=== PATIENT | male | born 1970 | race Caucasian/White ===

== ENCOUNTER → 2019-09-11 08:51 | Outpatient (BNVA) | payer MEDICARE, MEDICAID, SELFPAY | PROVIDERS: Family Provider Nurse Practitioner Family; PCP Nurse Practitioner Family; Visit Provider Nurse Practitioner Family | DX: E11.8 Type 2 diabetes mellitus with unspecified complications (principal); E78.5 Hyperlipidemia, unspecified; I10 Essential (primary) hypertension; J44.9 Chronic obstructive pulmonary disease, unspecified; I73.9 Peripheral vascular disease, unspecified; G47.33 Obstructive sleep apnea (adult) (pediatric); Z86.73 Personal history of transient ischemic attack (TIA), and cerebral infarction without residual deficits; Z91.19 Patient's noncompliance with other medical treatment and regimen | CPT/HCPCS: 80053; 80061; 83036; 85025 ==

== ENCOUNTER → 2019-12-04 08:54 | Outpatient (BNVA) | payer MEDICARE, MEDICAID, SELFPAY | PROVIDERS: Family Provider Nurse Practitioner Family; PCP Nurse Practitioner Family; Visit Provider Nurse Practitioner | DX: E11.65 Type 2 diabetes mellitus with hyperglycemia (principal); I10 Essential (primary) hypertension | CPT/HCPCS: 80053; 80061; 83036; 85025 ==

== ENCOUNTER → 2020-06-25 09:49 | Outpatient (BNVA) | payer MEDICARE, MEDICAID, SELFPAY | PROVIDERS: Family Provider Nurse Practitioner Family; PCP Nurse Practitioner Family; Visit Provider Nurse Practitioner Family | DX: E11.65 Type 2 diabetes mellitus with hyperglycemia (principal); E78.5 Hyperlipidemia, unspecified; J44.9 Chronic obstructive pulmonary disease, unspecified; I10 Essential (primary) hypertension; F41.9 Anxiety disorder, unspecified; G47.33 Obstructive sleep apnea (adult) (pediatric); Z86.73 Personal history of transient ischemic attack (TIA), and cerebral infarction without residual deficits; I73.9 Peripheral vascular disease, unspecified; Z91.19 Patient's noncompliance with other medical treatment and regimen; Z12.11 Encounter for screening for malignant neoplasm of colon | CPT/HCPCS: 80053; 80061; 83036; 84443; 85025 ==

== ENCOUNTER → 2020-11-19 08:54 | Outpatient (BNVA) | payer OTHER, MEDICAID, SELFPAY | PROVIDERS: Family Provider Nurse Practitioner Family; PCP Nurse Practitioner Family; Visit Provider Nurse Practitioner Family | DX: I10 Essential (primary) hypertension (principal); E11.65 Type 2 diabetes mellitus with hyperglycemia; E78.5 Hyperlipidemia, unspecified; Z86.73 Personal history of transient ischemic attack (TIA), and cerebral infarction without residual deficits; G47.33 Obstructive sleep apnea (adult) (pediatric); I73.9 Peripheral vascular disease, unspecified; F41.9 Anxiety disorder, unspecified; J44.9 Chronic obstructive pulmonary disease, unspecified; Z99.81 Dependence on supplemental oxygen; Z91.19 Patient's noncompliance with other medical treatment and regimen | CPT/HCPCS: 80053; 80061; 83036; 84443; 85025 ==

== ENCOUNTER → 2021-02-13 10:07 | Outpatient (BNVA) | payer OTHER, MEDICAID, SELFPAY | PROVIDERS: Family Provider Nurse Practitioner Family; PCP Nurse Practitioner Family; Visit Provider Nurse Practitioner Family | DX: I10 Essential (primary) hypertension (principal); E11.65 Type 2 diabetes mellitus with hyperglycemia; E11.8 Type 2 diabetes mellitus with unspecified complications; F41.9 Anxiety disorder, unspecified; J44.9 Chronic obstructive pulmonary disease, unspecified; E78.5 Hyperlipidemia, unspecified; F17.200 Nicotine dependence, unspecified, uncomplicated; Z99.81 Dependence on supplemental oxygen; Z91.19 Patient's noncompliance with other medical treatment and regimen; I73.9 Peripheral vascular disease, unspecified; G47.33 Obstructive sleep apnea (adult) (pediatric); Z86.73 Personal history of transient ischemic attack (TIA), and cerebral infarction without residual deficits | CPT/HCPCS: 80053; 80061; 83036; 84443; 85025 ==

== ENCOUNTER → 2021-07-06 09:59 | Outpatient (BNVA) | payer MEDICARE, MEDICAID, SELFPAY | PROVIDERS: Family Provider Nurse Practitioner Family; PCP Nurse Practitioner Family; Visit Provider Nurse Practitioner Family | DX: E11.65 Type 2 diabetes mellitus with hyperglycemia; E78.5 Hyperlipidemia, unspecified; J44.9 Chronic obstructive pulmonary disease, unspecified; I10 Essential (primary) hypertension; I73.9 Peripheral vascular disease, unspecified; F17.200 Nicotine dependence, unspecified, uncomplicated; Z99.81 Dependence on supplemental oxygen | CPT/HCPCS: 80053; 80061; 83036; 84443; 85025 ==

== ENCOUNTER → 2022-01-21 10:44 | Outpatient (BNVA) | payer MEDICARE, MEDICAID, SELFPAY | PROVIDERS: Family Provider Nurse Practitioner Family; PCP Nurse Practitioner Family; Visit Provider Nurse Practitioner Family | DX: E11.65 Type 2 diabetes mellitus with hyperglycemia (principal); E78.5 Hyperlipidemia, unspecified; I10 Essential (primary) hypertension; J44.9 Chronic obstructive pulmonary disease, unspecified; F41.9 Anxiety disorder, unspecified; E11.621 Type 2 diabetes mellitus with foot ulcer; L97.509 Non-pressure chronic ulcer of other part of unspecified foot with unspecified severity; Z86.73 Personal history of transient ischemic attack (TIA), and cerebral infarction without residual deficits; G47.33 Obstructive sleep apnea (adult) (pediatric); I73.9 Peripheral vascular disease, unspecified; F17.200 Nicotine dependence, unspecified, uncomplicated; Z99.81 Dependence on supplemental oxygen; Z91.19 Patient's noncompliance with other medical treatment and regimen | CPT/HCPCS: 80053; 80061; 83036; 84443; 85025 ==

== ENCOUNTER → 2022-06-22 08:52 | Outpatient (BNVA) | payer MEDICARE, MEDICAID, SELFPAY | PROVIDERS: Family Provider Nurse Practitioner Family; PCP Nurse Practitioner Family; Visit Provider Nurse Practitioner Family | DX: J44.9 Chronic obstructive pulmonary disease, unspecified (principal); E11.8 Type 2 diabetes mellitus with unspecified complications; E78.5 Hyperlipidemia, unspecified; E11.65 Type 2 diabetes mellitus with hyperglycemia; F41.9 Anxiety disorder, unspecified; Z12.5 Encounter for screening for malignant neoplasm of prostate; I10 Essential (primary) hypertension; Z23 Encounter for immunization; N52.9 Male erectile dysfunction, unspecified | CPT/HCPCS: 80053; 80061; 83036; 84443; 85025; G0103 ==

== ENCOUNTER → 2022-11-18 11:18 | Outpatient (BNVA) | payer MEDICARE, MEDICAID, SELFPAY | PROVIDERS: Family Provider Nurse Practitioner Family; PCP Nurse Practitioner Family; Visit Provider Nurse Practitioner Family | DX: E11.65 Type 2 diabetes mellitus with hyperglycemia (principal) | CPT/HCPCS: 80053; 80061; 83036; 84443; 85025 ==

== ENCOUNTER → 2022-11-25 10:33 | Outpatient (BNVA) | payer MEDICARE, MEDICAID, SELFPAY | PROVIDERS: Family Provider Nurse Practitioner Family; PCP Nurse Practitioner Family; Visit Provider Nurse Practitioner Family | DX: S29.9XXA Unspecified injury of thorax, initial encounter (principal); R05.9 Cough, unspecified; X58.XXXA Exposure to other specified factors, initial encounter | CPT/HCPCS: 71046 ==

== ENCOUNTER → 2023-05-16 11:35 | Outpatient (BNVA) | payer MEDICARE, MEDICAID, SELFPAY | PROVIDERS: Family Provider Nurse Practitioner Family; PCP Nurse Practitioner Family; Visit Provider Nurse Practitioner Family | DX: E11.8 Type 2 diabetes mellitus with unspecified complications (principal); E11.65 Type 2 diabetes mellitus with hyperglycemia | CPT/HCPCS: 80053; 80061; 83036; 84443; 85025 ==

== ENCOUNTER → 2023-05-17 14:42 | Outpatient (BNVA) | payer MEDICARE, MEDICAID, SELFPAY | PROVIDERS: Family Provider Nurse Practitioner Family; PCP Nurse Practitioner Family; Visit Provider Nurse Practitioner Family | DX: L72.0 Epidermal cyst (principal); L08.9 Local infection of the skin and subcutaneous tissue, unspecified | CPT/HCPCS: 87070 ==

== ENCOUNTER → 2023-07-11 12:16 | Outpatient (BNVA) | payer MEDICARE, MEDICAID, SELFPAY | PROVIDERS: Family Provider Nurse Practitioner Family; PCP Nurse Practitioner Family; Referring Provider Nurse Practitioner Family; Visit Provider Dermatology | DX: L82.1 Other seborrheic keratosis (principal); L72.0 Epidermal cyst; L81.3 Cafe au lait spots; L57.8 Other skin changes due to chronic exposure to nonionizing radiation; D37.01 Neoplasm of uncertain behavior of lip | CPT/HCPCS: 40490; 99204 ==

== ENCOUNTER → 2023-09-22 10:01 | Outpatient (BNVA) | payer MEDICARE, MEDICAID, SELFPAY | PROVIDERS: Family Provider Nurse Practitioner Family; PCP Nurse Practitioner Family; Visit Provider Nurse Practitioner Family | DX: E11.42 Type 2 diabetes mellitus with diabetic polyneuropathy (principal); E11.8 Type 2 diabetes mellitus with unspecified complications; E11.65 Type 2 diabetes mellitus with hyperglycemia; Z12.5 Encounter for screening for malignant neoplasm of prostate; N52.9 Male erectile dysfunction, unspecified | CPT/HCPCS: 80053; 80061; 83036; 84443; 85025 ==

== ENCOUNTER → 2024-06-13 10:33 | Outpatient (BNVA) | payer MEDICARE, MEDICAID, SELFPAY | PROVIDERS: Family Provider Nurse Practitioner Family; PCP Nurse Practitioner Family; Visit Provider Clinical Nurse Specialist Adult Health | DX: E11.8 Type 2 diabetes mellitus with unspecified complications (principal); E11.65 Type 2 diabetes mellitus with hyperglycemia; E78.5 Hyperlipidemia, unspecified | CPT/HCPCS: 80053; 80061; 83036; 85025 ==

== ENCOUNTER 2024-06-28 09:41 | Outpatient (CLI) | payer MEDICARE, MEDICAID, SELFPAY ==
--- NOTE | 2024-06-28 10:45 | CT_ITS ---
WS: [id number] LDCT LUNG CANCER SCREENING TECHNIQUE: Noncontrast CT of the chest with coronal and sagittal reformatted images. CLINICAL INFORMATION: F17.200 - Nicotine dependence, unspecified, uncomplicated COMPARISON: None. DLP: 59.39 mGy.cm DIvol: Mean CTDIvol: 1.10 (mGy) All CT scans at [facility] use at least one of these dose optimization techniques: automat ed exposure control; mA and/or kV adjustment per patient size (includes targeted exams where dose is matched to clinical indication); or iterative reconstruction. FINDINGS: 4 mm noncalcified nodule RIGHT lower lobe. Normal caliber thoracic aorta. No mediastinal or hilar lymphadenopathy. Calcified AP window and RIGHT hilar lymph nodes. Calcified granuloma RIGHT lower lobe. No suspicious minor parenchymal opacities. Adrenal glands are normal. Normal GE junction. No axillary lymphadenopathy. Moderate thoracic kyphosis. Hypertrophic changes thoracic spine. Disc osteophyte complexes in the mid thoracic spine. Moderate central canal stenosis at T8-T9 with LEFT paracentral disc osteophyte protr usion. Prominent facet arthropathy in the thoracic spine with ligamentum flavum calcification also re sults in mild to moderate multilevel central canal stenosis. Findings could be further evaluated with thoracic spine MRI. Subcutaneous skin lesion in the RIGHT upper back likely sebaceous cyst approximately T8 level. Recomm end clinical correlation. CT/CT lung screening [id number] IMPRESSION: Thoracic canal stenosis described above. Recommend thoracic spine M RI. LUNG-RADS: 2S-Benign Appearance or Behavior with Significant Findings FOLLOW UP: 12 Month: Continue annual screening with LDCT
== END 2024-06-28 09:42 | disposition home or self-care (01) ==
LOC: RAD 09:42
PROVIDERS: Family Provider Nurse Practitioner Family; PCP Clinical Nurse Specialist Adult Health; Visit Provider Clinical Nurse Specialist Adult Health
DX: Z12.2 Encounter for screening for malignant neoplasm of respiratory organs (principal); J44.9 Chronic obstructive pulmonary disease, unspecified; Z87.891 Personal history of nicotine dependence; R91.1 Solitary pulmonary nodule; J84.10 Pulmonary fibrosis, unspecified; M40.204 Unspecified kyphosis, thoracic region; M25.78 Osteophyte, vertebrae; M48.04 Spinal stenosis, thoracic region; M46.94 Unspecified inflammatory spondylopathy, thoracic region; L72.3 Sebaceous cyst
CPT/HCPCS: 71271

== ENCOUNTER 2024-07-11 05:08 | Inpatient (IN) | payer MEDICARE, MEDICAID, SELFPAY ==
[2024-07-11] VITALS (19 sets, daily range): BP systolic 112–185; BP diastolic 52–116; PULSE 88–112; RESP 12–84; TEMP 36.2–37.2; O2SAT 91–100; BMI 25.9
--- NOTE | 2024-07-11 05:12 | USR_ITS ---
PROCEDURE INFORMATION: Exam: US Abdomen, Limited; Right Upper Quadrant Exam date and time: 07/11/2024 5:49 AM Age: 54 years old Clinical indication: Abdominal pain; Acute; Additional info: Right upper quadrant pain, concern for cholecystitis TECHNIQUE: Imaging protocol: Real time ultrasound of the abdomen with image documentation. Limited exam focused on the right upper quadrant. COMPARISON: CT lung screening [id number] 06/28/2024 10:13 AM FINDINGS: Liver: Normal. No masses. Gallbladder: There is at least a single large gallstone within the gallbladder. No definite pericholecystic fluid or gallbladder wall thickening is noted. Biliary ducts: Normal. No stones. No dilation. Common bile duct measures 6 mm. Pancreas: The pancreas is poorly seen secondary to overlying bowel gas. Right kidney: Normal. No mass. No hydronephrosis. The right kidney measures 12.4 cm in length and is normal in echotexture. IVC: Obscured secondary to overlying bowel gas. Aorta: Limited visualization. The visualized portion of the aorta is normal in caliber. US/US gall bladder [id number] IMPRESSION: 1. Cholelithiasis.
--- NOTE | 2024-07-11 05:13 | ED_ITS ---
Documented by User: Ade Marcano MD 07/11/24 05:45 HPI - Abdominal Pain 2 General: Chief Complaint: Abdominal Pain Stated Complaint: abd pain Time Seen by Provider: 07/11/24 05:09 History of Present Illness: 54-year-old man with a history of tobacc o dependence diabetic neuropathy diabetic foot ulcer nighttime oxygen use, peripheral vascular disease, hypertension, hyperlipidemia who presents the emergency room with nausea vomiting and right upper quadrant abdominal pain. This started overnight. Also, of note he has on his right foot is fifth digit is black and appears about fall off. No known fevers. Related Data Home Medications Medication Instructions Recorded Confirmed empagliflozin 25 mg tablet 25 mg PO DAILY 07/11/24 07/11/24 (Jardiance) Previous Rx's Medication Instructions Recorded albuterol sulfate 90 mcg/actuation 2 inh inhalation Q4H PRN shortness 09/22/23 aerosol inhaler (Ventolin HFA) of breath or wheezing 30 days #6.7 grams aspirin 81 mg tablet,delayed 81 mg PO DAILY 30 days #30 tabs 09/22/23 release (Adult Low Dose Aspirin) fluticasone 250 mcg-salmeterol 50 1 inh inhalation BID 30 days #1 ea 09/22/23 mcg/dose blistr powdr for inhalation (Advair Diskus) citalopram 20 mg tablet 20 mg PO DAILY 30 days #30 tabs 06/13/24 dulaglutide 1.5 mg/0.5 mL 1.5 mg (0.5 mL) SUBCUT .weekly 30 06/13/24 subcutaneous pen injector days #4 ea (Trulicity) insulin degludec 100 unit/mL (3 70 unit (0.7 mL) SUBCUT DAILY 30 06/13/24 mL) subcutaneous pen (Tresiba days #15 mL FlexTouch U-100 insulin) lisinopril 2.5 mg tablet 2.5 mg PO DAILY 30 days #30 tabs 06/13/24 Allergies Allergy/AdvReac Type Severity Reaction Status Date / Time gabapentin Allergy Unknown Verified 07/11/24 05:16 Penicillins Allergy Unknown Verified 07/11/24 05:16 Review of Systems 2 Narrative: Constitutional symptoms: Negative except as documented in HPI. Skin symptoms: Negative except as documented in HPI. Eye symptoms: Negative except as documented in HPI. ENMT symptoms: Negative except as documented in HPI. Respiratory symptoms: Negative except as documented in HPI. Cardiovascular symptoms: Negative except as documented in HPI. Gastrointestinal symptoms: Negative except as documented in HPI. Genitourinary symptoms: Negative except as documented in HPI. Musculoskeletal symptoms: Negative except as documented in HPI. Neurologic symptoms: Negative except as documented in HPI. Psychiatric symptoms: Negative except as documented in HPI. Endocrine symptoms: Negative except as documented in HPI. PFSH ED 2 PFSH: Medical History (Updated 07/11/24 @ 07:37 by Oseas Swift MD) Tobacco abuse disorder Diabetic neuropathy Diabetic foot ulcer Dependence on nocturnal oxygen therapy History of MA (myocardial infarction) On supplemental oxygen by nasal cannula Enrolled in chronic care management Noncompliance Chronic obstructive pulmonary disease, unspecified Diabetes mellitus type 2 with complications, uncontrolled PVD (peripheral vascular disease) MARKO (obstructive sleep apnea) unable to tolerate Cpap due to claustrophobia Essential (primary) hypertension Hyperlipidemia, acquired History of TIA (transient ischemic attack) saw neurology after his TIA/stroke. Surgical History H/O right inguinal hernia repair Family History Other Diabetes Heart disease Stroke Social History (Updated 06/13/24 @ 20:00 by Junior Grey NP) Smoking and tobacco/nicotine status: current every day tobacco/nicotine user cigarettes [ Other cigarette details: 35 pack year history] Second hand smoke exposure: Yes Alcohol intake: never Substance/Drug Use: never Adopted: No Caregiver/support person: No Lives independently: Yes Household members: none Marital status: Single service: No Current occupational status: disabled Do you think of yourself as: Straight/Heterosexual Current gender identity: Male Physical Exam 2 Narrative: EXAM NARRATIVE: General: Alert, patient is in some distress with pain. Skin: Warm, dry. Head: Normocephalic, atraumatic. Neck: Supple, trachea midline. Eye: Extraocular movements are intact. Ears, nose, mouth and throat: mucosa moist. Cardiovascular: Regular, Normal peripheral perfusion. Respiratory: Lungs are clear to auscultation, respirations are non-labored, breath sounds are equal, Symmetrical chest wall expansion. Gastrointestinal: Soft, severe right upper quadrant tenderness, Non distended Musculoskeletal: Normal ROM, right fifth digit is black and smells foul. Neurological: Alert and oriented, No focal neurological deficit observed. Psychiatric: Cooperative, appropriate mood & affect. Course 2 Vital Signs: Vital signs: Vital Signs Temperature 97.9 F 07/11/24 05:11 Pulse Rate 88 07/11/24 05:16 Respiratory Rate 84 H 07/11/24 06:38 Blood Pressure 185/116 07/11/24 06:38 Pulse Oximetry 96 07/11/24 06:38 Oxygen Delivery Me thod Room Air 07/11/24 05:16 MDM - Abdominal Pain Medical Decision Making Patient care transitioned to Dr. Swift at shift change. Lab Data 07/11/24 05:30 07/11/24 05:30 Labs/Radiology: Laboratory Results WBC 10.92 10^3/uL (3.29-11.43) 07/11/24 05:30 RBC 5.06 10^6/uL (3.85-5.65) 07/11/24 05:30 Hgb 15.30 g/dL (11.27-16.99) 07/11/24 05:30 Hct 45.4 % (37-53) 07/11/24 05:30 MCV 89.7 fl (82-101) 07/11/24 05:30 MCH 30.2 pg (27-33) 07/11/24 05:30 MCHC 33.7 g/dL (30-55) 07/11/24 05:30 RDW 12.4 % (12.1-15.1) 07/11/24 05:30 Plt Count 328 10^3/cmm (157-399) 07/11/24 05:30 MPV 9.3 fL (7.4-10.4) 07/11/24 05:30 Neut % (Auto) 84.4 % 07/11/24 05:30 Lymph % (Auto) 9.5 % 07/11/24 05:30 Miller % (Auto) 4.7 % 07/11/24 05:30 Eos % (Auto) 0.7 % 07/11/24 05:30 Baso % (Auto) 0.4 % 07/11/24 05:30 Neut # (Auto) 9.22 10^3/uL (1.8-7.7) H 07/11/24 05:30 Lymph # (Auto) 1.0 10^3/uL (0.8-4.8) 07/11/24 05:30 Miller # (Auto) 0.5 10^3/uL (0.2-0.9) 07/11/24 05:30 Eos # (Auto) 0.1 10^3/uL (0.0-0.8) 07/11/24 05:30 Baso # (Auto) 0.0 10^3/uL (0.0-0.1) 07/11/24 05:30 Nucleated RBC % (auto) 0 % 07/11/24 05:30 Nucleated RBCs # 0.0 /100WBC 07/11/24 05:30 Sodium 140 mmol/L (136-145) 07/11/24 05:30 Potassium 3.7 mmol/L (3.5-5.1) 07/11/24 05:30 Chloride 99 mmol/L (98-107) 07/11/24 05:30 Carbon Dioxide 24 mmol/L (22-29) 07/11/24 05:30 Anion Gap 20.7 (5-19) H 07/11/24 05:30 BUN 7 mg/dL (6-20) 07/11/24 05:30 Creatinine 0.5 mg/dL (0.7-1.2) L 07/11/24 05:30 GFR Calculation 173.3 mL/min (90-130) H 07/11/24 05:30 Glucose 247 mg/dL (65-115) H 07/11/24 05:30 Estimat Average Glucose 306 07/11/24 05:30 Hemoglobin A1c 12.3 % (4.0-6.0) H 07/11/24 05:30 Calculated Osmolality 296 mOsm/kg (285-295) H 07/11/24 05:30 Lactic Acid 2.4 mmol/L (0.5-2.2) H 07/11/24 05:30 Calcium 8.9 mg/dL (8.5-10.5) 07/11/24 05:30 Total Bilirubin 0.7 mg/dL (0.15-1.2) 07/11/24 05:30 AST 11 U/L (0-40) 07/11/24 05:30 ALT 9 U/L (0-41) 07/11/24 05:30 Alkaline Phosphatase 98 U/L (40-130) 07/11/24 05:30 C-Reactive Protein 5.6 mg/L (0.0-4.9) H 07/11/24 05:30 Total Protein 6.7 g/dL (6.6-8.7) 07/11/24 05:30 Albumin 3.8 g/dL (3.5-5.2) 07/11/24 05:30 Globulin 2.9 g/dL (1.3-4.6) 07/11/24 05:30 Lipase 9 U/L (13-60) L 07/11/24 05:30 Coronavirus (PCR) Negative (Negative) 07/11/24 05:30 Influenza A (PCR) Negative (Negative) 07/11/24 05:30 Influenza Type B (PCR) Negative (Negative) 07/11/24 05:30 RSV (PCR) Negative (Negative) 07/11/24 05:30 Discharge Plan Discharge Patient Disposition: Admitted As Inpatient Clinical Impression: Uncontrolled diabetes mellitus, Gangrene of toe of right foot, Cholelithiasis, Angioedema of lips, Chronic hypertension Prescriptions: No Action citalopram 20 mg tablet 20 mg PO DAILY 30 Days Qty: 30 11RF Trulicity 1.5 mg/0.5 mL pen injector 1.5 mg SUBCUT .weekly 30 Days Qty: 4 11RF empagliflozin 25 mg tablet 25 mg PO DAILY 30 Days Qty: 30 11RF Tresiba FlexTouch U-100 100 unit/mL (3 mL) insulin pen 70 unit SUBCUT DAILY 30 Days Qty: 15 11RF lisinopril 2.5 mg tablet 2.5 mg PO DAILY 30 Days Qty: 30 11RF omeprazole 40 mg capsule,delayed release(DR/EC) 40 mg PO DAILY Qty: 30 11RF albuterol sulfate [Ventolin HFA] 90 mcg/actuation HFA aerosol inhaler 2 inh INHALATION Q4H PRN (Reason: shortness of breath or wheezing) 30 Days Qty: 6.7 2RF aspirin [Adult Low Dose Aspirin] 81 mg tablet,delayed release (DR/EC) 81 mg PO DAILY 30 Days Qty: 30 2RF fluticasone propion-salmeterol [Advair Diskus] 250-50 mcg/dose blister with device 1 inh INHALATION BID 30 Days Qty: 1 2RF Referrals: Ying Pearce FNP-C [Nurse Practitioner] - Junior Grey PUG MILL OPERATOR HELPER [Primary Care Provider] - Coding Level of Care Code ED Propagator for Chg Fwd Documented by User: Oseas Swift MD 07/11/24 07:37 HPI - Abdominal Pain 2 General: Chief Complaint: Abdominal Pain Stated Complaint: abd pain Time Seen by Provider: 07/11/24 05:09 History of Present Illness: Associated Symptoms: Denies chills, dysuria, fever(s) and syncope Related Data Home Medications Medication Instructions Recorded Confirmed empagliflozin 25 mg tablet 25 mg PO DAILY 07/11/24 07/11/24 (Jardiance) Previous Rx's Medication Instructions Recorded albuterol sulfate 90 mcg/actuation 2 inh inhalation Q4H PRN shortness 09/22/23 aerosol inhaler (Ventolin HFA) of breath or wheezing 30 days #6.7 grams aspirin 81 mg tablet,delayed 81 mg PO DAILY 30 days #30 tabs 09/22/23 release (Adult Low Dose Aspirin) fluticasone 250 mcg-salmeterol 50 1 inh inhalation BID 30 days #1 ea 09/22/23 mcg/dose blistr powdr for inhalation (Advair Diskus) citalopram 20 mg tablet 20 mg PO DAILY 30 days #30 tabs 06/13/24 dulaglutide 1.5 mg/0.5 mL 1.5 mg (0.5 mL) SUBCUT .weekly 30 06/13/24 subcutaneous pen injector days #4 ea (Trulicity) insulin degludec 100 unit/mL (3 70 unit (0.7 mL) SUBCUT DAILY 30 06/13/24 mL) subcutaneous pen (Tresiba days #15 mL FlexTouch U-100 insulin) lisinopril 2.5 mg tablet 2.5 mg PO DAILY 30 days #30 tabs 06/13/24 Allergies Allergy/AdvReac Type Severity Reaction Status Date / Time gabapentin Allergy Unknown Verified 07/11/24 05:16 Penicillins Allergy Unknown Verified 07/11/24 05:16 Review of Systems 2 General: Reports: 10 or more systems reviewed and unremarkable except in HPI and below Const: Denies: fever(s) or chills Card: Denies: chest pain, edema or syncope Resp: Denies: dyspnea or productive cough : Denies: dysuria or urinary frequency Musc: Denies: neck pain, extremity pain or extremity swelling Skin/Breast: Denies: rash or erythema Neuro: Denies: headache(s), numbness in extremities, weakness in extremities, lack of coordination or difficulty walking PFSH ED 2 PFSH: Medical History (Updated 07/11/24 @ 07:37 by Oseas Swift MD) Tobacco abuse disorder Diabetic neuropathy Diabetic foot ulcer Dependence on nocturnal oxygen therapy History of MA (myocardial infarction) On supplemental oxygen by nasal cannula Enrolled in chronic care management Noncompliance Chronic obstructive pulmonary disease, unspecified Diabetes mellitus type 2 with complications, uncontrolled PVD (peripheral vascular disease) MARKO (obstructive sleep apnea) unable to tolerate Cpap due to claustrophobia Essential (primary) hypertension Hyperlipidemia, acquired History of TIA (transient ischemic attack) saw neurology after his TIA/stroke. Surgical History H/O right inguinal hernia repair Family History Other Diabetes Heart disease Stroke Social History (Updated 06/13/24 @ 20:00 by Junior Grey NP) Smoking and tobacco/nicotine status: current every day tobacco/nicotine user cigarettes [ Other cigarette details: 35 pack year history] Second hand smoke exposure: Yes Alcohol intake: never Substance/Drug Use: never Adopted: No Caregiver/support person: No Lives independently: Yes Household members: none Marital status: Single service: No Current occupational status: disabled Do you think of yourself as: Straight/Heterosexual Current gender identity: Male Physical Exam 2 Narrative: EXAM NARRATIVE: General: Alert, patient is in some distress with pain. Skin: Warm, dry. wet gangrene medial right 5th toe Head: Normocephalic, atraumatic. Neck: Supple, trachea midline. Eye: Extraocular movements are intact. Ears, nose, mouth and throat: mucosa moist. Cardiovascular: Regular, Normal peripheral perfusion. Respiratory: Lungs are clear to auscultation, respirations are non-labored, breath sounds are equal, Symmetrical chest wall expansion. Gastrointestinal: Soft, severe right upper quadrant tenderness, Non distended Musculoskeletal: Normal ROM, right fifth digit is black and smells foul. Neurological: Alert and oriented, No focal neurological deficit observed. Psychiatric: Cooperative, appropriate mood & affect. Course 2 Reevaluation(s): Reevaluation #1: This section by Dr. Swift. I took over for the patient at 6 AM. Patient seen and examined. Patient reports abdominal pain is resolved as long as he is just sitting here. He is no longer vomiting. However on abdominal exam he still has tenderness in the right upper quadrant. solid waste technician tells me there is a large gallstone filling the lumen of the gallbladder and a mildly dilated common bile duct. There is a foul smell in the room and the patient's right fifth toe is gangrenous on the medial aspect. There is a grayish-green membrane and discharge. No obvious cellulitis around the gangrene. I have ordered an x-ray of the right toes. Patient also has developed angioedema of the lips. His tongue and uvula are not affected. Patient reports he does take lisinopril. He is never had this problem before. His last dose of lisinopril was reportedly on Tuesday. As such, he has had elevated blood pressures here in the emergency department since he has not been on his blood pressure medication on account of the vomiting. After we have ultrasound results, x-ray results of his toes, and blood work resulted I am going to consult podiatry and general surgery. Patient's lactic acid was mildly elevated. No fever. White count actually normal. Blood cultures have been ordered already. I am going to give him another liter of fluid for a total of 2 L to fluid resuscitate him given the vomiting. Vital Signs: Vital signs: Vital Signs Temperature 97.9 F 07/11/24 05:11 Pulse Rate 88 07/11/24 05:16 Respiratory Rate 84 H 07/11/24 06:38 Blood Pressure 185/116 07/11/24 06:38 Pulse Oximetry 96 07/11/24 06:38 Oxygen Delivery Me thod Room Air 07/11/24 05:16 MDM - Abdominal Pain Medical Decision Making Patient care transitioned to Dr. Swift at shift change. 1. Patient's developed a case of angioedema of his lips. He is on lisinopril. It is not severe to the point where it is causing him not to be able to speak, swallow, or have difficulty breathing. Patient will be given Benadryl, Solu- Medrol, IV Tylenol and we will continue to monitor. 2. Patient has uncontrolled diabetes with hemoglobin A1c of 12.3 today. Patient has been living on his own and only intermittently taking his medication. Patient will need to be admitted to the hospital for diabetic education, medication management. He has gangrene of the right fifth toe, which is likely result of this uncontrolled diabetes. 3. Gangrene right fifth toe. CRP minimally elevated. No fever. No obvious signs of osteomyelitis on x-ray on my interpretation. No white count. Does not appear to be making him septic but is something that needs to be taken care of before he becomes septic. Dr. Fall, podiatry, has been consulted and will take him to the operating room. 4. Right upper quadrant pain with cholelithiasis. At this time no obvious signs of cholecystitis based on what I can tell but the patient continues to have right upper quadrant tenderness on repeat evaluations. He may be trending towards cholecystitis. CBD 6 mm. T. bili within normal limits. Alk phos okay. I consulted with Dr. Dhillon who will do a consultation with the patient Lab Data 07/11/24 05:30 07/11/24 05:30 Labs/Radiology: Laboratory Results WBC 10.92 10^3/uL (3.29-11.43) 07/11/24 05:30 RBC 5.06 10^6/uL (3.85-5.65) 07/11/24 05:30 Hgb 15.30 g/dL (11.27-16.99) 07/11/24 05:30 Hct 45.4 % (37-53) 07/11/24 05:30 MCV 89.7 fl (82-101) 07/11/24 05:30 MCH 30.2 pg (27-33) 07/11/24 05:30 MCHC 33.7 g/dL (30-55) 07/11/24 05:30 RDW 12.4 % (12.1-15.1) 07/11/24 05:30 Plt Count 328 10^3/cmm (157-399) 07/11/24 05:30 MPV 9.3 fL (7.4-10.4) 07/11/24 05:30 Neut % (Auto) 84.4 % 07/11/24 05:30 Lymph % (Auto) 9.5 % 07/11/24 05:30 Miller % (Auto) 4.7 % 07/11/24 05:30 Eos % (Auto) 0.7 % 07/11/24 05:30 Baso % (Auto) 0.4 % 07/11/24 05:30 Neut # (Auto) 9.22 10^3/uL (1.8-7.7) H 07/11/24 05:30 Lymph # (Auto) 1.0 10^3/uL (0.8-4.8) 07/11/24 05:30 Miller # (Auto) 0.5 10^3/uL (0.2-0.9) 07/11/24 05:30 Eos # (Auto) 0.1 10^3/uL (0.0-0.8) 07/11/24 05:30 Baso # (Auto) 0.0 10^3/uL (0.0-0.1) 07/11/24 05:30 Nucleated RBC % (auto) 0 % 07/11/24 05:30 Nucleated RBCs # 0.0 /100WBC 07/11/24 05:30 Sodium 140 mmol/L (136-145) 07/11/24 05:30 Potassium 3.7 mmol/L (3.5-5.1) 07/11/24 05:30 Chloride 99 mmol/L (98-107) 07/11/24 05:30 Carbon Dioxide 24 mmol/L (22-29) 07/11/24 05:30 Anion Gap 20.7 (5-19) H 07/11/24 05:30 BUN 7 mg/dL (6-20) 07/11/24 05:30 Creatinine 0.5 mg/dL (0.7-1.2) L 07/11/24 05:30 GFR Calculation 173.3 mL/min (90-130) H 07/11/24 05:30 Glucose 247 mg/dL (65-115) H 07/11/24 05:30 Estimat Average Glucose 306 07/11/24 05:30 Hemoglobin A1c 12.3 % (4.0-6.0) H 07/11/24 05:30 Calculated Osmolality 296 mOsm/kg (285-295) H 07/11/24 05:30 Lactic Acid 2.4 mmol/L (0.5-2.2) H 07/11/24 05:30 Calcium 8.9 mg/dL (8.5-10.5) 07/11/24 05:30 Total Bilirubin 0.7 mg/dL (0.15-1.2) 07/11/24 05:30 AST 11 U/L (0-40) 07/11/24 05:30 ALT 9 U/L (0-41) 07/11/24 05:30 Alkaline Phosphatase 98 U/L (40-130) 07/11/24 05:30 C-Reactive Protein 5.6 mg/L (0.0-4.9) H 07/11/24 05:30 Total Protein 6.7 g/dL (6.6-8.7) 07/11/24 05:30 Albumin 3.8 g/dL (3.5-5.2) 07/11/24 05:30 Globulin 2.9 g/dL (1.3-4.6) 07/11/24 05:30 Lipase 9 U/L (13-60) L 07/11/24 05:30 Coronavirus (PCR) Negative (Negative) 07/11/24 05:30 Influenza A (PCR) Negative (Negative) 07/11/24 05:30 Influenza Type B (PCR) Negative (Negative) 07/11/24 05:30 RSV (PCR) Negative (Negative) 07/11/24 05:30 XR interpretation done by ED provider, pending radiology final review Discharge Plan Discharge Patient Disposition: Admitted As Inpatient Clinical Impression: Uncontrolled diabetes mellitus, Gangrene of toe of right foot, Cholelithiasis, Angioedema of lips, Chronic hypertension Prescriptions: No Action citalopram 20 mg tablet 20 mg PO DAILY 30 Days Qty: 30 11RF Trulicity 1.5 mg/0.5 mL pen injector 1.5 mg SUBCUT .weekly 30 Days Qty: 4 11RF empagliflozin 25 mg tablet 25 mg PO DAILY 30 Days Qty: 30 11RF Tresiba FlexTouch U-100 100 unit/mL (3 mL) insulin pen 70 unit SUBCUT DAILY 30 Days Qty: 15 11RF lisinopril 2.5 mg tablet 2.5 mg PO DAILY 30 Days Qty: 30 11RF omeprazole 40 mg capsule,delayed release(DR/EC) 40 mg PO DAILY Qty: 30 11RF albuterol sulfate [Ventolin HFA] 90 mcg/actuation HFA aerosol inhaler 2 inh INHALATION Q4H PRN (Reason: shortness of breath or wheezing) 30 Days Qty: 6.7 2RF aspirin [Adult Low Dose Aspirin] 81 mg tablet,delayed release (DR/EC) 81 mg PO DAILY 30 Days Qty: 30 2RF fluticasone propion-salmeterol [Advair Diskus] 250-50 mcg/dose blister with device 1 inh INHALATION BID 30 Days Qty: 1 2RF Referrals: Ying Pearce FNP-C [Nurse Practitioner] - Junior Grey NP [Primary Care Provider] - Coding Level of Care Code ED Propagator for Sincereg Echo
[2024-07-11] MEDS: ondansetron 2 mg/ML SDV 2 mL 8 MG IVP (05:26)
[2024-07-11] MEDS: HYDROmorphone 1 mg/mL INJ 1 mL IVP (05:26)
[2024-07-11 05:42] LABS: Basophils % 0.4 %; Eosinophils # 0.1 10^3/uL (0.0-0.8); Eosinophils % 0.7 %; Hematocrit 45.4 % (37-53); Lymphocytes % 9.5 %; Mean Corpuscular HGB Conc 33.7 g/dL (30-55); Mean Corpuscular Hemoglobin 30.2 pg (27-33); Mean Corpuscular Volume 89.7 fl (82-101); Mean Platelet Volume 9.3 fL (7.4-10.4); Monocytes # 0.5 10^3/uL (0.2-0.9); Monocytes % 4.7 %; Neutrophils # 9.22 10^3/uL (1.8-7.7); Neutrophils % 84.4 %; Nucleated Red Blood Cells % 0 %; Platelet Count 328 10^3/cmm (157-399); Red Blood Count 5.06 10^6/uL (3.85-5.65); Red Cell Distribution Width 12.4 % (12.1-15.1); White Blood Count 10.92 10^3/uL (3.29-11.43)
[2024-07-11 06:00] LABS: Alanine Aminotransferase 9 U/L (0-41); Albumin Level 3.8 g/dL (3.5-5.2); Alkaline Phosphatase 98 U/L (40-130); Aspartate Amino Transferase 11 U/L (0-40); Blood Urea Nitrogen 7 mg/dL (6-20); Calcium 8.9 mg/dL (8.5-10.5); Carbon Dioxide 24 mmol/L (22-29); Chloride 99 mmol/L (98-107); Creatinine Clr Calc Pharmacy 177.6206; Globulin 2.9 g/dL (1.3-4.6); Glomerular Filtration Rate 173.3 mL/min (90-130); Glucose 247 mg/dL (65-115); Lipase 9 U/L (13-60); Osmolality Calculated 296 mOsm/kg (285-295); Sodium 140 mmol/L (136-145); Total Bilirubin 0.7 mg/dL (0.15-1.2); Total Protein 6.7 g/dL (6.6-8.7)
[2024-07-11 06:01] LABS: Lactic Sepsis W/Reflex 2.4 mmol/L (0.5-2.2)
[2024-07-11 06:05] LABS: Anion Gap 20.7 (5-19); Potassium 3.7 mmol/L (3.5-5.1)
[2024-07-11 06:24] LABS: Covid PCR NEGATIVE (Negative); Influenza A NEGATIVE (Negative); Influenza B NEGATIVE (Negative); Respiratory Syncytial Virus Ce NEGATIVE (Negative)
--- NOTE | 2024-07-11 06:40 | XRR_ITS ---
PROCEDURE INFORMATION: Exam: XR Right Toe(s) Exam date and time: 07/11/2024 6:54 AM Age: 54 years old Clinical indication: Other: Gangrene RT pinky toe; Additional info: Gangrene RT 5th toe TECHNIQUE: Imaging protocol: Radiologic exam of the right toes. Views: Minimum 2 views. COMPARISON: CR XR foot RT min 3V* [id number] 01/31/2019 10:59 AM FINDINGS: Bones/joints: No fracture or dislocation is appreciated. Joint spaces are relatively well preserved. No bone destruction or periostitis is appreciated. Bony mineralization is decreased. Soft tissues: No acute soft tissue abnormalities are noted. XR/XR toe RT min 2V [id number] IMPRESSION: 1. Bony demineralization.
[2024-07-11 06:53] LABS: C Reactive Protein 5.6 mg/L (0.0-4.9)
[2024-07-11] MEDS: labetalol 5 mg/mL SDV 20mL 20 MG IVP (06:59)
[2024-07-11] MEDS: diphenhydrAMINE 50 mg/mL SDV 1mL 25 MG IVP (07:01)
[2024-07-11] MEDS: methylPREDNISolone sod succ 125 mg/2 mL INJ IVP (07:01)
[2024-07-11] MEDS: morphine 4 mg/mL SDV 1 mL IVP (07:02)
[2024-07-11] MEDS: ondansetron 2 mg/ML SDV 2 mL 4 MG IVP (07:03)
[2024-07-11] MEDS: sodium chloride 0.9% 1,000 ML 999 ML IV (07:03)
[2024-07-11] MEDS: acetaminophen 1,000 MG/100 ML PIGGYBACK 400 MG IV (07:04)
[2024-07-11] MEDS: methylPREDNISolone sod succ 125 MG in water for injection-sterile 2 ML 24 MG IVP (07:10)
--- NOTE | 2024-07-11 07:14 | PC.NURSE ---
took over pt care from ROLO Gotti at 0710
[2024-07-11 07:15] LABS: Estmated Average Glucose 306; Hemoglobin A1C 12.3 % (4.0-6.0)
[2024-07-11 07:26] LABS: Reflex Lactate Order REFLEX LACTIC ORDERD
--- NOTE | 2024-07-11 07:40 | P.CONIM_ITS ---
Providers/Reason For Consult 2 Consulting Physician/Specialty*: Lester Fall D.P.M./podiatry Reason for Consult*: gangrene right foot Primary Care Provider: Junior Grey History of Present Illness History of Present Illness Brandan Lima is a 54 year old male presents to the emergency department with several complaints, I was consulted for evaluation of gangrene of the right fifth toe and fourth webspace approximately 1 week in duration, of note patient also complains of abdominal pain and was found to have cholecystitis, he has angioedema, hypertension, peripheral vascular disease, uses oxygen at night. Patient has not been taking care of himself lives alone, moved here from [place] and his family lives in [place]. No food or water intake today, he last ate yesterday. Denies fever or chills. Complains of redness, drainage and malodor at the right foot. Review of Systems 2 General: Reports: 10 or more systems reviewed and unremarkable except in HPI and below Const: Denies: fever(s) or chills Eyes: Denies: change in vision Card: Denies: chest pain or palpitations Resp: Denies: dyspnea or productive cough GI: Denies: abdominal pain, nausea or vomiting : Denies: flank pain Musc: Reports: extremity swelling, joint stiffness and deformity Skin/Breast: Reports: erythema, sores, changes in skin color, dry skin, nail changes and change in hair Neuro: Reports: numbness in extremities, sensory changes and difficulty walking Psych: Denies: suicidal ideation Endo: Denies: change in body appearance Gerson/Lymph: Denies: tender lymph nodes Medications/Allergies Home Medications Medication Instructions Recorded Confirmed Last Taken Type albuterol sulfate 90 mcg/actuation 2 inh inhalation Q4H PRN shortness 09/22/23 07/11/24 Unknown Rx aerosol inhaler (Ventolin HFA) of breath or wheezing 30 days #6.7 grams aspirin 81 mg tablet,delayed 81 mg PO DAILY 30 days #30 tabs 09/22/23 07/11/24 Unknown Rx release (Adult Low Dose Aspirin) fluticasone 250 mcg-salmeterol 50 1 inh inhalation BID 30 days #1 ea 09/22/23 07/11/24 Unknown Rx mcg/dose blistr powdr for inhalation (Advair Diskus) citalopram 20 mg tablet 20 mg PO DAILY 30 days #30 tabs 06/13/24 07/11/24 Unknown Rx dulaglutide 1.5 mg/0.5 mL 1.5 mg (0.5 mL) SUBCUT .weekly 30 06/13/24 07/11/24 Unknown Rx subcutaneous pen injector days #4 ea (Trulicity) insulin degludec 100 unit/mL (3 70 unit (0.7 mL) SUBCUT DAILY 30 06/13/24 07/11/24 Unknown Rx mL) subcutaneous pen (Tresiba days #15 mL FlexTouch U-100 insulin) lisinopril 2.5 mg tablet 2.5 mg PO DAILY 30 days #30 tabs 06/13/24 07/11/24 Unknown Rx empagliflozin 25 mg tablet 25 mg PO DAILY 07/11/24 07/11/24 Unknown History (Jardiance) Allergies Allergy/AdvReac Type Severity Reaction Status Date / Time gabapentin Allergy Unknown Verified 07/11/24 05:16 Penicillins Allergy Unknown Verified 07/11/24 05:16 Current Medications Generic Name Dose Route Start Last Admin Trade Name Freq PRN Reason Stop Dose Admin Sodium Chloride 1,000 mls @ 999 mls/hr 07/11/24 06:44 07/11/24 07:03 Sodium Chloride 0.9% IV 07/11/24 07:44 999 mls/hr .Q1H1M ONE Administration PFSH Acute 2 PFSH: Medical History (Updated 07/11/24 @ 07:50 by Lester Fall DPM) Tobacco abuse disorder Diabetic neuropathy Diabetic foot ulcer Dependence on nocturnal oxygen therapy History of [place] (myocardial infarction) On supplemental oxygen by nasal cannula Enrolled in chronic care management Noncompliance Chronic obstructive pulmonary disease, unspecified Diabetes mellitus type 2 with complications, uncontrolled PVD (peripheral vascular disease) MARKO (obstructive sleep apnea) unable to tolerate Cpap due to claustrophobia Essential (primary) hypertension Hyperlipidemia, acquired History of TIA (transient ischemic attack) saw neurology after his TIA/stroke. Surgical History H/O right inguinal hernia repair Family History Other Diabetes Heart disease Stroke Social History (Updated 06/13/24 @ 20:00 by Junior Grey NP) Smoking and tobacco/nicotine status: current every day tobacco/nicotine user cigarettes [ Other cigarette details: 35 pack year history] Second hand smoke exposure: Yes Alcohol intake: never Substance/Drug Use: never Adopted: No Caregiver/support person: No Lives independently: Yes Household members: none Marital status: Single service: No Current occupational status: disabled Do you think of yourself as: Straight/Heterosexual Current gender identity: Male Vitals/I&O/Wt Last Vital Signs Temp 97.9 F 07/11/24 05:11 Pulse 88 07/11/24 05:16 Resp 84 H 07/11/24 06:38 BP 185/116 07/11/24 06:38 Pulse Ox 96 07/11/24 06:38 O2 Del Method Room Air 07/11/24 05:16 07/10/24 07/11/24 07/11/24 22:59 06:59 14:59 Intake Total 500 / 500 Balance 500 / 500 Weight last 48 hrs Weight 176 lb Physical Exam 2 Narrative: Vascular: Pedal pulses palpable dorsalis pedis and posterior tibial arteries bilaterally, delayed capillary refill time right fifth toe. Neurological: Absent protective sensation at the bilateral foot, tested with Ferrum Nneka monofilament. Dermatological: Wet gangrene at the right fifth toe with purulent drainage and strong pungent malodor, erythema localized at the dorsal lateral aspect of the right forefoot without proximal streaking. Wound to the right lateral fifth toe probes to bone. The entire aspect of the right toe laterally is devitalized. Grade 2 wound at the lateral aspect of the right fourth toe down to subcutaneous tissue with fibrogranular base 80% fibrotic 20% granular. Dystrophic toenails x 10 Musculoskeletal: No pain to palpation right foot secondary to neuropathy. Tailor's bunion bilaterally and fifth hammertoe digit bilaterally. Const: COMMON NORMALS: no acute distress, patient oriented x3 and alert HENMT: COMMON NORMALS: normocephalic HEAD & SCALP: normocephalic Eye: COMMON NORMALS: Equal, round and reactive pupils present PUPIL: Yes Equal, round and reactive pupils present Lymph: LYMPHATIC: lymphedema Resp: COMMON NORMALS: normal respiratory effort, No retractions and No use of accessory muscles Cardio: COMMON NORMALS: regular rate RATE: regular rate PERIPHERAL PULSES: popliteal pulses present, posterior tibial pulses present, dorsalis pedis present and other Extremity: COMMON NORMALS: no calf tenderness; negative for no pedal edema GENERAL: Yes deformity Neuro: COMMON NORMALS: patient oriented x3 SENSORIUM/ORIENTATION: Yes alert SENSORY EXAM: Yes extremities MOTOR EXAM: 5/5 motor strength present throughout Psych: COMMON NORMALS: cooperative Skin: COMMON NORMALS: negative for no wounds WOUNDS: Yes wounds noted N AILS: discolored, dystrophic and yellow and thickened Data 07/11/24 05:30 07/11/24 05:30 Micro: Microbiology 07/11/24 05:34 Blood Culture - Preliminary Blood SPECIMEN COLLECTED 07/11/24 05:30 Blood Culture - Preliminary Blood SPECIMEN COLLECTED A&P Assessment and plan (1) Diabetes mellitus type 2 with complications, uncontrolled: (2) Gangrene of toe of right foot: PROCEDURE: Full thickness wound debridement Location: Right fifth toe Local Anesthesia: none due to neuropathy Consent: Verbal Details: Full thickness sharp debridement of the wound was performed using sterile dermal curette. The wound was debrided of hyperkeratotic rim and devitalized and fibrotic tissue down to bone, being the deepest level of debridement. Predebridement measurements: 1.5 cm x 1.2 cm x 0.5 cm Postdebridement measurements: 1.8 cm x 1.5 cm x 0.5 cm Hemostasis: Pressure Irrigation: sterile saline Dressing: Betadine wet-to-dry Estimated Blood Loss: minimal Offloading: Nonweightbearing heel touch only for transfers to the right lower extremity Plan 54-year-old uncontrolled diabetic male, current everyday smoker presents with gangrene of the right fifth toe. Patient placed n.p.o. in preparation for amputation of right fifth toe for source control of infection of the right foot secondary to gangrene. Likely be left open for delayed closure once soft tissue is viable for closure Anticipating surgery this afternoon Bedside debridement performed in the emergency department with postdebridement wound culture taken and sent to microbiology for Gram stain, culture and sensitivity Dressing right foot Betadine wet-to-dry Podiatry will follow Coding Level of Care Code Acute Code for Chg Fwd Diagnoses Diabetes mellitus type 2 with complications, uncontrolled E11.8; E11.65 Gangrene of toe of right foot I96 Comment Wound debridement CPT 77638
[2024-07-11 08:37] LABS: Lactic Acid level (Lactate) 1.4 mmol/L (0.5-2.2)
[2024-07-11] MEDS: metroNIDAZOLE IV 500 MG/100 ML PREMIX 100 MG IV ×2 (08:39→16:07)
[2024-07-11 08:43] LABS: Ketone (Acetest) Serum Negative (Negative)
[2024-07-11] MEDS: ciprofloxacin 400 MG/200 ML PREMIX 200 MG IV ×2 (09:53→20:34)
--- NOTE | 2024-07-11 10:22 | ANES.PREANE2 ---
Pre-Anesthetic Assessment Height/Weight: Height 5 ft 9 in Weight 176 lb Temp Pulse Resp BP Pulse Ox O2 Del Method O2 Flow Rate 97.9 F 97 17 124/75 98 Room Air 1 07/11/24 05:11 07/11/24 08:43 07/11/24 08:43 07/11/24 08:43 07/11/24 08:43 07/11/24 05:16 07/11/24 08:43 Operation Date: 07/11/24 12:00 Proposed Procedures p right fifth toe amputation(Right) - Lester Fall DPM Anesthetic Plan Other: Patient seen in the ER with abdominal pain and osteomyelitis/gangrene of right fifth toe Uncontrolled diabetic, A1c 12.3 today Documented angioedema seen in the ER today. Swollen lips. Mouth and uvula are spared. Patient was given Benadryl and Solu-Medrol Patient does have a history of hypertension and does take lisinopril, last dose on Tuesday MARKO Labs 07/31 reviewed and assessable for procedure. BS 247 Plan for MAC anesthetic with local via surgeon Medications/Allergies Home Medications Medication Instructions Recorded Confirmed Last Taken Type albuterol sulfate 90 mcg/actuation 2 inh inhalation Q4H PRN shortness 09/22/23 07/11/24 Unknown Rx aerosol inhaler (Ventolin HFA) of breath or wheezing 30 days #6.7 grams aspirin 81 mg tablet,delayed 81 mg PO DAILY 30 days #30 tabs 09/22/23 07/11/24 Unknown Rx release (Adult Low Dose Aspirin) fluticasone 250 mcg-salmeterol 50 1 inh inhalation BID 30 days #1 ea 09/22/23 07/11/24 Unknown Rx mcg/dose blistr powdr for inhalation (Advair Diskus) citalopram 20 mg tablet 20 mg PO DAILY 30 days #30 tabs 06/13/24 07/11/24 Unknown Rx dulaglutide 1.5 mg/0.5 mL 1.5 mg (0.5 mL) SUBCUT .weekly 30 06/13/24 07/11/24 Unknown Rx subcutaneous pen injector days #4 ea (Trulicity) insulin degludec 100 unit/mL (3 70 unit (0.7 mL) SUBCUT DAILY 30 06/13/24 07/11/24 Unknown Rx mL) subcutaneous pen (Tresiba days #15 mL FlexTouch U-100 insulin) lisinopril 2.5 mg tablet 2.5 mg PO DAILY 30 days #30 tabs 06/13/24 07/11/24 Unknown Rx empagliflozin 25 mg tablet 25 mg PO DAILY 07/11/24 07/11/24 Unknown History (Jardiance) Allergies Allergy/AdvReac Type Severity Reaction Status Date / Time gabapentin Allergy Unknown Verified 07/11/24 05:16 Penicillins Allergy Unknown Verified 07/11/24 05:16 Current Medications Generic Name Dose Route Start Last Admin Trade Name Donna PRN Reason Stop Dose Admin Metronidazole 500 mg in 100 mls @ 100 mls/hr 07/11/24 08:15 07/11/24 09:56 Flagyl Iv IV Infused Q8H GUIDO Infusion Protocol Ciprofloxacin/Dextrose 400 mg in 200 mls @ 200 mls/hr 07/11/24 08:30 07/11/24 09:53 Cipro IV 200 mls/hr Q12H GUIDO Administration Protocol [facility] Anesthesia Medical History (Updated 07/11/24 @ 07:50 by Lester Fall DPM) Tobacco abuse disorder Diabetic neuropathy Diabetic foot ulcer Dependence on nocturnal oxygen therapy History of [place] (myocardial infarction) On supplemental oxygen by nasal cannula Enrolled in chronic care management Noncompliance Chronic obstructive pulmonary disease, unspecified Diabetes mellitus type 2 with complications, uncontrolled PVD (peripheral vascular disease) MARKO (obstructive sleep apnea) unable to tolerate Cpap due to claustrophobia Essential (primary) hypertension Hyperlipidemia, acquired History of TIA (transient ischemic attack) saw neurology after his TIA/stroke. Surgical History H/O right inguinal hernia repair Family History Other Diabetes Heart disease Stroke Social History (Updated 06/13/24 @ 20:00 by Junior Grey NP) Smoking and tobacco/nicotine status: current every day tobacco/nicotine user cigarettes [ Other cigarette details: 35 pack year history] Second hand smoke exposure: Yes Alcohol intake: never Substance/Drug Use: never Adopted: No Caregiver/support person: No Lives independently: Yes Household members: none Marital status: Single service: No Current occupational status: disabled Do you think of yourself as: Straight/Heterosexual Current gender identity: Male Data Anesthesia 07/11/24 05:30 07/11/24 05:30 Short CBC 07/11/24 Range/Units 05:30 WBC 10.92 (3.29-11.43) 10^3/uL Hgb 15.30 (11.27-16.99) g/dL Hct 45.4 (37-53) % MCV 89.7 (82-101) fl Plt Count 328 (157-399) 10^3/cmm Neut % (Auto) 84.4 % Neut # (Auto) 9.22 H (1.8-7.7) 10^3/uL BMP 07/11/24 05:30 Sodium 140 Potassium 3.7 Chloride 99 Carbon Dioxide 24 BUN 7 Creatinine 0.5 L Glucose 247 H Calcium 8.9 Liver Function 07/11/24 Range/Units 05:30 Total Bilirubin 0.7 (0.15-1.2) mg/dL AST 11 (0-40) U/L ALT 9 (0-41) U/L Alkaline Phosphatase 98 (40-130) U/L Albumin 3.8 (3.5-5.2) g/dL COVID Results 07/11/24 05:30 Coronavirus (PCR) Negative Coags 07/11/24 05:30 C-Reactive Protein 5.6 H Microbiology 07/11/24 05:34 Blood Culture - Preliminary Blood SPECIMEN COLLECTED 07/11/24 05:30 Blood Culture - Preliminary Blood SPECIMEN COLLECTED Cardiac Studies: No Data to Display
--- NOTE | 2024-07-11 10:34 | P.HP_ITS ---
Documented by User: Danilo Hdz 07/11/24 11:17 Providers/Chief Complaint 2 Admitting Physician: Lion Cunningham MD Primary Care Provider: Junior Grey Chief Complaint: abd pain History of Present Illness Brandan Lima is a 54 y.o. male who presented to the ED with nausea and vomiting, toe gangrene, and lip angioedema. He has a PMHx of severe uncontrolled T2DM, COPD, LA, stroke, MARKO, HTN, and HLD. He admits to poor medication compliance. He states his current illness began about 3 days ago. He has had nonbloody, nonbilious emesis numerous times over the past few days. He describes its appearance as light brown with a few chunks. He initially had constipation which transitioned to diarrhea. His appetite has been suppressed and his oral intake has been very minimal. He denies abdominal pain. Review of Systems 2 Const: Reports: change in appetite; Denies: fever(s) or chills Eyes: Reports: blurry vision and floaters ENMT: Reports: swelling of lips/tongue Card: Denies: chest pain, palpitations or swelling of feet/ankles Resp: Denies: productive cough GI: Reports: nausea, vomiting, diarrhea and constipation; Denies: hematemesis : Denies: flank pain or hematuria Musc: Reports: other (Gangrene of Right 5th toe) Skin/Breast: Denies: rash Neuro: Reports: other (Some decreased strength and abnormal coordination of left-sided extremities); Denies: headache(s) Gerson/Lymph: Denies: easy bruising All/Imm: Reports: tongue swelling Medications/Allergies Home Medications Medication Instructions Recorded Confirmed Last Taken Type albuterol sulfate 90 mcg/actuation 2 inh inhalation Q4H PRN shortness 09/22/23 07/11/24 Unknown Rx aerosol inhaler (Ventolin HFA) of breath or wheezing 30 days #6.7 grams aspirin 81 mg tablet,delayed 81 mg PO DAILY 30 days #30 tabs 09/22/23 07/11/24 Unknown Rx release (Adult Low Dose Aspirin) fluticasone 250 mcg-salmeterol 50 1 inh inhalation BID 30 days #1 ea 09/22/23 07/11/24 Unknown Rx mcg/dose blistr powdr for inhalation (Advair Diskus) citalopram 20 mg tablet 20 mg PO DAILY 30 days #30 tabs 06/13/24 07/11/24 Unknown Rx dulaglutide 1.5 mg/0.5 mL 1.5 mg (0.5 mL) SUBCUT .weekly 30 06/13/24 07/11/24 Unknown Rx subcutaneous pen injector days #4 ea (Trulicity) insulin degludec 100 unit/mL (3 70 unit (0.7 mL) SUBCUT DAILY 30 06/13/24 07/11/24 Unknown Rx mL) subcutaneous pen (Tresiba days #15 mL FlexTouch U-100 insulin) lisinopril 2.5 mg tablet 2.5 mg PO DAILY 30 days #30 tabs 06/13/24 07/11/24 Unknown Rx empagliflozin 25 mg tablet 25 mg PO DAILY 07/11/24 07/11/24 Unknown History (Jardiance) Allergies Allergy/AdvReac Type Severity Reaction Status Date / Time gabapentin Allergy Unknown Verified 07/11/24 05:16 Penicillins Allergy Unknown Verified 07/11/24 05:16 PFSH Acute 2 PFSH: Medical History Tobacco abuse disorder Diabetic neuropathy Diabetic foot ulcer Dependence on nocturnal oxygen therapy History of LA (myocardial infarction) On supplemental oxygen by nasal cannula Enrolled in chronic care management Noncompliance Chronic obstructive pulmonary disease, unspecified Diabetes mellitus type 2 with complications, uncontrolled PVD (peripheral vascular disease) MARKO (obstructive sleep apnea) unable to tolerate Cpap due to claustrophobia Essential (primary) hypertension Hyperlipidemia, acquired History of TIA (transient ischemic attack) saw neurology after his TIA/stroke. Surgical History H/O right inguinal hernia repair Family History Other Diabetes Heart disease Stroke Social History Smoking and tobacco/nicotine status: current every day tobacco/nicotine user cigarettes [ Other cigarette details: 35 pack year history] Second hand smoke exposure: Yes Alcohol intake: never Substance/Drug Use: never Adopted: No Caregiver/support person: No Lives independently: Yes Household members: none Marital status: Single service: No Current occupational status: disabled Do you think of yourself as: Straight/Heterosexual Current gender identity: Male Vitals/I&O/Wt Last Vital Signs Temp 97.9 F 07/11/24 05:11 Pulse 97 07/11/24 08:43 Resp 17 07/11/24 08:43 BP 124/75 07/11/24 08:43 Pulse Ox 98 07/11/24 08:43 O2 Del Method Room Air 07/11/24 05:16 O2 Flow Rate 1 07/11/24 08:43 07/10/24 07/11/24 07/11/24 22:59 06:59 14:59 Intake Total 500 / 500 200 / 200 Balance 500 / 500 200 / 200 Weight last 48 hrs Weight 176 lb Physical Exam 2 Narrative: General: Alert and oriented. No acute distress. Malodorous. HEENT: Atraumatic, normocephalic. No scleral icterus. EOM intact. Cardiovascular: Regular rate and rhythm. No murmur. Pulmonary: Scattered faint end expiratory wheezes. Abdomen: Soft, nondistended. Tenderness of RUQ. Extremities: No edema. No cyanosis. Dressing in place over distal right foot s/p debridement. Psych: Appropriate mood and affect. Conversational. Data 07/11/24 05:30 07/11/24 05:30 Micro: Microbiology 07/11/24 05:34 Blood Culture - Preliminary Blood SPECIMEN COLLECTED 07/11/24 05:30 Blood Culture - Preliminary Blood SPECIMEN COLLECTED A&P Assessment and plan (1) Nausea & vomitin day history of nausea and vomiting. Nonbloody, nonbilious. Oral intake has been minimal. No significant electrolyte derangements at this time. Lipase not elevated. Gallbladder US showed cholelithiasis and some dilation of common bile duct, but no obvious cholecystitis. LFTs within normal limits. (2) Diabetic wet gangrene of the foot: Wet gangrene of right fifth toe. No obvious surrounding cellulitis or signs of ascending infection. Currently managed by podiatry. Underwent debridement today. Plan for surgical amputation of digit later today. NPO. (3) Diabetes mellitus type 2 with complications, uncontrolled: A1c 12.3. Has established peripheral neuropathy. Carbohydrate controlled diet. Sliding scale insulin. (4) Chronic obstructive pulmonary disease, unspecified: Currently on 1L via NC. Has inhalers at home but is noncompliant with using them. Ordered DuoNebs PRN. Qualifiers: COPD type: unspecified COPD Qualified Code(s): J44.9 - Chronic obstructive pulmonary disease, unspecified (5) Angioedema of lips: Not associated with swelling of the throat or tongue. Patient is on lisinopril at home. Was given Benadryl, Solu-Medrol, and Tylenol. Monitor for improvement. Qualifiers: Encounter type: initial encounter Qualified Code(s): T78.3XXA - Angioneurotic edema, initial encounter Plan Will begin DVT prophylaxis after surgery. Coding Level of Care Code 70041 Diagnoses Nausea & vomiting R11.2 Diabetic wet gangrene of the foot E11.52 Diabetes mellitus type 2 with complications, uncontrolled E11.8; E11.65 Chronic obstructive pulmonary disease, unspecified COPD type J44.9 COPD type: unspecified COPD Angioedema of lips T78.3XXA Encounter type: initial encounter Time Spent (min) 68 Documented by User: Lion Cunningham MD 07/11/24 11:29 Providers/Chief Complaint 2 Chief Complaint: abd pain History of Present Illness Brandan Lima is a 54 y.o. male who presented to the ED with nausea and vomiting, toe gangrene, and lip angioedema. He has a PMHx of severe uncontrolled T2DM, COPD, LA, stroke, MARKO, HTN, and HLD. He admits to poor medication compliance. He states his current illness began about 3 days ago. He has had nonbloody, nonbilious emesis numerous times over the past few days. He describes its appearance as light brown with a few chunks. He initially had constipation which transitioned to diarrhea. His appetite has been suppressed and his oral intake has been very minimal. He denies abdominal pain currently but apparently had some when he came into the ER. He reports had some lip swelling, noticed by the ER doc, and only got that at the ER. He has had this intermittently in the past. He has not been told why he has it. He reports no difficulty breathing with it, tongue swelling, or rash. Medications/Allergies Home Medications Medication Instructions Recorded Confirmed Last Taken Type albuterol sulfate 90 mcg/actuation 2 inh inhalation Q4H PRN shortness 09/22/23 07/11/24 Unknown Rx aerosol inhaler (Ventolin HFA) of breath or wheezing 30 days #6.7 grams aspirin 81 mg tablet,delayed 81 mg PO DAILY 30 days #30 tabs 09/22/23 07/11/24 Unknown Rx release (Adult Low Dose Aspirin) fluticasone 250 mcg-salmeterol 50 1 inh inhalation BID 30 days #1 ea 09/22/23 07/11/24 Unknown Rx mcg/dose blistr powdr for inhalation (Advair Diskus) citalopram 20 mg tablet 20 mg PO DAILY 30 days #30 tabs 06/13/24 07/11/24 Unknown Rx dulaglutide 1.5 mg/0.5 mL 1.5 mg (0.5 mL) SUBCUT .weekly 30 06/13/24 07/11/24 Unknown Rx subcutaneous pen injector days #4 ea (Trulicity) insulin degludec 100 unit/mL (3 70 unit (0.7 mL) SUBCUT DAILY 30 06/13/24 07/11/24 Unknown Rx mL) subcutaneous pen (Tresiba days #15 mL FlexTouch U-100 insulin) lisinopril 2.5 mg tablet 2.5 mg PO DAILY 30 days #30 tabs 06/13/24 07/11/24 Unknown Rx empagliflozin 25 mg tablet 25 mg PO DAILY 07/11/24 07/11/24 Unknown History (Jardiance) Allergies Allergy/AdvReac Type Severity Reaction Status Date / Time gabapentin Allergy Unknown Verified 07/11/24 05:16 Penicillins Allergy Unknown Verified 07/11/24 05:16 PFSH Acute 2 PFSH: Medical History Tobacco abuse disorder Diabetic neuropathy Diabetic foot ulcer Dependence on nocturnal oxygen therapy History of LA (myocardial infarction) On supplemental oxygen by nasal cannula Enrolled in chronic care management Noncompliance Chronic obstructive pulmonary disease, unspecified Diabetes mellitus type 2 with complications, uncontrolled PVD (peripheral vascular disease) MARKO (obstructive sleep apnea) unable to tolerate Cpap due to claustrophobia Essential (primary) hypertension Hyperlipidemia, acquired History of TIA (transient ischemic attack) saw neurology after his TIA/stroke. Surgical History H/O right inguinal hernia repair Family History Other Diabetes Heart disease Stroke Social History Smoking and tobacco/nicotine status: current every day tobacco/nicotine user cigarettes [ Other cigarette details: 35 pack year history] Second hand smoke exposure: Yes Alcohol intake: never Substance/Drug Use: never Adopted: No Caregiver/support person: No Lives independently: Yes Household members: none Marital status: Single service: No Current occupational status: disabled Do you think of yourself as: Straight/Heterosexual Current gender identity: Male Physical Exam 2 Narrative: General: Alert and oriented. No acute distress. Malodorous. HEENT: Atraumatic, normocephalic. No scleral icterus. EOM intact. Lip swelling is noted. No tongue swelling. No wheezing or rash. Cardiovascular: Regular rate and rhythm. No murmur. Pulmonary: Clear with diminished breath sounds at the bases. Abdomen: Soft, nondistended. Tenderness of RUQ. Extremities: No edema. No cyanosis. Dressing in place over distal right foot s/p debridement. Psych: Appropriate mood and affect. Conversational. Data 07/11/24 05:30 07/11/24 05:30 Other Labs: LFTs normal CRP normal COVID, influenza, RSV negative Serum ketones negative Lipase normal Toe x-ray with some demineralization Gallbladder ultrasound with cholelithiasis EKG is ordered and pending A&P Assessment and plan (1) Nausea & vomitin day history of nausea and vomiting. Nonbloody, nonbilious. Oral intake has been minimal. No significant electrolyte derangements at this time. Lipase not elevated. Gallbladder US showed cholelithiasis and some dilation of common bile duct, but no obvious cholecystitis. LFTs within normal limits. Abdominal pain has gone away. Does not currently feel nauseated. Surgery consult pending Currently n.p.o. for surgery on foot Cipro, Flagyl initiated (2) Diabetic wet gangrene of the foot: Wet gangrene of right fifth toe. No obvious surrounding cellulitis or signs of ascending infection. Currently managed by podiatry. Underwent debridement today. Plan for surgical amputation of digit later today. NPO. Andreea Beltrán initiated Add vancomycin Podiatry consult Surgery as above, appreciate podiatry consult. They will obtain appropriate tissue culture Patient does not have a fever, does not appear septic, blood cultures were done and antibiotics were already started. Will certainly do them should he become febrile. (3) Diabetes mellitus type 2 with complications, uncontrolled: A1c 12.3. Has established peripheral neuropathy. Carbohydrate controlled diet. Sliding scale insulin. Add long-acting insulin back when he becomes able to eat (4) Chronic obstructive pulmonary disease, unspecified: Qualifiers: COPD type: unspecified COPD Qualified Code(s): J44.9 - Chronic obstructive pulmonary disease, unspecified (5) Angioedema of lips: Not associated with swelling of the throat or tongue. Patient is on lisinopril at home. Was given Benadryl, Solu-Medrol, and Tylenol. Monitor for improvement. Continue Solu-Medrol 60 mg IV every 8 hours. Continue Benadryl IV Add Singulair at night Pepcid IV x 1 Monitor for improvement. Bedside monitor, intermediate care Qualifiers: Encounter type: initial encounter Qualified Code(s): T78.3XXA - Angioneurotic edema, initial encounter Attestations 2 Medical Necessity Statement*: Will need greater than 2 midnight stay for evaluation of cholelithiasis, vomiting, angioedema, gangrene Diagnoses Nausea & vomiting R11.2 Diabetic wet gangrene of the foot E11.52 Diabetes mellitus type 2 with complications, uncontrolled E11.8; E11.65 Chronic obstructive pulmonary disease, unspecified COPD type J44.9 COPD type: unspecified COPD Angioedema of lips T78.3XXA Encounter type: initial encounter Time Spent (min) 68
--- NOTE | 2024-07-11 11:29 | PHA.VACGOAL ---
Vancomycin Goal - Goal Vancomycin Goal:: 15-20 mg/L Vancomycin Indication:: Other (GANGRENE) - Therapy Day of therpy:: Day []of [] . Actual body weight (kg): 176 lb - Data Labs: WBC 10.92 10^3/uL (3.29-11.43) 07/11/24 05:30 RBC 5.06 10^6/uL (3.85-5.65) 07/11/24 05:30 Hgb 15.30 g/dL (11.27-16.99) 07/11/24 05:30 Hct 45.4 % (37-53) 07/11/24 05:30 MCV 89.7 fl (82-101) 07/11/24 05:30 MCH 30.2 pg (27-33) 07/11/24 05:30 MCHC 33.7 g/dL (30-55) 07/11/24 05:30 RDW 12.4 % (12.1-15.1) 07/11/24 05:30 Sodium 140 mmol/L (136-145) 07/11/24 05:30 Potassium 3.7 mmol/L (3.5-5.1) 07/11/24 05:30 Chloride 99 mmol/L (98-107) 07/11/24 05:30 Carbon Dioxide 24 mmol/L (22-29) 07/11/24 05:30 Anion Gap 20.7 (5-19) H 07/11/24 05:30 BUN 7 mg/dL (6-20) 07/11/24 05:30 Creatinine 0.5 mg/dL (0.7-1.2) L 07/11/24 05:30 GFR Calculation 173.3 mL/min (90-130) H 07/11/24 05:30 Last dialysis session:: N/A Treatment plan:: new consult Regimen:: LOADING DOSE OF 2g MAINTENANCE DOSE OF 1000mg Q8H Follow up:: WILL CONTINUE TO MONITOR AND FOLLOW UP DAILY
[2024-07-11] MEDS: sodium chloride 0.9% 1,000 ML 75 ML IV (11:41)
[2024-07-11 11:59] LABS: Bilirubin Urine Negative (Negative); Blood Urine Negative (Negative); Glucose Urine UA 3+ (Normal); Ketones Urine 3+ (Negative); Leukocyte Esterase Urine Negative (Negative); Nitrate Urine Negative (Negative); Protein Urine Negative (Negative); Urine Appearance Clear (CLEAR); Urine Color Yellow (Yellow); Urobilinogen Urine 0.2 mg/dL (Negative); pH Urine 5.5 (5-7)
--- NOTE | 2024-07-11 12:04 | PC.NURSE ---
pt taken from the unit in stable condition at 1100.
[2024-07-11 12:05] LABS: Bacteria Urine None Seen /hpf; Hyaline Casts Urine 0-4 /lpf; RBC Urine 0-2 /hpf (0-2); Squamous Epithelial Cell Urine 0-5 /hpf (0-5); WBC Urine 0-5 /hpf (0-5)
--- NOTE | 2024-07-11 12:11 | W.PM.OPSUD ---
Surgery/Procedure H&P Update DATE OF PROCEDURE: July 11, 2024 DATE H&P PERFORMED: 07/11/24 H&P UPDATE INFORMATION: I have reviewed H&P completed within last 30 days, I have examined patient prior to procedure, No changes to prior documentation and H&P is in [facility] EMR on date indicated PLANNED PROCEDURE: Operation Date: 07/11/24 12:00 Proposed Procedures p right fifth toe amputation(Right) - Lester Fall DPM
[2024-07-11] MEDS: vancomycin 2,000 MG/400 ML PIGGYBACK 200 MG IV (12:25)
--- NOTE | 2024-07-11 12:39 | PM.OP ---
Operative Report Date of procedure: July 11, 2024 Pre-op diagnosis: Gangrene right fifth toe Wound exposed to fat layer right fourth toe Post-op diagnosis: Gangrene right fifth toe Wound exposed to fat layer right fourth toe Procedure done: Right fifth toe amputation. CPT code 56865 Debridement down to subcutaneous tissue right fourth toe. CPT code 46117 Implants: No implants Specimens removed/disposition: Cultures previously taken in the emergency department after wound debridement 07/31/2024 Pathology: Right fifth toe sent to pathology for permanent Surgeon: Lester Fall DPM Polymerization Oven Operator: Florencio Estimated blood loss: 5 6 minutes IV fluids: See intraoperative documentation Urine output: none Complications: None Findings: wet gangrene right fifth toe Brief History: Brandan Lima is a 54 year old male presents to the emergency department with several complaints, I was consulted for evaluation of gangrene of the right fifth toe and fourth webspace approximately 1 week in duration, of note patient also complains of abdominal pain and was found to have cholecystitis, he has angioedema, hypertension, peripheral vascular disease, uses oxygen at night. Patient has not been taking care of himself lives alone, moved here from [place] and his family lives in [place]. No food or water intake today, he last ate yesterday. Denies fever or chills. Complains of redness, drainage and malodor at the right foot. 54-year-old uncontrolled diabetic male, current everyday smoker presents with gangrene of the right fifth toe. Patient placed n.p.o. in preparation for amputation of right fifth toe for source control of infection of the right foot secondary to gangrene. Likely be left open for delayed closure once soft tissue is viable for closure Procedure: Sedation the patient was brought to the operating room and remained on the gurney in supine position. A timeout was performed. Anesthesia was then administered by the anesthesia service. Local anesthesia injected by myself consisting of 20 cc of 0.5% Marcaine plain in a right reverse Grossman block fashion. Well-padded pneumatic tourniquet applied to the right ankle. The right lower extremity was scrubbed, prepped and draped utilizing normal aseptic technique and ankle tourniquet inflated to 250 mmHg. Attention was directed to the right fifth toe and which demonstrated wet gangrene circumferentially around the base of the right fifth toe full-thickness incision was performed down to bone and the right fifth toe was sharply disarticulated through the right fifth metatarsal phalangeal joint and passed from the operative field to be sent to pathology for permanent. The incision was irrigated with saline solution and the head of the fifth metatarsal was visualized noted to be viable and surrounding soft tissue required further time for possible delayed closure after antibiotics parenterally over the next 2 to 3 days. Attention was directed to the lateral aspect of the right fourth toe where a wound exposed to subcutaneous tissue was sharply and excisionally debrided with pickups and a #15 blade of devitalized epidermis, dermis, subcutaneous tissue postdebridement wound measurements 1.3 cm x 1.8 cm x 0.3 cm. Wounds were dressed with saline wet-to-dry, with 4 x 4's, Kerlix and Coban. Tourniquet was deflated and a prompt hyperemic response is noted to the remaining digits of the right foot 1 through 4. Patient tolerated the procedure and anesthesia well and was transferred to the PACU with vital sign stable and vascular status intact. Following a period of postoperative monitoring he will be transferred back to the floor to continue empiric IV antibiotics will monitor for opportunity for delayed closure at the right fifth toe amputation site.
[2024-07-11 12:43] LABS: Add Urine Culture? No; Specific Gravity, Urine 1.041 (1.005-1.030)
--- NOTE | 2024-07-11 12:54 | ANES.PREANE2 ---
Pre-Anesthetic Assessment Height/Weight: Height 1.75 m Weight 79.832 kg Temp Pulse Resp BP Pulse Ox O2 Del Method O2 Flow Rate 97.2 F L 98 18 152/84 98 Room Air 1 07/11/24 11:21 07/11/24 11:21 07/11/24 11:21 07/11/24 11:21 07/11/24 11:21 07/11/24 11:21 07/11/24 08:43 Operation Date: 07/11/24 12:00 Proposed Procedures p right fifth toe amputation(Right) - Lester Fall DPM Familial anesthetic complications: none Was Beta Khoi taken within 24 hours: N/A Was Clonidine taken within 24 hours: N/A Last intake: Intake Last Liquid Date 07/10/24 Last Liquid Time 21:00 Last Solid Date 07/10/24 Last Solid Time 21:00 Social Tobacco and No alcohol 1 pack(s) per day 35 pack years Exam alert, oriented x 3, clear to auscultation bilaterally and regular rate & rhythm Airway Submandibular: within normal limits Cervical ROM: within normal limits Mallampati: Class II Dentition: false Comments: Comments: poor dentition Pulmonary Chronic Obstructive Pulmonary Disease and Sleep Apnea O2 at night CV/HEM Coronary Artery Disease and Myocardial Infarction None reported Hepatic None reported GI None reported Metabolic Diabetes Mellitus [facility] [place] Lower Back Pain Neuropsych Anxiety, Cerebrovascular Accident, Neuropathy and Transient Ischemic Attack brain deficits and left sided nerve pain Anesthetic Plan ASA status: 3 Anesthesia: MAC Risk of > 500 ml blood loss (7ml/kg in children): No Medications/Allergies Home Medications Medication Instructions Recorded Confirmed Last Taken Type albuterol sulfate 90 mcg/actuation 2 inh inhalation Q4H PRN shortness 09/22/23 07/11/24 Unknown Rx aerosol inhaler (Ventolin HFA) of breath or wheezing 30 days #6.7 grams aspirin 81 mg tablet,delayed 81 mg PO DAILY 30 days #30 tabs 09/22/23 07/11/24 Unknown Rx release (Adult Low Dose Aspirin) fluticasone 250 mcg-salmeterol 50 1 inh inhalation BID 30 days #1 ea 09/22/23 07/11/24 Unknown Rx mcg/dose blistr powdr for inhalation (Advair Diskus) citalopram 20 mg tablet 20 mg PO DAILY 30 days #30 tabs 06/13/24 07/11/24 Unknown Rx dulaglutide 1.5 mg/0.5 mL 1.5 mg (0.5 mL) SUBCUT .weekly 30 06/13/24 07/11/24 Unknown Rx subcutaneous pen injector days #4 ea (Trulicity) insulin degludec 100 unit/mL (3 70 unit (0.7 mL) SUBCUT DAILY 30 06/13/24 07/11/24 Unknown Rx mL) subcutaneous pen (Tresiba days #15 mL FlexTouch U-100 insulin) lisinopril 2.5 mg tablet 2.5 mg PO DAILY 30 days #30 tabs 06/13/24 07/11/24 Unknown Rx empagliflozin 25 mg tablet 25 mg PO DAILY 07/11/24 07/11/24 Unknown History (Jardiance) Allergies Allergy/AdvReac Type Severity Reaction Status Date / Time gabapentin Allergy Unknown Verified 07/11/24 05:16 Penicillins Allergy Unknown Verified 07/11/24 05:16 Current Medications Generic Name Dose Route Start Last Admin Trade Name Freq PRN Reason Stop Dose Admin Metronidazole 500 mg in 100 mls @ 100 mls/hr 07/11/24 08:15 07/11/24 09:56 Flagyl Iv IV Infused Q8H GUIDO Infusion Protocol Ciprofloxacin/Dextrose 400 mg in 200 mls @ 200 mls/hr 07/11/24 08:30 07/11/24 09:53 Cipro IV 200 mls/hr Q12H GUIDO Administration Protocol Sodium Chloride 1,000 mls @ 75 mls/hr 07/11/24 11:15 07/11/24 11:41 Sodium Chloride 0.9% IV 75 mls/hr .[id number] GUIDO Administration Vancomycin HCl 2,000 mg in 400 mls @ 200 mls/hr 07/11/24 11:30 07/11/24 12:25 Vancocin IV 07/11/24 13:29 200 mls/hr ONCE ONE Administration PFS Anesthesia Medical History Tobacco abuse disorder Diabetic neuropathy Diabetic foot ulcer Dependence on nocturnal oxygen therapy History of [place] (myocardial infarction) On supplemental oxygen by nasal cannula Enrolled in chronic care management Noncompliance Chronic obstructive pulmonary disease, unspecified Diabetes mellitus type 2 with complications, uncontrolled PVD (peripheral vascular disease) MARKO (obstructive sleep apnea) unable to tolerate Cpap due to claustrophobia Essential (primary) hypertension Hyperlipidemia, acquired History of TIA (transient ischemic attack) saw neurology after his TIA/stroke. Surgical History H/O right inguinal hernia repair Family History Other Diabetes Heart disease Stroke Social History Smoking and tobacco/nicotine status: current every day tobacco/nicotine user cigarettes [ Other cigarette details: 35 pack year history] Second hand smoke exposure: Yes Alcohol intake: never Substance/Drug Use: never Adopted: No Caregiver/support person: No Lives independently: Yes Household members: none Marital status: Single service: No Current occupational status: disabled Do you think of yourself as: Straight/Heterosexual Current gender identity: Male Data Anesthesia 07/11/24 05:30 07/11/24 05:30 Short CBC 07/11/24 Range/Units 05:30 WBC 10.92 (3.29-11.43) 10^3/uL Hgb 15.30 (11.27-16.99) g/dL Hct 45.4 (37-53) % MCV 89.7 (82-101) fl Plt Count 328 (157-399) 10^3/cmm Neut % (Auto) 84.4 % Neut # (Auto) 9.22 H (1.8-7.7) 10^3/uL BMP 07/11/24 05:30 Sodium 140 Potassium 3.7 Chloride 99 Carbon Dioxide 24 BUN 7 Creatinine 0.5 L Glucose 247 H Calcium 8.9 Liver Function 07/11/24 Range/Units 05:30 Total Bilirubin 0.7 (0.15-1.2) mg/dL AST 11 (0-40) U/L ALT 9 (0-41) U/L Alkaline Phosphatase 98 (40-130) U/L Albumin 3.8 (3.5-5.2) g/dL Urine 07/11/24 Range/Units 11:05 Urine Color Yellow (Yellow) Urine Appearance Clear (CLEAR) Urine pH 5.5 (5-7) Ur Specific [place] 1.041 H (1.005-1.030) Urine Protein Negative (Negative) Urine Glucose (UA) 3+ H (Normal) Urine Ketones 3+ H (Negative) Urine Nitrate Negative (Negative) Urine Bilirubin Negative (Negative) Ur Leukocyte Esterase Negative (Negative) Urine RBC 0-2 (0-2) /hpf Urine WBC 0-5 (0-5) /hpf COVID Results 07/11/24 05:30 Coronavirus (PCR) Negative Coags 07/11/24 05:30 C-Reactive Protein 5.6 H Microbiology 07/11/24 05:34 Blood Culture - Preliminary Blood SPECIMEN COLLECTED 07/11/24 05:30 Blood Culture - Preliminary Blood SPECIMEN COLLECTED Cardiac Studies: No Data to Display
[2024-07-11] MEDS: BUPivacaine 0.5% INJ 30 mL INJECTION (13:10)
[2024-07-11 14:10] LABS: Glucose Point of Care 226 mg/dL (70-110)
--- NOTE | 2024-07-11 14:30 | ANE.PACU2 ---
Inpatient post-anesthesia follow up: Airway intact: Yes Vital signs: Temperature 97.4 F Pulse Rate 96 Respiratory Rate 17 Blood Pressure 140/70 Pulse Oximetry 96 Oxygen Delivery Me thod Room Air Oxygen Flow Rate 1 Fraction of Inspir ed Oxygen Hydration adequate: Yes Nausea and vomiting: No Pain level: 1 Mental status: Baseline
--- NOTE | 2024-07-11 14:39 | PC.NURSE ---
Patient transferred to CSU from surgery at 1435.
[2024-07-11] MEDS: methylPREDNISolone sod succ 125 mg/2 mL INJ 60 MG IVP ×2 (16:06→21:47)
--- NOTE | 2024-07-11 16:08 | ECG_ITS ---
[employer] Test Date: 2024-07-11 Pat Name: Brandan Lima Department: Room: 101 Gender: Male Surgical Supervisor: : 1970 Requested By: Mike Montenegro Order Number: [id number] Jean MD: Annalise Morales M.D. Measurements Intervals [place] Rate: 94 P: 66 WI: 165 QRS: 30 QRSD: 97 T: 65 QT: 364 QTc: 455 Interpretive Statements SINUS RHYTHM MINIMAL ST DEPRESSION [0.025+ mV ST DEPRESSION] INTERPRETATION BASED ON A DEFAULT AGE OF 40 YEARS No previous ECG available for comparison Electronically Signed On 07-11-2024 19:28:42 SOLAR PANEL INSTALLER by Annalise Morales M.D. [email or web address]
[2024-07-11] MEDS: insulin lispro 100 unit/1 mL SUBCUT ×2 (17:28→21:47)
[2024-07-11] MEDS: famotidine 20 mg/2 mL INJ 40 MG IVP (17:29)
[2024-07-11] MEDS: pantoprazole 40 mg SDV IVP (17:30)
[2024-07-11] MEDS: montelukast sodium 10 mg Tablet PO (17:30)
[2024-07-11 17:48] LABS: Glucose Point of Care 383 mg/dL (70-110)
[2024-07-11] MEDS: VANCOMYCIN ADD-Vantage 1,000 MG in 0.9% NaCl ADD-Vantage 250 ML 250 MG IV (20:34)
[2024-07-11 20:44] LABS: Glucose Point of Care 249 mg/dL (70-110)
[2024-07-12] VITALS (34 sets, daily range): BP systolic 125–198; BP diastolic 67–107; PULSE 58–93; RESP 4–27; TEMP 36.1–37.2; O2SAT 93–99
[2024-07-12] MEDS: metroNIDAZOLE IV 500 MG/100 ML PREMIX 100 MG IV ×3 (00:05→20:28)
[2024-07-12 03:42] LABS: Basophils % 0.1 %; Hematocrit 41.7 % (37-53); Lymphocytes # 0.9 10^3/uL (0.8-4.8); Lymphocytes % 8.4 %; Mean Corpuscular HGB Conc 33.3 g/dL (30-55); Mean Corpuscular Volume 89.9 fl (82-101); Mean Platelet Volume 9.1 fL (7.4-10.4); Monocytes # 0.3 10^3/uL (0.2-0.9); Monocytes % 3.2 %; Neutrophils # 8.96 10^3/uL (1.8-7.7); Neutrophils % 87.8 %; Nucleated Red Blood Cells % 0 %; Platelet Count 325 10^3/cmm (157-399); Red Blood Count 4.64 10^6/uL (3.85-5.65); Red Cell Distribution Width 12.3 % (12.1-15.1); White Blood Count 10.21 10^3/uL (3.29-11.43)
[2024-07-12] MEDS: VANCOMYCIN ADD-Vantage 1,000 MG in 0.9% NaCl ADD-Vantage 250 ML 250 MG IV ×3 (03:52→20:28)
[2024-07-12 04:02] LABS: Alanine Aminotransferase 7 U/L (0-41); Albumin Level 3.3 g/dL (3.5-5.2); Alkaline Phosphatase 82 U/L (40-130); Anion Gap 14.3 (5-19); Aspartate Amino Transferase 10 U/L (0-40); Blood Urea Nitrogen 14 mg/dL (6-20); Calcium 8.3 mg/dL (8.5-10.5); Carbon Dioxide 25 mmol/L (22-29); Chloride 102 mmol/L (98-107); Creatinine Clr Calc Pharmacy 177.3502; Globulin 2.5 g/dL (1.3-4.6); Glomerular Filtration Rate 173.3 mL/min (90-130); Glucose 268 mg/dL (65-115); Magnesium 2.3 mg/dL (1.7-2.3); Osmolality Calculated 294 mOsm/kg (285-295); Potassium 4.3 mmol/L (3.5-5.1); Sodium 137 mmol/L (136-145); Total Bilirubin 0.4 mg/dL (0.15-1.2); Total Protein 5.8 g/dL (6.6-8.7)
[2024-07-12] MEDS: methylPREDNISolone sod succ 125 mg/2 mL INJ 60 MG IVP (05:37)
[2024-07-12 06:33] LABS: Glucose Point of Care 269 mg/dL (70-110)
--- NOTE | 2024-07-12 06:39 | P.PN_ITS ---
Subjective 2 Subjective: Patient seen bedside this morning, denies any acute events overnight. Denies any pain to the right foot. 1 day status post right fifth toe amputation at metatarsophalangeal joint secondary to wet gangrene and status postdebridement down to the fat layer right fourth toe. Patient is afebrile, no leukocytosis. Vitals/I&O/Wt Last Vital Signs Temp 98.4 F 07/12/24 04:00 Pulse 74 07/12/24 04:00 Resp 10 L 07/12/24 04:00 BP 130/71 07/12/24 04:00 Pulse Ox 97 07/12/24 04:00 O2 Del Method Room Air 07/12/24 04:00 O2 Flow Rate 1 07/11/24 08:43 07/11/24 07/11/24 07/12/24 14:59 22:59 06:59 Intake Total 200 / 200 990 / 1190 1650 / 2840 Output Total 5 / 5 500 / 505 800 / 1305 Balance 195 / 195 490 / 685 850 / 1535 Weight last 48 hrs Weight 175 lb 6 oz Weight 175 lb 6 oz Weight 176 lb Physical Exam 2 Narrative: VASCULAR: Pedal pulses palpable dorsalis pedis and posterior tibial arteries bilaterally, delayed capillary refill time right fifth toe. NEUROLOGICAL: Absent protective sensation at the bilateral foot, tested with [place] Nneka monofilament. DERMATOLOGICAL: Amputation site at right fifth toe has improved skin quality with decreased erythema, no purulent drainage and no proximal lymphangitic streaking, soft tissue appears more viable. Stable appearing wound at the lateral aspect of the right fourth toe without purulent drainage. Toenails 1, 2, 3, 4, 5 left and 1, 2, 3, 4 right foot are elongated, thickened and discolored with subungual debris. Lower extremity integument is atrophic with decreased texture and turgor, has thin shiny appearance. MUSCULOSKELETAL: No pain to palpation right foot secondary to neuropathy. Tailor's bunion bilaterally and fifth hammertoe digit bilaterally. Data 07/12/24 03:17 07/12/24 03:17 Micro: Microbiology 07/11/24 05:34 Blood Culture - Preliminary Blood NEGATIVE TO DATE 07/11/24 05:30 Blood Culture - Preliminary Blood NEGATIVE TO DATE 07/11/24 07:43 Gram Stain - Final Toe - Right Pinky A&P Assessment and plan (1) Diabetes mellitus type 2 with complications, uncontrolled: (2) Gangrene of toe of right foot: (3) Onychodystrophy: -Toenails 1-5 left foot and 1 through 4 right foot were debrided manually both in thickness and length manually with sterile nail nippers without incident. Plan 54-year-old uncontrolled diabetic male, current everyday smoker presents with gangrene of the right fifth toe. Improved soft tissue viability amputation site right foot, would benefit from further debridement and delayed closure. N.p.o. at midnight Scheduled for delayed closure right foot Tuesday07/13/2024 Dressing changes a.m. saline wet-to-dry Attestations 2 Medical Necessity Statement*: Requires continue IV antibiotics and delayed closure on the right foot Coding Level of Care Code Acute Code for Chg Fwd Diagnoses Diabetes mellitus type 2 with complications, uncontrolled E11.8; E11.65 Gangrene of toe of right foot I96 Onychodystrophy L60.3 Comment CPT code 24324
[2024-07-12] MEDS: citalopram 20 mg Tablet PO (09:01)
[2024-07-12] MEDS: aspirin 81 mg EC Tablet PO (09:01)
[2024-07-12] MEDS: heparin 5,000 unit/mL INJ 1 mL 5000 UNIT SUBCUT ×2 (09:01→20:31)
[2024-07-12] MEDS: ipratropium-albuterol 3 mL Neb INHALATION (09:01)
[2024-07-12] MEDS: budesonide 0.5 mg/2 mL Neb INHALATION (09:01)
--- NOTE | 2024-07-12 09:13 | P.PN_ITS ---
Documented by User: Danilo Hdz 07/12/24 09:48 Subjective 2 Subjective: Brandan Lima is a 54 y.o. male admitted with N/V, wet gangrene of right 5th toe, and lip angioedema. Today he feels better overall. His nausea and vomiting is improved. He denies recurrence of vomiting. He endorses only minimal abdominal discomfort. His lip swelling has also gone down. There is a dressing on his right foot where he underwent amputation of his gangrenous toe. He has been visited by both podiatry and general surgery. Medications: Reviewed: Yes Vitals/I&O/Wt Last Vital Signs Temp 98.4 F 07/12/24 08:00 Pulse 78 07/12/24 09:03 Resp 18 07/12/24 09:03 BP 125/67 07/12/24 08:00 Pulse Ox 97 07/12/24 09:03 O2 Del Method Room Air 07/12/24 09:03 O2 Flow Rate 1 07/11/24 08:43 07/11/24 07/12/24 07/12/24 22:59 06:59 14:59 Intake Total 990 / 1190 1650 / 2840 Output Total 500 / 505 800 / 1305 425 / 425 Balance 490 / 685 850 / 1535 -425 / -425 Weight last 48 hrs Weight 175 lb 6 oz Weight 175 lb 6 oz Weight 176 lb Physical Exam 2 Narrative: General: Alert and oriented. No acute distress. HEENT: Atraumatic, normocephalic. Lip swelling notably reduced. No tongue swelling. No wheezing or rash. Cardiovascular: Regular rate and rhythm. No murmur. Pulmonary: Clear with diminished breath sounds at the bases. Abdomen: Soft, nondistended. Tenderness of RUQ. Extremities: No edema. No cyanosis. Dressing in place over distal right foot s/p right 5th toe amputation. Psych: Appropriate mood and affect. Conversational. Data 07/12/24 03:17 07/12/24 03:17 Micro: Microbiology 07/11/24 05:34 Blood Culture - Preliminary Blood NEGATIVE TO DATE 07/11/24 05:30 Blood Culture - Preliminary Blood NEGATIVE TO DATE 07/11/24 07:43 Gram Stain - Final Toe - Right Pinky A&P Assessment and plan (1) Nausea & vomiting: Presented with several days of nausea and vomiting. Nonbloody, nonbilious. No electrolyte derangements. Lipase not elevated. Gallbladder US showed cholelithiasis and some dilation of common bile duct. LFTs within normal limits. Not currently nauseated. Appreciate surgery consult. Anticipating cholecystectomy today. Currently n.p.o. for surgery Continue Cipro, Flagyl, Vanc (2) Diabetic wet gangrene of the foot: Wet gangrene of right fifth toe. No obvious surrounding cellulitis or signs of ascending infection. Podiatry consult appreciated 2 days s/p debridement 1 day 1/p surgical amputation of right fifth toe Continue Cipro, Flagyl, Vanc Blood cultures are negative to date Wound culture pending. Gram stain showed multiple organisms. Patient is afebrile, does not appear septic. Blood cultures pending. Antibiotics on board. (3) Diabetes mellitus type 2 with complications, uncontrolled: A1c 12.3. Has established complications including peripheral neuropathy and vascular disease. Sliding scale insulin. Carbohydrate controlled diet and long-acting insulin when not NPO. (4) Chronic obstructive pulmonary disease, unspecified: Currently not requiring supplemental oxygen. Has inhalers at home but is noncompliant with using them. Has orders for budesonide BID, montelukast QPM, and DuoNebs PRN. Qualifiers: COPD type: unspecified COPD Qualified Code(s): J44.9 - Chronic obstructive pulmonary disease, unspecified (5) Angioedema of lips: Not associated with swelling of the throat or tongue. Patient is on lisinopril at home. Has received Benadryl, Solu-Medrol, Singulair, Famotidine, and Tylenol. Significantly improved. Discontinue Solu-Medrol and Benadryl Serial visual exams. Bedside monitor, intermediate care Qualifiers: Encounter type: initial encounter Qualified Code(s): T78.3XXA - Angioneurotic edema, initial encounter Plan Will begin DVT prophylaxis after surgery. Coding Level of Care Code 54741 Diagnoses Nausea & vomiting R11.2 Diabetic wet gangrene of the foot E11.52 Diabetes mellitus type 2 with complications, uncontrolled E11.8; E11.65 Chronic obstructive pulmonary disease, unspecified COPD type J44.9 COPD type: unspecified COPD Angioedema of lips T78.3XXA Encounter type: initial encounter Time Spent (min) 23 Documented by User: Lion Cunningham MD 07/12/24 10:07 Data 07/12/24 03:17 07/12/24 03:17 A&P Assessment and plan (1) Nausea & vomiting: (2) Diabetic wet gangrene of the foot: Wet gangrene of right fifth toe. No obvious surrounding cellulitis or signs of ascending infection. Podiatry consult appreciated 2 days s/p debridement 1 day 1/p surgical amputation of right fifth toe Continue Cipro, Flagyl, Vanc Blood cultures are negative to date Wound culture pending. Gram stain showed multiple organisms. Patient is afebrile, does not appear septic. Blood cultures pending. Antibiotics on board. Podiatry arranging for closure today or tomorrow. (3) Diabetes mellitus type 2 with complications, uncontrolled: (4) Chronic obstructive pulmonary disease, unspecified: Qualifiers: COPD type: unspecified COPD Qualified Code(s): J44.9 - Chronic obstructive pulmonary disease, unspecified (5) Angioedema of lips: Qualifiers: Encounter type: initial encounter Qualified Code(s): T78.3XXA - Angioneurotic edema, initial encounter Attestations 2 Medical Necessity Statement*: Needs continued hospital stay for evaluation and surgery for gallstones, closure of amputation site, continued IV antibiotic Diagnoses Nausea & vomiting R11.2 Diabetic wet gangrene of the foot E11.52 Diabetes mellitus type 2 with complications, uncontrolled E11.8; E11.65 Chronic obstructive pulmonary disease, unspecified COPD type J44.9 COPD type: unspecified COPD Angioedema of lips T78.3XXA Encounter type: initial encounter Time Spent (min) 23
[2024-07-12] MEDS: ciprofloxacin 400 MG/200 ML PREMIX 200 MG IV ×2 (10:12→20:29)
[2024-07-12 11:41] LABS: Glucose Point of Care 265 mg/dL (70-110)
--- NOTE | 2024-07-12 15:36 | P.CONIM_ITS ---
Providers/Reason For Consult 2 Consulting Physician/Specialty*: Dr. Charles Dhillon, DO/General Surgery Reason for Consult*: Calculous cholecystitis Attending Physician: Lion Cunningham MD Primary Care Provider: Junior Grey History of Present Illness History of Present Illness Brandan Lima is a 54 year old male who presented to the hospital with a several week history of right upper quadrant pain, nausea and vomiting. Eating and palpation makes the pain worse. The pain radiates to his back. Nothing makes pain better. Imaging of the abdomen showed a very large gallstone without pericholecystic fluid or significant gallbladder wall thickening. He is having intractable pain. Denies any hematemesis, hematochezia and/or melena Review of Systems 2 General: Reports: 10 or more systems reviewed and unremarkable except in HPI and below Medications/Allergies Home Medications Medication Instructions Recorded Confirmed Last Taken Type albuterol sulfate 90 mcg/actuation 2 inh inhalation Q4H PRN shortness 09/22/23 07/11/24 Unknown Rx aerosol inhaler (Ventolin HFA) of breath or wheezing 30 days #6.7 grams aspirin 81 mg tablet,delayed 81 mg PO DAILY 30 days #30 tabs 09/22/23 07/11/24 Unknown Rx release (Adult Low Dose Aspirin) fluticasone 250 mcg-salmeterol 50 1 inh inhalation BID 30 days #1 ea 09/22/23 07/11/24 Unknown Rx mcg/dose blistr powdr for inhalation (Advair Diskus) citalopram 20 mg tablet 20 mg PO DAILY 30 days #30 tabs 06/13/24 07/11/24 Unknown Rx dulaglutide 1.5 mg/0.5 mL 1.5 mg (0.5 mL) SUBCUT .weekly 30 06/13/24 07/11/24 Unknown Rx subcutaneous pen injector days #4 ea (Trulicity) insulin degludec 100 unit/mL (3 70 unit (0.7 mL) SUBCUT DAILY 30 06/13/24 07/11/24 Unknown Rx mL) subcutaneous pen (Tresiba days #15 mL FlexTouch U-100 insulin) lisinopril 2.5 mg tablet 2.5 mg PO DAILY 30 days #30 tabs 06/13/24 07/11/24 Unknown Rx empagliflozin 25 mg tablet 25 mg PO DAILY 07/11/24 07/11/24 Unknown History (Jardiance) Allergies Allergy/AdvReac Type Severity Reaction Status Date / Time gabapentin Allergy Unknown Verified 07/11/24 05:16 Penicillins Allergy Unknown Verified 07/11/24 05:16 Current Medications Generic Name Dose Route Start Last Admin Trade Name Freq PRN Reason Stop Dose Admin Albuterol/Ipratropium 3 ml 07/11/24 11:10 07/12/24 09:01 Ipratropium-Albuterol 3 Ml Neb INHALATION 3 ml Q6H PRN Administration SHORTNESS OF BREATH Aspirin 81 mg 07/12/24 09:00 07/12/24 09:01 Aspirin 81 Mg Ec Tablet PO 81 mg DAILY GUIDO Administration Budesonide 0.5 mg 07/11/24 20:00 07/12/24 09:01 Budesonide 0.5 Mg/2 Ml Neb INHALATION 0.5 mg BID.RESPIRATORY GUIDO Administration Citalopram Hydrobromide 20 mg 07/12/24 09:00 07/12/24 09:01 Citalopram 20 Mg Tablet PO 20 mg DAILY GUIDO Administration Heparin Sodium (Porcine) 5,000 unit 07/12/24 08:00 07/12/24 09:01 Heparin 5,000 Unit/Ml Inj 1 Ml SUBCUT 5,000 unit Q12H GUIDO Administration Metronidazole 500 mg in 100 mls @ 100 mls/hr 07/11/24 08:15 07/12/24 11:23 Flagyl Iv IV Infused Q8H GUIDO Infusion Protocol Ciprofloxacin/Dextrose 400 mg in 200 mls @ 200 mls/hr 07/11/24 08:30 07/12/24 11:39 Cipro IV Infused Q12H GUIDO Infusion Protocol Sodium Chloride 1,000 mls @ 75 mls/hr 07/11/24 11:15 07/12/24 02:12 Sodium Chloride 0.9% IV Infused .[id number] GUIDO Infusion Vancomycin HCl 1,000 mg/ 250 mls @ 250 mls/hr 07/11/24 20:00 07/12/24 14:29 Sodium Chloride IV Infused Q8H GUIDO Infusion Insulin Human Lispro 0 unit 07/11/24 12:00 07/12/24 11:43 Insulin Lispro 100 Unit/1 Ml SUBCUT Not Given WM&BEDTIME GUIDO Protocol Montelukast Sodium 10 mg 07/11/24 18:00 07/11/24 17:30 Montelukast Sodium 10 Mg Tablet PO 10 mg QPM GUIDO Administration Pantoprazole Sodium 40 mg 07/11/24 11:15 07/11/24 17:30 Pantoprazole 40 Mg Sdv IVP 40 mg Q24H GUIDO Administration PFSH Acute 2 PFSH: Medical History Tobacco abuse disorder Diabetic neuropathy Diabetic foot ulcer Dependence on nocturnal oxygen therapy History of [place] (myocardial infarction) On supplemental oxygen by nasal cannula Enrolled in chronic care management Noncompliance Chronic obstructive pulmonary disease, unspecified Diabetes mellitus type 2 with complications, uncontrolled PVD (peripheral vascular disease) MARKO (obstructive sleep apnea) unable to tolerate Cpap due to claustrophobia Essential (primary) hypertension Hyperlipidemia, acquired History of TIA (transient ischemic attack) saw neurology after his TIA/stroke. Surgical History H/O right inguinal hernia repair Family History Other Diabetes Heart disease Stroke Social History Smoking and tobacco/nicotine status: current every day tobacco/nicotine user cigarettes [ Other cigarette details: 35 pack year history] Second hand smoke exposure: Yes Alcohol intake: never Substance/Drug Use: never Adopted: No Caregiver/support person: No Lives independently: Yes Household members: none Marital status: Single service: No Current occupational status: disabled Do you think of yourself as: Straight/Heterosexual Current gender identity: Male Vitals/I&O/Wt Last Vital Signs Temp 98.6 F 07/12/24 11:44 Pulse 80 07/12/24 11:44 Resp 16 07/12/24 11:44 BP 129/70 07/12/24 11:44 Pulse Ox 96 07/12/24 11:44 O2 Del Method Room Air 07/12/24 11:44 O2 Flow Rate 1 07/11/24 08:43 07/12/24 07/12/24 07/12/24 06:59 14:59 22:59 Intake Total 1650 / 2840 950 / 950 Output Total 800 / 1305 425 / 425 Balance 850 / 1535 525 / 525 Weight last 48 hrs Weight 175 lb 6 oz Weight 175 lb 6 oz Weight 176 lb Physical Exam 2 Narrative: General : Patient is well developed , no acute distress, oriented x3 Head : Normal cephalic, a-traumatic. Ears : Pinnae and external canal are normal. Hearing is normal. Eyes : PERRLA, Sclera and injection are normal. No conjunctival discharge. Nose : Mucous membranes are without erythema. Throat : buccal mucosa is normal, gums are without significant recession or hypertrophy. Lungs : Equal chest rise bilaterally, no use of accessory muscles, trachea is midline. Cor : Rate and rhythm are normal. Abdomen : Soft, ND, tender to palpation right upper quadrant, negative Enriquez's, no g/r/m Extremities : No edema, no cyanosis or clubbing, dorsalis pedis pulses are present bilaterally, non-tender to palpation of calves. Upper extremities are normal bilaterally. Back : non-tender to palpation, no CVA tenderness. Neuro : CN II - XII intact, Upper and lower extremities have equal and full strength Data 07/12/24 03:17 07/12/24 03:17 Micro: Microbiology 07/11/24 05:34 Blood Culture - Preliminary Blood NEGATIVE TO DATE 07/11/24 05:30 Blood Culture - Preliminary Blood NEGATIVE TO DATE 07/11/24 07:43 Gram Stain - Final Toe - Right Pinky A&P Assessment and plan (1) Calculus of gallbladder with cholecystitis: (2) Nausea & vomiting: (3) Intractable abdominal pain: Plan Laparoscopic cholecystectomy The risks and benefits of the procedure, including but not limited to, bleeding, infection, scar, numbness, pain, damage to surrounding structures, damage to common bile duct requiring additional surgery, conversion to an open procedure, were explained to the patient. He is understanding of the risks and wishes to proceed. Medical management per primary Coding Level of Care Code 80346 Diagnoses Calculus of gallbladder with cholecystitis K80.10 Nausea & vomiting R11.2 Intractable abdominal pain R10.9
--- NOTE | 2024-07-12 15:40 | P.ANESASSM_ITS ---
Pre-Anesthetic Assessment Height/Weight: Height 5 ft 9 in Weight 175 lb 6 oz Temp Pulse Resp BP Pulse Ox O2 Del Method O2 Flow Rate 98.6 F 80 16 129/70 96 Room Air 1 07/12/24 11:44 07/12/24 11:44 07/12/24 11:44 07/12/24 11:44 07/12/24 11:44 07/12/24 11:44 07/11/24 08:43 Preop Diagnosis: Choledocholithiasis Operation Date: 07/11/24 12:00 Proposed Procedures p right fifth toe amputation(Right) - Lester Fall DPM Operation Date: 07/12/24 15:55 Proposed Procedures p Laparoscopic Cholecystectomy(Not Applicable) - DO lori Kan Delayed Wound Closure(Right) - Lester Fall DPM Was Beta Khoi taken within 24 hours: N/A Was Clonidine taken within 24 hours: N/A Last intake: Intake Last Liquid Date 07/10/24 Last Liquid Time 21:00 Last Solid Date 07/10/24 Last Solid Time 21:00 Social Tobacco and No alcohol Exam alert, oriented x 3, clear to auscultation bilaterally and regular rate & rhythm Airway Submandibular: within normal limits Cervical ROM: within normal limits Mallampati: Class II Comments: Comments: Poor dentition Anesthetic Plan Other: No prior issues with anesthesia Patient was just here yesterday, MAC anesthetic, did well NPO since yesterday Current smoker Poor dentition CAD Type II DM on insulin, BS 268 today EKG sinus rhythm Plan for GETA Medications/Allergies Home Medications Medication Instructions Recorded Confirmed Last Taken Type albuterol sulfate 90 mcg/actuation 2 inh inhalation Q4H PRN shortness 09/22/23 07/11/24 Unknown Rx aerosol inhaler (Ventolin HFA) of breath or wheezing 30 days #6.7 grams aspirin 81 mg tablet,delayed 81 mg PO DAILY 30 days #30 tabs 09/22/23 07/11/24 Unknown Rx release (Adult Low Dose Aspirin) fluticasone 250 mcg-salmeterol 50 1 inh inhalation BID 30 days #1 ea 09/22/23 07/11/24 Unknown Rx mcg/dose blistr powdr for inhalation (Advair Diskus) citalopram 20 mg tablet 20 mg PO DAILY 30 days #30 tabs 06/13/24 07/11/24 Unknown Rx dulaglutide 1.5 mg/0.5 mL 1.5 mg (0.5 mL) SUBCUT .weekly 30 06/13/24 07/11/24 Unknown Rx subcutaneous pen injector days #4 ea (Trulicity) insulin degludec 100 unit/mL (3 70 unit (0.7 mL) SUBCUT DAILY 30 06/13/24 07/11/24 Unknown Rx mL) subcutaneous pen (Tresiba days #15 mL FlexTouch U-100 insulin) lisinopril 2.5 mg tablet 2.5 mg PO DAILY 30 days #30 tabs 06/13/24 07/11/24 Unknown Rx empagliflozin 25 mg tablet 25 mg PO DAILY 07/11/24 07/11/24 Unknown History (Jardiance) Allergies Allergy/AdvReac Type Severity Reaction Status Date / Time gabapentin Allergy Unknown Verified 07/11/24 05:16 Penicillins Allergy Unknown Verified 07/11/24 05:16 Current Medications Generic Name Dose Route Start Last Admin Trade Name Freq PRN Reason Stop Dose Admin Albuterol/Ipratropium 3 ml 07/11/24 11:10 07/12/24 09:01 Ipratropium-Albuterol 3 Ml Neb INHALATION 3 ml Q6H PRN Administration SHORTNESS OF BREATH Aspirin 81 mg 07/12/24 09:00 07/12/24 09:01 Aspirin 81 Mg Ec Tablet PO 81 mg DAILY GUIDO Administration Budesonide 0.5 mg 07/11/24 20:00 07/12/24 09:01 Budesonide 0.5 Mg/2 Ml Neb INHALATION 0.5 mg BID.RESPIRATORY GUIDO Administration Citalopram Hydrobromide 20 mg 07/12/24 09:00 07/12/24 09:01 Citalopram 20 Mg Tablet PO 20 mg DAILY GUIDO Administration Heparin Sodium (Porcine) 5,000 unit 07/12/24 08:00 07/12/24 09:01 Heparin 5,000 Unit/Ml Inj 1 Ml SUBCUT 5,000 unit Q12H GUIDO Administration Metronidazole 500 mg in 100 mls @ 100 mls/hr 07/11/24 08:15 07/12/24 11:23 Flagyl Iv IV Infused Q8H GUIDO Infusion Protocol Ciprofloxacin/Dextrose 400 mg in 200 mls @ 200 mls/hr 07/11/24 08:30 07/12/24 11:39 Cipro IV Infused Q12H GUIDO Infusion Protocol Sodium Chloride 1,000 mls @ 75 mls/hr 07/11/24 11:15 07/12/24 02:12 Sodium Chloride 0.9% IV Infused .[id number] GUIDO Infusion Vancomycin HCl 1,000 mg/ 250 mls @ 250 mls/hr 07/11/24 20:00 07/12/24 14:29 Sodium Chloride IV Infused Q8H GUIDO Infusion Insulin Human Lispro 0 unit 07/11/24 12:00 07/12/24 11:43 Insulin Lispro 100 Unit/1 Ml SUBCUT Not Given WM&BEDTIME GUIDO Protocol Montelukast Sodium 10 mg 07/11/24 18:00 07/11/24 17:30 Montelukast Sodium 10 Mg Tablet PO 10 mg QPM GUIDO Administration Pantoprazole Sodium 40 mg 07/11/24 11:15 07/11/24 17:30 Pantoprazole 40 Mg Sdv IVP 40 mg Q24H GUIDO Administration PFSH Anesthesia Medical History Tobacco abuse disorder Diabetic neuropathy Diabetic foot ulcer Dependence on nocturnal oxygen therapy History of NH (myocardial infarction) On supplemental oxygen by nasal cannula Enrolled in chronic care management Noncompliance Chronic obstructive pulmonary disease, unspecified Diabetes mellitus type 2 with complications, uncontrolled PVD (peripheral vascular disease) MARKO (obstructive sleep apnea) unable to tolerate Cpap due to claustrophobia Essential (primary) hypertension Hyperlipidemia, acquired History of TIA (transient ischemic attack) saw neurology after his TIA/stroke. Surgical History H/O right inguinal hernia repair Family History Other Diabetes Heart disease Stroke Social History Smoking and tobacco/nicotine status: current every day tobacco/nicotine user cigarettes [ Other cigarette details: 35 pack year history] Second hand smoke exposure: Yes Alcohol intake: never Substance/Drug Use: never Adopted: No Caregiver/support person: No Lives independently: Yes Household members: none Marital status: Single service: No Current occupational status: disabled Do you think of yourself as: Straight/Heterosexual Current gender identity: Male Data Anesthesia 07/12/24 03:17 07/12/24 03:17 Short CBC 07/11/24 07/12/24 Range/Units 05:30 03:17 WBC 10.92 10.21 (3.29-11.43) 10^3/uL Hgb 15.30 13.90 (11.27-16.99) g/dL Hct 45.4 41.7 (37-53) % MCV 89.7 89.9 (82-101) fl Plt Count 328 325 (157-399) 10^3/cmm Neut % (Auto) 84.4 87.8 % Neut # (Auto) 9.22 H 8.96 H (1.8-7.7) 10^3/uL BMP 07/11/24 07/12/24 05:30 03:17 Sodium 140 137 Potassium 3.7 4.3 Chloride 99 102 Carbon Dioxide 24 25 BUN 7 14 Creatinine 0.5 L 0.5 L Glucose 247 H 268 H Calcium 8.9 8.3 L Liver Function 07/11/24 07/12/24 Range/Units 05:30 03:17 Total Bilirubin 0.7 0.4 (0.15-1.2) mg/dL AST 11 10 (0-40) U/L ALT 9 7 (0-41) U/L Alkaline Phosphatase 98 82 (40-130) U/L Albumin 3.8 3.3 L (3.5-5.2) g/dL Urine 07/11/24 Range/Units 11:05 Urine Color Yellow (Yellow) Urine Appearance Clear (CLEAR) Urine pH 5.5 (5-7) Ur Specific Thomson 1.041 H (1.005-1.030) Urine Protein Negative (Negative) Urine Glucose (UA) 3+ H (Normal) Urine Ketones 3+ H (Negative) Urine Nitrate Negative (Negative) Urine Bilirubin Negative (Negative) Ur Leukocyte Esterase Negative (Negative) Urine RBC 0-2 (0-2) /hpf Urine WBC 0-5 (0-5) /hpf COVID Results 07/11/24 05:30 Coronavirus (PCR) Negative Coags 07/11/24 05:30 C-Reactive Protein 5.6 H Microbiology 07/11/24 05:34 Blood Culture - Preliminary Blood NEGATIVE TO DATE 07/11/24 05:30 Blood Culture - Preliminary Blood NEGATIVE TO DATE 07/11/24 07:43 Gram Stain - Final Toe - Right Pinky Cardiac Studies: 2 No Data to Display
--- NOTE | 2024-07-12 16:24 | PC.NURSE ---
Patient left the unit to surgery at 1625.
--- NOTE | 2024-07-12 16:36 | W.PM.OPSUD ---
Surgery/Procedure H&P Update DATE OF PROCEDURE: July 12, 2024 DATE H&P PERFORMED: 07/11/24 H&P UPDATE INFORMATION: I have reviewed H&P completed within last 30 days, I have examined patient prior to procedure, No changes to prior documentation and H&P is in [facility] on date indicated PREOP DIAGNOSIS: Choledocholithiasis PLANNED PROCEDURE: Operation Date: 07/11/24 12:00 Proposed Procedures p right fifth toe amputation(Right) - Lester Fall DPM Operation Date: 07/12/24 15:55 Proposed Procedures p Laparoscopic Cholecystectomy(Not Applicable) - DO lori Kan Delayed Wound Closure(Right) - Lester Fall DPM
[2024-07-12] MEDS: sodium chloride 0.9% 1,000 ML 30 ML IV (16:45)
[2024-07-12] MEDS: lidocaine-epi 1% 20 mL INJ 5 ML INJECTION (17:55)
--- NOTE | 2024-07-12 18:03 | P.OP_ITS ---
Operative Report Date of procedure: July 12, 2024 Surgeon: Charles Dhillon DO Procedure: Preoperative diagnosis: Calculous cholecystitis Postoperative diagnosis: Same Procedure performed: Laparoscopic cholecystectomy Surgeon: Dr. Charles Dhillon DO Estimated blood loss: 5 mL Specimens: Gallbladder to pathology Findings: The large gallstone drastically thinned walled gallbladder 1 portion that was almost perforated Complications: None apparent Description of procedure: Patient was wheeled into the operative room and placed on the OR table in a supine position. Abdomen was inspected prepped and draped in usual sterile fashion. Time-out was performed and all present were in agreement. A 15 blade scalp was used to make a stab incision in the left upper quadrant and intra- abdominal insufflation was achieved using a Veress needle. After localizing the tissue incisions were made and a 5 millimeter trocar was placed into the umbilicus as well as 2 in the right upper quadrant. A 12 millimeter trocar was placed in the epigastrium. Gallbladder was grasped and elevated. The inferior portion of the fundus of the gallbladder was distended by the large stone to the point that there was nearly a perforation. The triangle of Calot was carefully dissected using blunt dissection and electrocautery until the triangle of Calot clearly identified. The cystic duct was clipped proximally and double clipped distally. The duct was then ligated proximally. The cystic artery was doubly clipped and ligated. The gallbladder was then removed from the liver bed using electrocautery. The gallbladder was removed from the abdomen using an Endo- Catch bag through the epigastric incision. The liver bed was inspected and no bleeding was seen. The abdomen was irrigated and suctioned. All ports removed. Skin was washed and dried. Incisions were closed with 4-0 Monocryl in a subcuticular interrupted fashion. Skin glue was applied. Patient tolerated the procedure well.
--- NOTE | 2024-07-12 18:39 | P.OP_ITS ---
Operative Report Date of procedure: July 12, 2024 Pre-op diagnosis: Gangrene right fifth toe Wound exposed to fat layer right fourth toe Post-op diagnosis: Same Procedure done: Primary delayed closure right foot. CPT code 51383 Implants: 4-0 Vicryl, 4-0 nylon Specimens removed/disposition: None Pathology: none Surgeon: Lester Fall DPM Manager [employer]: Florencio Estimated blood loss: 1 5 IV fluids: See intraoperative documentation Urine output: 0 Complications: No complications Brief History: Patient underwent amputation of right fifth toe secondary to wet gangrene wound was left open for monitoring of soft tissue under antibiotic therapy and wound care once soft tissue became more viable he was recommended for further debridement and primary delayed closure of the wound. Patient is agreeable wishes to proceed. Procedure: Under mild sedation the patient was brought to the operating room and placed on the operative table in supine position. A timeout was performed. Anesthesia was administered by the anesthesia service. Local anesthesia injected by myself consisting of 0.5% Marcaine plain total of 20 cc in a reverse Grossman block fashion to the right foot. I followed a general surgery case consisting of chol ecystectomy once this was done and drapes were removed the right lower extremity scrubbed, prepped and draped utilizing normal aseptic technique. Right foot was elevated and tourniquet inflated to 250 mmHg which was well-padded at the right ankle. Attention was directed to the distal lateral aspect of the right foot where amputation site of the fifth toe was appreciated able to visualize the first metatarsal head and some devitalized adjacent soft tissue down to including subcutaneous tissue, fat layer and mild tenderness layer this was sharply and excisionally debrided with pickups and a #15 blade as well as a rongeur all devitalized tissue was debrided, the incision was irrigated with saline solution, the incision measured 5 cm in length. This was then closed in a layered fashion with subcutaneous tissue reapproximated with 4-0 Vicryl and skin with 4-0 nylon. The incision was dressed with Adaptic, sterile 4 x 4's, Kerlix and Clint wrap followed by application of a postop shoe. Tourniquet was deflated and a prompt hyperemic response is noted to the distal digits of the right foot. Patient tolerated the procedure and anesthesia well and was transferred to the PACU with vital signs stable and vascular status intact. Following a period of postoperative monitoring he will be transferred back to the cardiac stepdown unit.
[2024-07-12] MEDS: fentaNYL 50 mcg/mL INJ 2mL IVP (19:02)
--- NOTE | 2024-07-12 19:23 | ANE.PACU2 ---
Inpatient post-anesthesia follow up: Airway intact: Yes Vital signs: Temperature 97.9 F Pulse Rate 124 Respiratory Rate 15 Blood Pressure 134/94 Pulse Oximetry 96 Oxygen Delivery Me thod Room Air Oxygen Flow Rate 7 Fraction of Inspir ed Oxygen Hydration adequate: Yes Nausea and vomiting: No Pain level: 1 Mental status: Baseline
[2024-07-12 20:34] LABS: Glucose Point of Care 231 mg/dL (70-110)
[2024-07-12 20:44] LABS: Vancomycin Trough 16.6 ug/mL (10-15)
--- NOTE | 2024-07-12 21:35 | PC.NURSE ---
Patient returned from surgery with complaints of 8/10 pain. He became agitated, trying to crawl out of bed, swinging call light at staff. When offered PRN Oxycodone patient stated he wasn't in any pain and that he didn't want to take it . Oxycodone was wasted in Pyxis with second RN.
[2024-07-12] MEDS: ondansetron 2 mg/ML SDV 2 mL 4 MG IVP (23:03)
[2024-07-13] VITALS (49 sets, daily range): BP systolic 83–185; BP diastolic 63–122; PULSE 86–149; RESP 0–31; TEMP 36.5–36.8; O2SAT 90–99
--- NOTE | 2024-07-13 00:56 | ECG_ITS ---
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 Measurements Intervals [place] Rate: 134 P: 0 IA: 0 QRS: 36 QRSD: 89 T: 51 QT: 295 QTc: 441 Interpretive Statements ATRIAL FIBRILLATION WITH RAPID VENTRICULAR RESPONSE LOW QRS VOLTAGE IN EXTREMITY LEADS [QRS DEFLECTION < 0.5 mV IN LIMB LEADS] MODERATE ST DEPRESSION [0.05+ mV ST DEPRESSION] Compared to ECG 07/11/2024 16:08:00 Low QRS voltage now present Sinus rhythm no longer present ST (T wave) deviation still present Electronically Signed On 07-13-2024 16:56:24 REFRESH TECHNICIAN by Annalise Morales M.D. [email or web address]
--- NOTE | 2024-07-13 01:08 | PC.NURSE ---
PAtient went into afib rvr. Given orders to start Amiodarone IV.
[2024-07-13] MEDS: amiodarone 50 mg/mL SDV 3 mL 150 MG IVP (01:15)
[2024-07-13] MEDS: morphine 4 mg/mL SDV 1 mL IVP (01:31)
[2024-07-13] MEDS: enoxaparin 80 mg/0.8 mL Syringe SUBCUT ×2 (03:22→13:17)
[2024-07-13] MEDS: VANCOMYCIN ADD-Vantage 1,000 MG in 0.9% NaCl ADD-Vantage 250 ML 250 MG IV ×3 (03:23→20:04)
[2024-07-13] MEDS: metroNIDAZOLE IV 500 MG/100 ML PREMIX 100 MG IV (03:23)
[2024-07-13 05:49] LABS: Basophils % 0.1 %; Hematocrit 47.4 % (37-53); Lymphocytes # 0.6 10^3/uL (0.8-4.8); Lymphocytes % 4.4 %; Mean Corpuscular HGB Conc 32.7 g/dL (30-55); Mean Corpuscular Hemoglobin 30.8 pg (27-33); Mean Corpuscular Volume 94.2 fl (82-101); Mean Platelet Volume 9.3 fL (7.4-10.4); Monocytes # 0.5 10^3/uL (0.2-0.9); Monocytes % 3.6 %; Neutrophils # 12.73 10^3/uL (1.8-7.7); Neutrophils % 91.5 %; Nucleated Red Blood Cells % 0 %; Platelet Count 319 10^3/cmm (157-399); Red Blood Count 5.03 10^6/uL (3.85-5.65); Red Cell Distribution Width 12.5 % (12.1-15.1)
[2024-07-13 06:49] LABS: Alanine Aminotransferase 49 U/L (0-41); Albumin Level 3.2 g/dL (3.5-5.2); Alkaline Phosphatase 96 U/L (40-130); Anion Gap 25.3 (5-19); Aspartate Amino Transferase 51 U/L (0-40); Blood Urea Nitrogen 16 mg/dL (6-20); Calcium 8.4 mg/dL (8.5-10.5); Carbon Dioxide 15 mmol/L (22-29); Chloride 100 mmol/L (98-107); Creatinine Clr Calc Pharmacy 149.7515; Globulin 2.6 g/dL (1.3-4.6); Glomerular Filtration Rate 140.4 mL/min (90-130); Glucose 260 mg/dL (65-115); Osmolality Calculated 292 mOsm/kg (285-295); Potassium 4.3 mmol/L (3.5-5.1); Sodium 136 mmol/L (136-145); Total Bilirubin 0.2 mg/dL (0.15-1.2); Total Protein 5.8 g/dL (6.6-8.7)
[2024-07-13 06:51] LABS: Glucose Point of Care 231 mg/dL (70-110)
--- NOTE | 2024-07-13 07:13 | PM.PN ---
Subjective Subjective: 1 day status post primary delayed closure right foot. Patient doing well, denies any acute events overnight. Vitals/I&O/Wt Last Vital Signs Temp 97.9 F 07/13/24 04:00 Pulse 124 H 07/13/24 04:00 Resp 15 07/13/24 04:00 BP 134/94 07/13/24 04:00 Pulse Ox 96 07/13/24 04:00 O2 Del Method Room Air 07/13/24 04:00 O2 Flow Rate 7 07/12/24 18:47 07/12/24 07/13/24 07/13/24 22:59 06:59 14:59 Intake Total 1710 / 2660 1507.54 / 4167.54 Output Total 251 / 676 Balance 9 / 1983 1507.54 / 3491.54 Weight last 48 hrs Weight 180 lb 12.8 oz Weight 175 lb 6 oz Weight 175 lb 6 oz Physical Exam Narrative: VASCULAR: Pedal pulses palpable dorsalis pedis and posterior tibial arteries bilaterally, delayed capillary refill time right fifth toe. NEUROLOGICAL: Absent protective sensation at the bilateral foot, tested with [place] monofilament. DERMATOLOGICAL: Postoperative dressing clean dry and intact without strikethrough bleeding right foot. No ascending erythema warmth or cellulitis at the right lower extremity from the right foot dressing. Stable appearing wound at the lateral aspect of the right fourth toe with granular base and no erythema warmth or purulent drainage. MUSCULOSKELETAL: No pain to palpation right foot secondary to neuropathy. Tailor's bunion bilaterally and fifth hammertoe digit bilaterally. Status post right fifth toe amputation Data 07/13/24 04:49 07/13/24 04:49 Micro: Microbiology 07/11/24 07:43 Gram Stain - Final Toe - Right Pinky Wound Culture - Preliminary Gram Negative Rods 07/11/24 05:34 Blood Culture - Preliminary Blood NEGATIVE TO DATE 07/11/24 05:30 Blood Culture - Preliminary Blood NEGATIVE TO DATE A&P Assessment and plan (1) Diabetes mellitus type 2 with complications, uncontrolled: (2) Gangrene of toe of right foot: Plan 54-year-old uncontrolled diabetic male, current everyday smoker presents with gangrene of the right fifth toe. Status post right fifth toe amputation secondary to gangrene performed 07/11/2024 Status post primary delayed closure right fifth toe amputation site performed 07/12/2024 Clean margins appreciated intraoperatively and level of amputation was curative of infection source control. Oral antibiotics at discharge per hospitalist No further surgical intervention for right foot anticipated at this time. Attestations Medical Necessity Statement*: Continued antibiotics and wound care Coding Level of Care Code Acute Code for [facility] Fwd Diagnoses Diabetes mellitus type 2 with complications, uncontrolled E11.8; E11.65 Gangrene of toe of right foot I96
[2024-07-13] MEDS: ondansetron 2 mg/ML SDV 2 mL 4 MG IVP (07:21)
[2024-07-13 07:47] LABS: Ketone (Acetest) Serum Positive (Negative)
[2024-07-13] MEDS: insulin glargine 100 units/1 mL 10 UNIT SUBCUT (07:48)
[2024-07-13] MEDS: metoprolol tartrate 1 mg/1 mL SDV 5 mL 5 MG IVP ×2 (08:29→13:17)
[2024-07-13] MEDS: citalopram 20 mg Tablet PO (08:29)
[2024-07-13] MEDS: aspirin 81 mg EC Tablet PO (08:29)
[2024-07-13] MEDS: insulin lispro 100 unit/1 mL SUBCUT (08:30)
[2024-07-13] MEDS: sodium chloride 0.9% 500 ML IV (08:31)
--- NOTE | 2024-07-13 08:52 | P.PN_ITS ---
Subjective 2 Subjective: Went into atrial fibrillation with rapid ventricular rate last night. Amiodarone started. He is vomiting this morning. He reports his abdomen is slightly tender from surgery but no severe tenderness. No chest discomfort. Medications: Reviewed: Yes Vitals/I&O/Wt Last Vital Signs Temp 97.8 F 07/13/24 07:49 Pulse 128 H 07/13/24 07:49 Resp 18 07/13/24 07:49 BP 120/91 07/13/24 07:49 Pulse Ox 98 07/13/24 07:49 O2 Del Method Room Air 07/13/24 07:49 O2 Flow Rate 7 07/12/24 18:47 07/12/24 07/13/24 07/13/24 22:59 06:59 14:59 Intake Total 1710 / 2660 1507.54 / 4167.54 Output Total 251 / 676 1025 / 1025 Balance 1458 / 1983 1507.54 / 3491.54 -1025 / -1025 Weight last 48 hrs Weight 82.01 kg Weight 79.549 kg Weight 79.549 kg Physical Exam 2 Narrative: General: Vomiting. HEENT: No tongue swelling Cardiovascular: Irregular, irregular, tachycardic. Pulmonary: Clear with diminished breath sounds at the bases. Abdomen: Soft, nondistended. Does not really feel tender according to the patient. Surgical sites with no drainage Extremities: No edema. No cyanosis. Dressing in place over distal right foot s/p debridement. Data 07/13/24 04:49 07/13/24 04:49 Micro: Microbiology 07/11/24 07:43 Gram Stain - Final Toe - Right Pinky Wound Culture - Preliminary Gram Negative Rods 07/11/24 05:34 Blood Culture - Preliminary Blood NEGATIVE TO DATE 07/11/24 05:30 Blood Culture - Preliminary Blood NEGATIVE TO DATE A&P Assessment and plan (1) Nausea & vomiting: Presented with several days of nausea and vomiting. Nonbloody, nonbilious. No electrolyte derangements. Lipase not elevated. Gallbladder US showed cholelithiasis and some dilation of common bile duct. LFTs within normal limits. Patient had surgical consult Postoperative day #1 status post laparoscopic cholecystectomy No need for antibiotics for this per surgery (2) Diabetic wet gangrene of the foot: Wet gangrene of right fifth toe. No obvious surrounding cellulitis or signs of ascending infection. Podiatry consult appreciated 2 days s/p debridement Day #2 s/p surgical amputation of right fifth toe, day #1 status post closure As wound now growing gram-negative rods, will continue Cipro currently. Continue vancomycin currently (3) Diabetes mellitus type 2 with complications, uncontrolled: A1c 12.3. Has established complications including peripheral neuropathy and vascular disease. Sliding scale insulin. Carbohydrate controlled diet and long-acting insulin when not NPO. As his anion gap is elevated, will give him a dose of IV fluids. Likely secondary to nausea and vomiting. Check serum ketones. Potentially he may have DKA. Dose of Lantus now. (4) Chronic obstructive pulmonary disease, unspecified: Currently not requiring supplemental oxygen. Has inhalers at home but is noncompliant with using them. Has orders for budesonide BID, montelukast QPM, and DuoNebs PRN. Qualifiers: COPD type: unspecified COPD Qualified Code(s): J44.9 - Chronic obstructive pulmonary disease, unspecified (5) Angioedema of lips: Not associated with swelling of the throat or tongue. Patient is on lisinopril at home. Has received Benadryl, Solu-Medrol, Singulair, Famotidine, and Tylenol. Significantly improved. Discontinue Solu-Medrol and Benadryl Serial visual exams. Bedside monitor, intermediate care Added lisinopril as allergy Qualifiers: Encounter type: initial encounter Qualified Code(s): T78.3XXA - Angioneurotic edema, initial encounter Plan Atrial fibrillation for rapid ventricular rate Full dose anticoagulation Amiodarone initiated Metoprolol 5 mg IV x 1 Likely start oral metoprolol as well depending upon results of IV Will begin DVT prophylaxis after surgery. Attestations 2 Medical Necessity Statement*: Needs continued hospital stay secondary to A-fib with RVR Diagnoses Nausea & vomiting R11.2 Diabetic wet gangrene of the foot E11.52 Diabetes mellitus type 2 with complications, uncontrolled E11.8; E11.65 Chronic obstructive pulmonary disease, unspecified COPD type J44.9 COPD type: unspecified COPD Angioedema of lips T78.3XXA Encounter type: initial encounter Time Spent (min) 24
[2024-07-13 09:23] LABS: Magnesium 2.1 mg/dL (1.7-2.3)
[2024-07-13 10:52] LABS: Glucose Point of Care 223 mg/dL (70-110)
--- NOTE | 2024-07-13 10:57 | PC.SOCIAL ---
IMM Updated Updated pt on IMM. No questions voiced. Provided pt a copy. Initialed, dated, & timed a copy & placed in chart.
[2024-07-13 12:00] LABS: Glucose Point of Care 203 mg/dL (70-110)
[2024-07-13] MEDS: ciprofloxacin 400 MG/200 ML PREMIX 200 MG IV (12:29)
[2024-07-13] MEDS: INSULIN REGULAR IN 0.9 % NACL 100 UNIT/100 ML BAG 8 UNIT IV (12:30)
[2024-07-13] MEDS: D5-NS 0.45% + KCL 20 mEq 20 MEQ/1,000 ML BAG 125 MEQ IV ×2 (12:31→22:30)
[2024-07-13 12:36] LABS: Anion Gap 24.2 (5-19); Blood Urea Nitrogen 16 mg/dL (6-20); Calcium 8.5 mg/dL (8.5-10.5); Carbon Dioxide 18 mmol/L (22-29); Chloride 101 mmol/L (98-107); Creatinine Clr Calc Pharmacy 128.3584; Glomerular Filtration Rate 117.5 mL/min (90-130); Glucose 250 mg/dL (65-115); Osmolality Calculated 298 mOsm/kg (285-295); Potassium 4.2 mmol/L (3.5-5.1); Sodium 139 mmol/L (136-145)
[2024-07-13] MEDS: metoclopramide 5 mg/mL SDV 2 mL 10 MG IVP ×2 (14:23→20:07)
--- NOTE | 2024-07-13 14:43 | P.PN_ITS ---
Subjective 2 Subjective: Patient went into DKA today and was transferred to the ICU for an insulin drip Vitals/I&O/Wt Last Vital Signs Temp 98.3 F 07/13/24 11:24 Pulse 135 H 07/13/24 11:24 Resp 21 H 07/13/24 11:24 BP 117/84 07/13/24 11:24 Pulse Ox 98 07/13/24 11:24 O2 Del Method Room Air 07/13/24 11:24 O2 Flow Rate 7 07/12/24 18:47 07/12/24 07/13/24 07/13/24 22:59 06:59 14:59 Intake Total 1710 / 2660 1507.54 / 4167.54 15.067 / 15.067 Output Total 251 / 676 1025 / 1025 Balance 1459 / 1984 1507.54 / 3491.54 -1009.933 / -1009.933 Weight last 48 hrs Weight 180 lb 12.8 oz Weight 175 lb 6 oz Weight 175 lb 6 oz Physical Exam 2 Narrative: General: No acute distress, patient is nauseous, awake alert and oriented x 3 Abdomen: Soft, nondistended, appropriately tender Incisions intact without erythema or exudate Data 07/13/24 04:49 07/13/24 12:01 Micro: Microbiology 07/11/24 07:43 Gram Stain - Final Toe - Right Pinky Wound Culture - Preliminary Gram Negative Rods A&P Assessment and plan (1) Calculus of gallbladder with cholecystitis: (2) Nausea & vomiting: (3) Intractable abdominal pain: Plan Postop day #1 status post laparoscopic cholecystectomy. There is a very large gallstone in the gallbladder with a very thin portion of the gallbladder inferior aspect of the fundus, near perforation Diet as tolerated Medical management per primary Attestations 2 Medical Necessity Statement*: per primary Coding Level of Care Code Acute Code for g Fwd Diagnoses Calculus of gallbladder with cholecystitis K80.10 Nausea & vomiting R11.2 Intractable abdominal pain R10.9
--- NOTE | 2024-07-13 14:50 | P.BOP_ITS ---
400 date of Procedure: 10/21/23 Surgeon: Lester Fall DPM Account Manager [employer](s): Dari Procedure(s) performed: Incision and debridement right foot Findings of the procedure(s): Tracking purulence on extensor tendons both medial and laterally to the right foot, nothing found tracking proximal to the level of the ankle joint. Wound did not extend to bone, was at the myofascial and tendi nous layer with heavy white purulence. Estimated blood loss: 25 mL Specimen(s) removed: No cultures taken intraoperatively as he has been receiving empiric IV antibiotics, wound cultures were taken postdebridement prior to antibiotic therapy being initiated in the emergency department Post-operative diagnosis: Right diabetic foot infection, cellulitis right foot, abscess right foot
[2024-07-13 16:11] LABS: Anion Gap 20.5 (5-19); Blood Urea Nitrogen 16 mg/dL (6-20); Calcium 8.4 mg/dL (8.5-10.5); Carbon Dioxide 18 mmol/L (22-29); Chloride 104 mmol/L (98-107); Creatinine Clr Calc Pharmacy 149.7515; Glomerular Filtration Rate 140.4 mL/min (90-130); Glucose 222 mg/dL (65-115); Osmolality Calculated 296 mOsm/kg (285-295); Potassium 3.5 mmol/L (3.5-5.1); Sodium 139 mmol/L (136-145)
[2024-07-13 16:56] LABS: Glucose Point of Care 213 mg/dL (70-110)
[2024-07-13 16:56] LABS: Glucose Point of Care 229 mg/dL (70-110)
[2024-07-13 17:20] LABS: Glucose Point of Care 125 mg/dL (70-110)
[2024-07-13] MEDS: pantoprazole 40 mg SDV IVP (17:42)
[2024-07-13] MEDS: montelukast sodium 10 mg Tablet PO (17:42)
[2024-07-13 18:30] LABS: Glucose Point of Care 99 mg/dL (70-110)
[2024-07-13 18:30] LABS: Glucose Point of Care 108 mg/dL (70-110)
--- NOTE | 2024-07-13 18:34 | PC.NURSE ---
Patient's blood sugar dropped more than 100. Doctor Marisa was notified and he ordered to follow protocol. Insulin drip was titrated down to 1 unit/hr per protocol.
[2024-07-13 20:29] LABS: Anion Gap 14.1 (5-19); Blood Urea Nitrogen 16 mg/dL (6-20); Carbon Dioxide 22 mmol/L (22-29); Chloride 107 mmol/L (98-107); Creatinine Clr Calc Pharmacy 149.7515; Glomerular Filtration Rate 140.4 mL/min (90-130); Glucose 204 mg/dL (65-115); Osmolality Calculated 295 mOsm/kg (285-295); Potassium 4.1 mmol/L (3.5-5.1); Sodium 139 mmol/L (136-145)
[2024-07-13] MEDS: oxyCODONE 5 mg IR Tab/Cap PO (20:30)
[2024-07-13] MEDS: metoprolol tartrate 25 mg Tablet PO (20:30)
[2024-07-13 20:41] LABS: Glucose Point of Care 139 mg/dL (70-110)
[2024-07-13 20:41] LABS: Glucose Point of Care 137 mg/dL (70-110)
[2024-07-13] MEDS: budesonide 0.5 mg/2 mL Neb INHALATION (21:01)
[2024-07-14] VITALS (25 sets, daily range): BP systolic 84–182; BP diastolic 60–117; PULSE 68–137; RESP 0–22; TEMP 36.3–36.7; O2SAT 91–100
[2024-07-14 00:16] LABS: Anion Gap 12.8 (5-19); Blood Urea Nitrogen 15 mg/dL (6-20); Calcium 8.1 mg/dL (8.5-10.5); Carbon Dioxide 22 mmol/L (22-29); Chloride 109 mmol/L (98-107); Creatinine Clr Calc Pharmacy 149.7515; Glomerular Filtration Rate 140.4 mL/min (90-130); Glucose 185 mg/dL (65-115); Osmolality Calculated 296 mOsm/kg (285-295); Potassium 3.8 mmol/L (3.5-5.1); Sodium 140 mmol/L (136-145)
[2024-07-14] MEDS: enoxaparin 80 mg/0.8 mL Syringe SUBCUT ×2 (01:41→15:00)
[2024-07-14] MEDS: VANCOMYCIN ADD-Vantage 1,000 MG in 0.9% NaCl ADD-Vantage 250 ML 250 MG IV ×3 (03:02→20:51)
[2024-07-14 04:44] LABS: Glucose Point of Care 161 mg/dL (70-110)
[2024-07-14 04:44] LABS: Glucose Point of Care 162 mg/dL (70-110)
[2024-07-14 04:44] LABS: Glucose Point of Care 168 mg/dL (70-110)
[2024-07-14 04:44] LABS: Glucose Point of Care 163 mg/dL (70-110)
[2024-07-14 04:44] LABS: Glucose Point of Care 154 mg/dL (70-110)
[2024-07-14 04:44] LABS: Glucose Point of Care 174 mg/dL (70-110)
[2024-07-14 04:44] LABS: Glucose Point of Care 176 mg/dL (70-110)
[2024-07-14 04:46] LABS: Basophils % 0.1 %; Hematocrit 46.8 % (37-53); Lymphocytes # 2.1 10^3/uL (0.8-4.8); Lymphocytes % 14.2 %; Mean Corpuscular HGB Conc 34.6 g/dL (30-55); Mean Corpuscular Hemoglobin 30.7 pg (27-33); Mean Corpuscular Volume 88.8 fl (82-101); Mean Platelet Volume 9.5 fL (7.4-10.4); Monocytes # 1.3 10^3/uL (0.2-0.9); Neutrophils # 11.27 10^3/uL (1.8-7.7); Neutrophils % 76.4 %; Nucleated Red Blood Cells % 0 %; Platelet Count 298 10^3/cmm (157-399); Red Blood Count 5.27 10^6/uL (3.85-5.65); Red Cell Distribution Width 12.5 % (12.1-15.1); White Blood Count 14.76 10^3/uL (3.29-11.43)
[2024-07-14] MEDS: D5-NS 0.45% + KCL 20 mEq 20 MEQ/1,000 ML BAG 125 MEQ IV (05:03)
[2024-07-14 05:11] LABS: Alanine Aminotransferase 43 U/L (0-41); Albumin Level 2.9 g/dL (3.5-5.2); Alkaline Phosphatase 88 U/L (40-130); Anion Gap 17.8 (5-19); Aspartate Amino Transferase 29 U/L (0-40); Blood Urea Nitrogen 13 mg/dL (6-20); Calcium 8.4 mg/dL (8.5-10.5); Carbon Dioxide 18 mmol/L (22-29); Chloride 108 mmol/L (98-107); Creatinine Clr Calc Pharmacy 149.7515; Globulin 2.6 g/dL (1.3-4.6); Glomerular Filtration Rate 140.4 mL/min (90-130); Glucose 190 mg/dL (65-115); Osmolality Calculated 295 mOsm/kg (285-295); Potassium 3.8 mmol/L (3.5-5.1); Sodium 140 mmol/L (136-145); Total Bilirubin 0.4 mg/dL (0.15-1.2); Total Protein 5.5 g/dL (6.6-8.7)
[2024-07-14 05:14] LABS: Glucose Point of Care 173 mg/dL (70-110)
[2024-07-14 06:05] LABS: Glucose Point of Care 180 mg/dL (70-110)
[2024-07-14 07:21] LABS: Glucose Point of Care 179 mg/dL (70-110)
--- NOTE | 2024-07-14 07:40 | P.PN_ITS ---
Subjective 2 Subjective: Patient seen bedside in ICU he is 2 days status post primary delayed closure right foot. Patient doing well, denies any acute events overnight. Vitals/I&O/Wt Last Vital Signs Temp 97.9 F 07/14/24 04:00 Pulse 116 H 07/14/24 06:00 Resp 0 L 07/14/24 04:30 BP 110/78 07/14/24 04:30 Pulse Ox 91 07/14/24 04:30 O2 Del Method Room Air 07/14/24 04:30 O2 Flow Rate 2 07/14/24 04:00 07/13/24 07/14/24 07/14/24 22:59 06:59 14:59 Intake Total 2561.749 / 2576.816 1292.939 / 3869.755 1.333 / 1.333 Output Total 1300 / 2325 Balance 2561.749 / 1551.816 -7.061 / 1544.755 1.333 / 1.333 Weight last 48 hrs Weight 179 lb 4.8 oz Weight 180 lb 12.8 oz Physical Exam 2 Narrative: VASCULAR: Pedal pulses palpable dorsalis pedis and posterior tibial arteries bilaterally, delayed capillary refill time right fifth toe. NEUROLOGICAL: Absent protective sensation at the bilateral foot, tested with [place] Nneka monofilament. DERMATOLOGICAL: Postoperative dressing clean dry and intact without strikethrough bleeding right foot. No ascending erythema warmth or cellulitis at the right lower extremity from the right foot dressing. Stable appearing wound at the lateral aspect of the right fourth toe with granular base and no erythema warmth or purulent drainage. MUSCULOSKELETAL: No pain to palpation right foot secondary to neuropathy. Tailor's bunion bilaterally and fifth hammertoe digit bilaterally. Status post right fifth toe amputation Data 07/14/24 04:14 07/14/24 04:14 Micro: Microbiology 07/11/24 07:43 Gram Stain - Final Toe - Right Pinky Wound Culture - Final Morganella morganii A&P Assessment and plan (1) Diabetes mellitus type 2 with complications, uncontrolled: (2) Gangrene of toe of right foot: Plan 54-year-old uncontrolled diabetic male, current everyday smoker presents with gangrene of the right fifth toe. Status post right fifth toe amputation secondary to gangrene performed 07/11/2024 Status post primary delayed closure right fifth toe amputation site performed 07/12/2024 Clean margins appreciated intraoperatively and level of amputation was curative of infection source control. Oral antibiotics at discharge per hospitalist No further surgical intervention for right foot anticipated at this time. Attestations 2 Medical Necessity Statement*: In ICU for medical management Coding Level of Care Code Acute Code for Chg Fwd Diagnoses Diabetes mellitus type 2 with complications, uncontrolled E11.8; E11.65 Gangrene of toe of right foot I96
[2024-07-14] MEDS: budesonide 0.5 mg/2 mL Neb INHALATION ×2 (08:01→20:40)
[2024-07-14] MEDS: ipratropium-albuterol 3 mL Neb INHALATION (08:01)
[2024-07-14 08:20] LABS: Glucose Point of Care 165 mg/dL (70-110)
--- NOTE | 2024-07-14 08:52 | USCV_ITS ---
Clarence Brandan Age: 54 Gender: M : 1970 Exam Date: 07/14/2024 14:45 Ordering Phys: Lion Cunningham MD Technologist: Brandon Ledbetter [place] [facility] [place]: afib BP: 105 / 66 HR: 72 Rhythm: Sinus Technical Quality: Adequate MEASUREMENTS (Male / Female) Normal Values 2D ECHO LV Diastolic Diameter PLAX 5.4 cm 4.2 - 5.9 / 3.9 - 5.3 cm IVS Diastolic Thickness 1.1 cm 0.6 - 1.0 / 0.6 - 0.9 cm IVS Systolic Thickness 1.8 cm LVPW Diastolic Thickness 1.5 cm 0.6 - 1.0 / 0.6 - 0.9 cm LVPW Systolic Thickness 1.8 cm LVOT Diameter 2.1 cm LV Ejection Fraction 2D Teich 64.7 % LV Ejection Fraction MOD 4C 60.6 % LV Ejection Fraction MOD 2C 58.0 % LV Ejection Fraction 2C AL 57.3 % LA Diameter 3.7 cm RA Systolic Volume 4C AL 31.5 ml RA Systolic Volume 4C MOD 32.4 ml LA Sys Volume AL 64.7 cm cubed LA Sys Volume Index AL 32.3 cm cubed/m squared Aorta at Sinotubular Diameter 2.5 cm IVC Diameter 1.6 cm M-MODE LA Ao Ratio MM 1.2 AV Cusp Separation MM 1.9 cm DOPPLER AV Peak Velocity 101.0 cm/s LVOT Peak Velocity 75.0 cm/s AV Area Cont Eq vti 2.5 cm squared AV Area Cont Eq pk 2.6 cm squared MV Peak Velocity 89.0 cm/s MV Area PHT 4.3 cm squared Mitral E to A Ratio 0.9 TV Peak Velocity 222.7 cm/s TR Peak Velocity 234.0 cm/s TR Peak Gradient 21.9 mmHg TR Mean Velocity 166.0 cm/s TR Mean Gradient 12.1 mmHg TR Velocity Time Integral 55.8 cm PV Peak Velocity 70.0 cm/s RV Ejection Time 0.3 s FINDINGS Left Ventricle Normal left ventricular size, systolic function and wall thickness, with no regional wall motion abnormalities. Left ventricular ejection fraction is estimated at 55 %. Grade I/IV diastolic dysfunction (abnormal relaxation filling pattern), normal to mildly elevated filling pressures. Right Ventricle The right ventricle is normal in size and function. RVSP could not be calculated due to incomplete tricuspid regurgitation velocity profile. Right Atrium The right atrium is normal in size. Left Atrium Moderately increased left atrial size. Mitral Valve Structurally normal mitral valve without significant stenosis or prolapse. There is no mitral regurgitation. Aortic Valve Moderate aortic valve calcification. No aortic valve stenosis. Trace aortic valve regurgitation. Tricuspid Valve Mild tricuspid valve regurgitation. Pulmonic Valve Structurally normal pulmonic valve without significant stenosis. There is no pulmonic regurgitation. Pericardium Normal pericardium without effusion. Aorta Normal ascending aorta dimension. IVC The inferior vena cava appears normal. CONCLUSIONS Normal left ventricular size, systolic function and wall thickness, with no regional wall motion abnormalities. Left ventricular ejection fraction is estimated at 55 %. Grade I/IV diastolic dysfunction (abnormal relaxation filling pattern), normal to mildly elevated filling pressures. The right ventricle is normal in size and function. RVSP could not be calculated due to incomplete tricuspid regurgitation velocity profile. Moderately increased left atrial size. Mild tricuspid valve regurgitation. There is no pericardial effusion. Right atrial pressure is around 5 mm of mercury. Jair Can MD (Electronically Signed) Final Date: 14 July 2024 17:43 S
[2024-07-14 09:06] LABS: Glucose Point of Care 191 mg/dL (70-110)
[2024-07-14] MEDS: metoprolol tartrate 25 mg Tablet PO ×2 (09:12→21:00)
[2024-07-14] MEDS: ciprofloxacin 400 MG/200 ML PREMIX 200 MG IV ×2 (09:20→20:59)
[2024-07-14 10:05] LABS: Glucose Point of Care 207 mg/dL (70-110)
--- NOTE | 2024-07-14 10:43 | P.PN_ITS ---
Subjective 2 Subjective: Patient seen and examined. He was having nausea and emesis. He is diaphoretic reports no abdominal pain, just bloating. He has not had a bowel movement for 6 days Vitals/I&O/Wt Last Vital Signs Temp 97.4 F L 07/14/24 08:00 Pulse 109 H 07/14/24 08:09 Resp 16 07/14/24 08:01 BP 103/68 07/14/24 08:00 Pulse Ox 98 07/14/24 08:01 O2 Del Method Nasal Cannula 07/14/24 08:01 O2 Flow Rate 2 07/14/24 08:01 07/13/24 07/14/24 07/14/24 22:59 06:59 14:59 Intake Total 2561.749 / 2576.816 1292.939 / 3869.755 128.333 / 128.333 Output Total 1300 / 2325 Balance 2561.749 / 1551.816 -7.061 / 1544.755 128.333 / 128.333 Weight last 48 hrs Weight 179 lb 4.8 oz Weight 180 lb 12.8 oz Physical Exam 2 Narrative: General: No acute distress, patient is nauseous, awake alert and oriented x 3 Abdomen: Soft, nondistended, appropriately tender Incisions intact without erythema or exudate Data 07/14/24 04:14 07/14/24 04:14 Micro: Microbiology 07/11/24 07:43 Gram Stain - Final Toe - Right Pinky Wound Culture - Final Morganella morganii A&P Assessment and plan (1) Calculus of gallbladder with cholecystitis: (2) Nausea & vomiting: (3) Intractable abdominal pain: (4) Constipation: Plan Postop day #2 status post laparoscopic cholecystectomy. There is a very large gallstone in the gallbladder with a very thin portion of the gallbladder inferior aspect of the fundus, near perforation Diet as tolerated 1 bottle magnesium citrate Medical management per primary Attestations 2 Medical Necessity Statement*: Per primary Coding Level of Care Code Acute Code for g Fwd Diagnoses Calculus of gallbladder with cholecystitis K80.10 Nausea & vomiting R11.2 Intractable abdominal pain R10.9 Constipation K59.00
[2024-07-14] MEDS: metroNIDAZOLE IV 500 MG/100 ML PREMIX 100 MG IV ×2 (11:12→20:00)
[2024-07-14] MEDS: morphine 4 mg/mL SDV 1 mL 2 MG IVP (11:19)
[2024-07-14] MEDS: citalopram 20 mg Tablet PO (11:22)
[2024-07-14] MEDS: aspirin 81 mg EC Tablet PO (11:22)
[2024-07-14 11:34] LABS: Glucose Point of Care 213 mg/dL (70-110)
[2024-07-14] MEDS: insulin lispro 100 unit/1 mL SUBCUT ×3 (13:15→21:39)
[2024-07-14] MEDS: magnesium citrate Btl 296 mL 150 ML PO (13:30)
--- NOTE | 2024-07-14 13:52 | ECG_ITS ---
[facility] Test Date: 2024-07-14 Pat Name: Brandan Lima Department: Room: ICU06 Gender: Male Wireless Architect: : 1970 Requested By: Shaniqua Archuleta Order Number: [id number] Reading MD: MITUL LOMBARDI Measurements Intervals Mason Rate: 71 P: 69 DE: 158 QRS: 28 QRSD: 92 T: 74 QT: 399 QTc: 435 Interpretive Statements SINUS RHYTHM LOW QRS VOLTAGE IN EXTREMITY LEADS [QRS DEFLECTION < 0.5 mV IN LIMB LEADS] NONSPECIFIC T-WAVE ABNORMALITY Compared to ECG 07/13/2024 00:56:57 T-wave abnormality now present Atrial fibrillation no longer present ST (T wave) deviation no longer present Electronically Signed On 07-16-2024 16:12:05 [employer] LINE CORE LAYER by MITUL LOMBARDI [id number]
--- NOTE | 2024-07-14 14:05 | P.PN_ITS ---
Subjective 2 Subjective: Complains of pain and tightness in the right upper quadrant. He is passing flatus. Yesterday had urinary retention which required a straight cath. Currently continues to be in A-fib with RVR heart rate 120s. Medications: Reviewed: Yes Vitals/I&O/Wt Last Vital Signs Temp 98.0 F 07/14/24 12:00 Pulse 135 H 07/14/24 12:00 Resp 13 07/14/24 12:00 BP 105/66 07/14/24 12:00 Pulse Ox 97 07/14/24 12:00 O2 Del Method Nasal Cannula 07/14/24 12:00 O2 Flow Rate 2 07/14/24 12:00 07/13/24 07/14/24 07/14/24 22:59 06:59 14:59 Intake Total 2561.749 / 2576.816 1292.939 / 3869.755 1430.483 / 1430.483 Output Total 1300 / 2325 Balance 2561.749 / 1551.816 -7.061 / 8640.624 9531.483 / 1430.483 Weight last 48 hrs Weight 81.329 kg Weight 82.01 kg Physical Exam 2 Narrative: General: No acute distress, AO x3 HEENT: PERRLA, pupils bilaterally equal and reactive, pallors not present Chest: Normal vesicular breath sounds, no added sounds, equal good air entry bilaterally CVS: S1-S2 regular, no murmurs, no tachycardia, no gallops, no rubs Abdomen: Soft, nontender, no organomegaly, bowel sounds present Neuro: No focal deficits, no facial deformity, AO x3, power 5/5 in all limbs Data 07/14/24 04:14 07/14/24 04:14 Micro: Microbiology 07/11/24 07:43 Gram Stain - Final Toe - Right Pinky Wound Culture - Final Morganella morganii A&P Assessment and plan (1) Nausea & vomiting: Presented with several days of nausea and vomiting. Nonbloody, nonbilious. No electrolyte derangements. Lipase not elevated. Gallbladder US showed cholelithiasis and some dilation of common bile duct. LFTs within normal limits. Patient had surgical consult Postoperative day #1 status post laparoscopic cholecystectomy No need for antibiotics for this per surgery (2) Diabetic wet gangrene of the foot: Wet gangrene of right fifth toe. No obvious surrounding cellulitis or signs of ascending infection. Podiatry consult appreciated 2 days s/p debridement Day #2 s/p surgical amputation of right fifth toe, day #1 status post closure As wound now growing gram-negative rods, will continue Cipro currently. Continue vancomycin currently (3) Diabetes mellitus type 2 with complications, uncontrolled: A1c 12.3. Has established complications including peripheral neuropathy and vascular disease. Sliding scale insulin. Carbohydrate controlled diet and long-acting insulin when not NPO. As his anion gap is elevated, will give him a dose of IV fluids. Likely secondary to nausea and vomiting. Check serum ketones. Potentially he may have DKA. Dose of Lantus now. (4) Chronic obstructive pulmonary disease, unspecified: Currently not requiring supplemental oxygen. Has inhalers at home but is noncompliant with using them. Has orders for budesonide BID, montelukast QPM, and DuoNebs PRN. Qualifiers: COPD type: unspecified COPD Qualified Code(s): J44.9 - Chronic obstructive pulmonary disease, unspecified (5) Angioedema of lips: Not associated with swelling of the throat or tongue. Patient is on lisinopril at home. Has received Benadryl, Solu-Medrol, Singulair, Famotidine, and Tylenol. Significantly improved. Discontinue Solu-Medrol and Benadryl Serial visual exams. Bedside monitor, intermediate care Added lisinopril as allergy Qualifiers: Encounter type: initial encounter Qualified Code(s): T78.3XXA - Angioneurotic edema, initial encounter Plan Atrial fibrillation for rapid ventricular rate Full dose anticoagulation Amiodarone initiated Metoprolol 5 mg IV x 1 Likely start oral metoprolol as well depending upon results of IV Will begin DVT prophylaxis after surgery. 07/14/2024. Patient continues to be in A-fib with RVR heart rate 130s. He is also anxious this morning. Complaining of abdominal discomfort and stiffness involving the upper abdomen. He is due to get mag citrate soon. No nausea or vomiting. Abdomen appears to be soft. Had urinary retention yesterday for which she had a straight cath. Currently bladder scan with 250 cc. Adding as needed alprazolam 0.5 mg twice daily. If heart rate continues to be uncontrolled we will plan to add digoxin today. Wound culture showing Morganella Mg I. Few GPC's also noted on Gram stain, no growth on cultures. Add metronidazole for anaerobic coverage for Recent abdominal surgery/cholecystitis. Leukocytosis with uptrend. Currently on full dose anticoagulation after discovery of A-fib RVR. Check troponin series given new A-fib RVR. Pending echocardiogram. DKA has now resolved. Discontinue insulin drip. Place patient on insulin sliding scale per medium dose protocol AC plus at bedtime. Attestations 2 Medical Necessity Statement*: Needs continued admission for amiodarone infusion, insulin drip to be discontinued, start overlap with subcutaneous insulin. Closely monitor for rate control, need for IV antibiotics Coding Level of Care Code Acute Code for Chg Fwd High MDM includes number and complexity of problems actively addressed during encounter, amount and/or complexity of data reviewed/ordered and described risk of complication, morbidity or mortality of management as documented Diagnoses Nausea & vomiting R11.2 Diabetic wet gangrene of the foot E11.52 Diabetes mellitus type 2 with complications, uncontrolled E11.8; E11.65 Chronic obstructive pulmonary disease, unspecified COPD type J44.9 COPD type: unspecified COPD Angioedema of lips T78.3XXA Encounter type: initial encounter
[2024-07-14 14:46] LABS: Lipase 8 U/L (13-60)
[2024-07-14 14:48] LABS: Troponin(5th) Baseline 11 ng/L (0-15)
[2024-07-14] MEDS: amiodarone 200 mg Tablet 400 MG PO (14:58)
--- NOTE | 2024-07-14 15:52 | ECG_ITS ---
[facility] Test Date: 2024-07-14 Pat Name: Brandan Lima Department: Room: ICU06 Gender: Male Head Baggage Porter: : 1970 Requested By: Shaniqua Archuleta Order Number: [id number] Reading MD: MITUL LOMBARDI Measurements Intervals Siren Rate: 67 P: 60 OK: 155 QRS: 27 QRSD: 96 T: 65 QT: 409 QTc: 433 Interpretive Statements SINUS RHYTHM Compared to ECG 07/14/2024 14:09:37 T-wave abnormality no longer present Electronically Signed On 07-16-2024 16:17:13 COMPLIANCE MANAGER by MITUL LOMBARDI [id number]
[2024-07-14 16:51] LABS: Troponin 5 2HR 12.88 ng/L (0-15); Troponin 5 2HR Delta 1.88 ABS# (0-10)
[2024-07-14 17:11] LABS: Glucose Point of Care 186 mg/dL (70-110)
[2024-07-14] MEDS: pantoprazole 40 mg SDV IVP (17:41)
--- NOTE | 2024-07-14 18:31 | PC.NURSE ---
noted increased residual urine with bladder scan, pt attempted to urinate with no success. contacted dr Archuleta. orders given to insert fuentes. fuentes insertion attempted. pt unable to tolerate. dr. archuleta notified orders given to attempt a straight cath or smaller catheter after allowing patient to rest.
[2024-07-14 19:01] LABS: Vancomycin Trough 18.9 ug/mL (10-15)
[2024-07-14 20:26] LABS: Troponin 5 6HR 12.93 ng/L (0-15); Troponin 5 6HR Delta 1.93 ng/L (0-12)
[2024-07-14] MEDS: lidocaine 2% Urojet 20 mL TOPICAL (20:50)
[2024-07-14] MEDS: oxyCODONE 5 mg IR Tab/Cap PO (21:00)
--- NOTE | 2024-07-14 21:15 | ECG_ITS ---
[facility] Date: 2024-07-14 Pat Name: Brandan Lima Department: Room: ICU06 Gender: Male Ways Operator: Luis : 1970 Requested By: Shaniqua Archuleta Order Number: [id number] Reading MD: MITUL LOMBARDI Measurements Intervals Deland Rate: 86 P: 77 MD: 155 QRS: 59 QRSD: 88 T: 73 QT: 389 QTc: 467 Interpretive Statements SINUS RHYTHM MODERATE ST DEPRESSION [0.05+ mV ST DEPRESSION] Compared to ECG 07/14/2024 15:59:42 ST (T wave) deviation now present Electronically Signed On 07-16-2024 16:17:05 WELDING SETTER by MITUL LOMBARDI [id number]
[2024-07-14 21:21] LABS: Glucose Point of Care 181 mg/dL (70-110)
[2024-07-15] VITALS (24 sets, daily range): BP systolic 117–180; BP diastolic 68–125; PULSE 68–93; RESP 4–22; TEMP 36.8–36.9; O2SAT 90–98
[2024-07-15] MEDS: enoxaparin 80 mg/0.8 mL Syringe SUBCUT ×2 (00:30→12:44)
[2024-07-15] MEDS: metoclopramide 5 mg/mL SDV 2 mL 10 MG IVP ×3 (00:30→17:25)
[2024-07-15] MEDS: VANCOMYCIN ADD-Vantage 1,000 MG in 0.9% NaCl ADD-Vantage 250 ML 250 MG IV (03:14)
[2024-07-15] MEDS: metroNIDAZOLE IV 500 MG/100 ML PREMIX 100 MG IV ×3 (03:14→21:07)
[2024-07-15 03:34] LABS: Basophils % 0.1 %; Eosinophils % 0.1 %; Hematocrit 44.2 % (37-53); Lymphocytes # 1.5 10^3/uL (0.8-4.8); Lymphocytes % 12.4 %; Mean Corpuscular HGB Conc 33.7 g/dL (30-55); Mean Corpuscular Hemoglobin 30.7 pg (27-33); Mean Corpuscular Volume 90.9 fl (82-101); Mean Platelet Volume 9.6 fL (7.4-10.4); Monocytes % 8.7 %; Neutrophils # 9.31 10^3/uL (1.8-7.7); Neutrophils % 78.4 %; Nucleated Red Blood Cells % 0 %; Platelet Count 292 10^3/cmm (157-399); Red Blood Count 4.86 10^6/uL (3.85-5.65); Red Cell Distribution Width 12.5 % (12.1-15.1); White Blood Count 11.89 10^3/uL (3.29-11.43)
[2024-07-15 03:52] LABS: Alanine Aminotransferase 36 U/L (0-41); Albumin Level 2.9 g/dL (3.5-5.2); Alkaline Phosphatase 83 U/L (40-130); Anion Gap 13.6 (5-19); Aspartate Amino Transferase 20 U/L (0-40); Blood Urea Nitrogen 10 mg/dL (6-20); Calcium 8.3 mg/dL (8.5-10.5); Carbon Dioxide 22 mmol/L (22-29); Chloride 106 mmol/L (98-107); Creatinine Clr Calc Pharmacy 149.2092; Globulin 2.1 g/dL (1.3-4.6); Glomerular Filtration Rate 140.4 mL/min (90-130); Glucose 164 mg/dL (65-115); Osmolality Calculated 289 mOsm/kg (285-295); Potassium 3.6 mmol/L (3.5-5.1); Sodium 138 mmol/L (136-145); Total Bilirubin 0.5 mg/dL (0.15-1.2)
[2024-07-15] MEDS: ipratropium-albuterol 3 mL Neb INHALATION (08:25)
[2024-07-15] MEDS: budesonide 0.5 mg/2 mL Neb INHALATION (08:25)
[2024-07-15] MEDS: ciprofloxacin 400 MG/200 ML PREMIX 200 MG IV ×2 (08:28→21:07)
[2024-07-15] MEDS: ondansetron 2 mg/ML SDV 2 mL 4 MG IVP ×2 (08:28→21:09)
[2024-07-15] MEDS: metoprolol tartrate 25 mg Tablet PO ×2 (08:29→21:06)
[2024-07-15] MEDS: citalopram 20 mg Tablet PO (08:29)
[2024-07-15] MEDS: aspirin 81 mg EC Tablet PO (08:29)
[2024-07-15] MEDS: amiodarone 200 mg Tablet 400 MG PO ×2 (08:29→17:25)
[2024-07-15] MEDS: insulin lispro 100 unit/1 mL SUBCUT ×3 (08:36→21:57)
[2024-07-15 08:58] LABS: Glucose Point of Care 170 mg/dL (70-110)
--- NOTE | 2024-07-15 09:14 | P.PN_ITS ---
Subjective 2 Subjective: Patient seen bedside this morning, endorses nausea, denies any pain at the right foot. Vitals/I&O/Wt Last Vital Signs Temp 98.5 F 07/15/24 04:00 Pulse 75 07/15/24 06:00 Resp 10 L 07/15/24 04:00 BP 153/88 07/15/24 04:00 Pulse Ox 95 07/15/24 04:00 O2 Del Method Room Air 07/15/24 03:00 O2 Flow Rate 2 07/14/24 22:00 07/14/24 07/15/24 07/15/24 22:59 06:59 14:59 Intake Total 800.000 / 2430.483 370 / 2800.483 Output Total 400 / 400 400 / 800 Balance 400.000 / 2030.483 -30 / 1999.483 Weight last 48 hrs Weight 176 lb Weight 179 lb 4.8 oz Physical Exam 2 Narrative: VASCULAR: Pedal pulses palpable dorsalis pedis and posterior tibial arteries bilaterally, delayed capillary refill time right fifth toe. NEUROLOGICAL: Absent protective sensation at the bilateral foot, tested with [place] Nneka monofilament. DERMATOLOGICAL: Postoperative dressing clean dry and intact without strikethrough bleeding right foot. No ascending erythema warmth or cellulitis at the right lower extremity from the right foot dressing. Stable appearing wound at the lateral aspect of the right fourth toe with granular base and no erythema warmth or purulent drainage. MUSCULOSKELETAL: No pain to palpation right foot secondary to neuropathy. Tailor's bunion bilaterally and fifth hammertoe digit bilaterally. Status post right fifth toe amputation Urinary Catheter Management: Bryan: Cath Placed During This Visit: yes Reason for Continuing Indwelling Catheter: Acute Urinary Retention or Obstruction Urinary Catheter Date of Insertion: 07/14/24 Urinary Catheter Time of Insertion: 20:55 Data 07/15/24 03:00 07/15/24 03:00 A&P Assessment and plan (1) Diabetes mellitus type 2 with complications, uncontrolled: (2) Gangrene of toe of right foot: Plan 54-year-old uncontrolled diabetic male, current everyday smoker presents with gangrene of the right fifth toe. Status post right fifth toe amputation secondary to gangrene performed 07/11/2024 Status post primary delayed closure right fifth toe amputation site performed 07/12/2024 Clean margins appreciated intraoperatively and level of amputation was curative of infection source control. Oral antibiotics at discharge per hospitalist No further surgical intervention for right foot anticipated at this time. Podiatry will continue to round, planning on postop dressing change tomorrow Attestations 2 Medical Necessity Statement*: Needs continued medical management. Coding Level of Care Code Acute Code for g Fwd Diagnoses Diabetes mellitus type 2 with complications, uncontrolled E11.8; E11.65 Gangrene of toe of right foot I96
--- NOTE | 2024-07-15 10:42 | XRR_ITS ---
PROCEDURE INFORMATION: Exam: XR Abdomen Exam date and time: 07/15/2024 3:08 PM Age: 54 years old Clinical indication: Abdominal pain; Prior surgery; Surgery date: 3-7 days post-operative; Surgery type: Cholecystectomy; Additional info: Ileus TECHNIQUE: Imaging protocol: Radiologic exam of the abdomen. Views: Frontal supine view of the abdomen. 1 View. COMPARISON: US gall bladder [id number] 07/11/2024 5:49 AM FINDINGS: Gastrointestinal tract: Mildly dilated small bowel loops in the central abdomen measuring up to 3.2 cm in caliber. Small to moderate stool throughout the colon. The stomach is moderately distended with air. Organs: Cholecystectomy clips. Bones/joints: Unremarkable. XR/XR abdomen 1V* [id number] IMPRESSION: Mildly dilated small bowel loops centrally could represent adynamic ileus versus small bowel obstruction. CT could be considered for further assessment.
--- NOTE | 2024-07-15 10:46 | P.PN_ITS ---
Subjective 2 Subjective: Says he had a good night overnight but does complain of abdominal discomfort this morning. Complains of nausea. No vomiting. He has been taking sips of grape juice and had a popsicle a little while ago. He was able to take some broth and keep it down but seems like that triggered the nausea. Complains of pain over the foot. DKA remains resolved. Converted to sinus rhythm yesterday evening. Hypertension is uncontrolled with systolic blood pressure 1 60-1 70 today. He had to have a bowel movement, passing gas. Medications: Reviewed: Yes Vitals/I&O/Wt Last Vital Signs Temp 98.5 F 07/15/24 04:00 Pulse 76 07/15/24 09:00 Resp 4 L 07/15/24 09:00 BP 170/85 07/15/24 09:00 Pulse Ox 90 07/15/24 09:00 O2 Del Method Room Air 07/15/24 08:25 O2 Flow Rate 2 07/14/24 22:00 07/14/24 07/15/24 07/15/24 22:59 06:59 14:59 Intake Total 800.000 / 2430.483 370 / 2800.483 200 / 200 Output Total 400 / 400 400 / 800 Balance 400.000 / 2030.483 -30 / 2000.483 200 / 200 Weight last 48 hrs Weight 79.832 kg Weight 81.329 kg Physical Exam 2 Narrative: General: Appears uncomfortable. HEENT: PERRLA, pupils bilaterally equal and reactive, pallors not present Chest: Normal vesicular breath sounds, no added sounds, equal good air entry bilaterally CVS: S1-S2 regular, no murmurs, no tachycardia, no gallops, no rubs Abdomen: Soft, nontender, no organomegaly, bowel sounds present Neuro: No focal deficits, no facial deformity, AO x3, power 5/5 in all limbs Urinary Catheter Management: Bryan: Cath Placed During This Visit: yes Reason for Continuing Indwelling Catheter: Acute Urinary Retention or Obstruction Urinary Catheter Date of Insertion: 07/14/24 Urinary Catheter Time of Insertion: 20:55 Data 07/15/24 03:00 07/15/24 03:00 A&P Assessment and plan (1) Nausea & vomiting: Presented with several days of nausea and vomiting. Nonbloody, nonbilious. No electrolyte derangements. Lipase not elevated. Gallbladder US showed cholelithiasis and some dilation of common bile duct. LFTs within normal limits. Patient had surgical consult Postoperative day #1 status post laparoscopic cholecystectomy No need for antibiotics for this per surgery (2) Diabetic wet gangrene of the foot: Wet gangrene of right fifth toe. No obvious surrounding cellulitis or signs of ascending infection. Podiatry consult appreciated 2 days s/p debridement Day #2 s/p surgical amputation of right fifth toe, day #1 status post closure As wound now growing gram-negative rods, will continue Cipro currently. Continue vancomycin currently (3) Diabetes mellitus type 2 with complications, uncontrolled: A1c 12.3. Has established complications including peripheral neuropathy and vascular disease. Sliding scale insulin. Carbohydrate controlled diet and long-acting insulin when not NPO. As his anion gap is elevated, will give him a dose of IV fluids. Likely secondary to nausea and vomiting. Check serum ketones. Potentially he may have DKA. Dose of Lantus now. (4) Chronic obstructive pulmonary disease, unspecified: Currently not requiring supplemental oxygen. Has inhalers at home but is noncompliant with using them. Has orders for budesonide BID, montelukast QPM, and DuoNebs PRN. Qualifiers: COPD type: unspecified COPD Qualified Code(s): J44.9 - Chronic obstructive pulmonary disease, unspecified (5) Angioedema of lips: Not associated with swelling of the throat or tongue. Patient is on lisinopril at home. Has received Benadryl, Solu-Medrol, Singulair, Famotidine, and Tylenol. Significantly improved. Discontinue Solu-Medrol and Benadryl Serial visual exams. Bedside monitor, intermediate care Added lisinopril as allergy Qualifiers: Encounter type: initial encounter Qualified Code(s): T78.3XXA - Angioneurotic edema, initial encounter Plan Atrial fibrillation for rapid ventricular rate Full dose anticoagulation Amiodarone initiated Metoprolol 5 mg IV x 1 Likely start oral metoprolol as well depending upon results of IV Will begin DVT prophylaxis after surgery. 07/14/2024. Patient continues to be in A-fib with RVR heart rate 130s. He is also anxious this morning. Complaining of abdominal discomfort and stiffness involving the upper abdomen. He is due to get mag citrate soon. No nausea or vomiting. Abdomen appears to be soft. Had urinary retention yesterday for which she had a straight cath. Currently bladder scan with 250 cc. Adding as needed alprazolam 0.5 mg twice daily. If heart rate continues to be uncontrolled we will plan to add digoxin today. Wound culture showing Morganella Mg I. Few GPC's also noted on Gram stain, no growth on cultures. Add metronidazole for anaerobic coverage for Recent abdominal surgery/cholecystitis. Leukocytosis with uptrend. Currently on full dose anticoagulation after discovery of A-fib RVR. Check troponin series given new A-fib RVR. Pending echocardiogram. DKA has now resolved. Discontinue insulin drip. Place patient on insulin sliding scale per medium dose protocol AC plus at bedtime. 07/15/2024 Bryan catheter was placed yesterday due to urinary retention. DKA remains resolved. Currently on insulin sliding scale with fingerstick range of 1 70-1 80. He had to pass stool. Passing flatus. X-ray abdomen to assess for ileus. Converted to sinus rhythm last evening. Currently rate is well-controlled between 70 to 80 bpm. Continue amiodarone and metoprolol 25 mg p.o. twice daily. Echocardiogram reviewed. Normal LVEF systolic function. LVEF of 55%. Grade 1 diastolic dysfunction. Normal to mildly elevated filling pressures with mild tricuspid valve regurgitation. IV fluids were discontinued yesterday. Discontinue IV vancomycin as cultures without evidence of MRSA or enterococci. Continue ciprofloxacin and metronidazole. Transfer from ICU to CSU Attestations 2 Medical Necessity Statement*: Continued admission for IV antibiotics, ileus, postop monitoring and care Coding Level of Care Code Acute Code for Chg Fwd High MDM includes number and complexity of problems actively addressed during encounter, amount and/or complexity of data reviewed/ordered and described risk of complication, morbidity or mortality of management as documented Diagnoses Nausea & vomiting R11.2 Diabetic wet gangrene of the foot E11.52 Diabetes mellitus type 2 with complications, uncontrolled E11.8; E11.65 Chronic obstructive pulmonary disease, unspecified COPD type J44.9 COPD type: unspecified COPD Angioedema of lips T78.3XXA Encounter type: initial encounter
[2024-07-15 11:59] LABS: Glucose Point of Care 187 mg/dL (70-110)
[2024-07-15] MEDS: lidocaine 1% 5 ML in potassium chloride premix 100 ML 52.5 ML IV (12:05)
[2024-07-15] MEDS: hyDRALAzine 20 mg/mL INJ 1 mL 5 MG IVP (12:05)
[2024-07-15 17:12] LABS: Glucose Point of Care 131 mg/dL (70-110)
[2024-07-15] MEDS: pantoprazole 40 mg SDV IVP (17:25)
[2024-07-15] MEDS: montelukast sodium 10 mg Tablet PO (17:25)
[2024-07-15] MEDS: oxyCODONE 5 mg IR Tab/Cap PO (21:06)
[2024-07-15 21:40] LABS: Glucose Point of Care 159 mg/dL (70-110)
[2024-07-16] VITALS (26 sets, daily range): BP systolic 109–179; BP diastolic 71–98; PULSE 65–79; RESP 1–31; TEMP 36.6–37.2; O2SAT 91–99
[2024-07-16] MEDS: enoxaparin 80 mg/0.8 mL Syringe SUBCUT ×2 (01:34→12:50)
[2024-07-16] MEDS: metroNIDAZOLE IV 500 MG/100 ML PREMIX 100 MG IV ×3 (02:30→20:19)
--- NOTE | 2024-07-16 06:20 | P.PN_ITS ---
Subjective 2 Subjective: Patient seen bedside this afternoon, endorses nausea, denies any pain at the right foot. Vitals/I&O/Wt Last Vital Signs Temp 97.8 F 07/16/24 03:00 Pulse 73 07/16/24 05:40 Resp 14 07/16/24 04:00 BP 148/83 07/16/24 04:00 Pulse Ox 94 07/16/24 04:00 O2 Del Method Room Air 07/16/24 03:00 O2 Flow Rate 2 07/14/24 22:00 07/15/24 07/15/24 07/16/24 14:59 22:59 06:59 Intake Total 405 / 405 350 / 755 120 / 875 Output Total 715 / 715 300 / 1015 Balance 405 / 405 -365 / 40 -180 / -140 Weight last 48 hrs Weight 180 lb 6.4 oz Weight 176 lb Physical Exam 2 Narrative: VASCULAR: Pedal pulses palpable dorsalis pedis and posterior tibial arteries bilaterally, delayed capillary refill time right fifth toe. NEUROLOGICAL: Absent protective sensation at the bilateral foot, tested with [place] monofilament. DERMATOLOGICAL: Postoperative dressing clean dry and intact without strikethrough bleeding right foot. No ascending erythema warmth or cellulitis at the right lower extremity from the right foot dressing. Stable appearing wound at the lateral aspect of the right fourth toe with granular base and no erythema warmth or purulent drainage. MUSCULOSKELETAL: No pain to palpation right foot secondary to neuropathy. Tailor's bunion bilaterally and fifth hammertoe digit bilaterally. Status post right fifth toe amputation Urinary Catheter Management: Rbyan: Cath Placed During This Visit: yes Reason for Continuing Indwelling Catheter: Acute Urinary Retention or Obstruction Urinary Catheter Date of Insertion: 07/14/24 Urinary Catheter Time of Insertion: 20:55 Data 07/16/24 07:24 07/16/24 07:24 Micro: Microbiology 07/11/24 05:34 Blood Culture - Final Blood NO GROWTH AFTER 5 DAYS 07/11/24 05:30 Blood Culture - Final Blood NO GROWTH AFTER 5 DAYS A&P Assessment and plan (1) Diabetes mellitus type 2 with complications, uncontrolled: (2) Gangrene of toe of right foot: Plan 54-year-old uncontrolled diabetic male, current everyday smoker presents with gangrene of the right fifth toe. Status post right fifth toe amputation secondary to gangrene performed 07/11/2024 Status post primary delayed closure right fifth toe amputation site performed 07/12/2024 Clean margins appreciated intraoperatively and level of amputation was curative of infection source control. Anticipate 1 week of oral antibiotics at discharge per hospitalist No further surgical intervention for right foot anticipated at this time. Dressing change performed this afternoon, incision is well-healing no clinical signs infection at the amputation site or surrounding soft tissue, right fourth toe wound is well-healing. Primary dressing of silver cell, rolled gauze and Coban. Ambulate with postop shoe to the right foot Keep current dressing intact, clean and dry until follow-up in podiatry clinic outpatient Attestations 2 Medical Necessity Statement*: ileus, persisting nausea post operatively Coding Level of Care Code Acute Code for [facility] Diagnoses Diabetes mellitus type 2 with complications, uncontrolled E11.8; E11.65 Gangrene of toe of right foot I96
[2024-07-16 07:52] LABS: Basophils % 0.1 %; Eosinophils % 0.1 %; Hematocrit 45.8 % (37-53); Lymphocytes # 1.2 10^3/uL (0.8-4.8); Lymphocytes % 14.5 %; Mean Corpuscular HGB Conc 32.3 g/dL (30-55); Mean Corpuscular Hemoglobin 30.3 pg (27-33); Mean Corpuscular Volume 93.7 fl (82-101); Mean Platelet Volume 9.4 fL (7.4-10.4); Monocytes # 0.6 10^3/uL (0.2-0.9); Monocytes % 7.2 %; Neutrophils # 6.16 10^3/uL (1.8-7.7); Neutrophils % 77.6 %; Nucleated Red Blood Cells % 0 %; Platelet Count 306 10^3/cmm (157-399); Red Blood Count 4.89 10^6/uL (3.85-5.65); Red Cell Distribution Width 12.6 % (12.1-15.1); White Blood Count 7.94 10^3/uL (3.29-11.43)
[2024-07-16] MEDS: ondansetron 2 mg/ML SDV 2 mL 4 MG IVP ×2 (07:52→18:03)
[2024-07-16 08:11] LABS: Alanine Aminotransferase 27 U/L (0-41); Albumin Level 2.9 g/dL (3.5-5.2); Alkaline Phosphatase 75 U/L (40-130); Aspartate Amino Transferase 17 U/L (0-40); Blood Urea Nitrogen 9 mg/dL (6-20); Calcium 8.5 mg/dL (8.5-10.5); Carbon Dioxide 18 mmol/L (22-29); Chloride 104 mmol/L (98-107); Creatinine Clr Calc Pharmacy 149.6066; Globulin 2.2 g/dL (1.3-4.6); Glomerular Filtration Rate 140.4 mL/min (90-130); Glucose 164 mg/dL (65-115); Osmolality Calculated 292 mOsm/kg (285-295); Sodium 140 mmol/L (136-145); Total Bilirubin 0.5 mg/dL (0.15-1.2); Total Protein 5.1 g/dL (6.6-8.7)
[2024-07-16] MEDS: aspirin 81 mg EC Tablet PO (08:11)
[2024-07-16] MEDS: citalopram 20 mg Tablet PO (08:12)
[2024-07-16] MEDS: metoprolol tartrate 25 mg Tablet PO (08:12)
[2024-07-16] MEDS: ciprofloxacin 400 MG/200 ML PREMIX 200 MG IV ×2 (08:13→22:54)
[2024-07-16] MEDS: amiodarone 200 mg Tablet 400 MG PO ×2 (08:13→17:52)
[2024-07-16 08:18] LABS: Glucose Point of Care 144 mg/dL (70-110)
[2024-07-16] MEDS: insulin lispro 100 unit/1 mL SUBCUT ×2 (08:19→12:49)
[2024-07-16] MEDS: metoclopramide 5 mg/mL SDV 2 mL 10 MG IVP (08:23)
[2024-07-16] MEDS: lactulose oral liq 20 gm/30 mL UDC 10 GM PO (10:55)
[2024-07-16] MEDS: metoclopramide 5 mg/mL SDV 2 mL IVP ×3 (10:56→22:54)
[2024-07-16] MEDS: sodium chloride 0.9% 1,000 ML 75 ML IV (10:57)
[2024-07-16 12:06] LABS: Glucose Point of Care 151 mg/dL (70-110)
--- NOTE | 2024-07-16 14:45 | PC.SOCIAL ---
IMM Update pg 2 of IMM updated and reviewed w/ patient. Copy provided and copy dated, initialed and placed in chart.
--- NOTE | 2024-07-16 15:36 | P.PN_ITS ---
Subjective 2 Subjective: Patient is still getting nauseous with no significant abdominal pain. Abdominal x-ray showed ileus Vitals/I&O/Wt Last Vital Signs Temp 98.9 F 07/16/24 13:00 Pulse 73 07/16/24 13:00 Resp 17 07/16/24 13:00 BP 147/82 07/16/24 13:00 Pulse Ox 98 07/16/24 13:00 O2 Del Method Room Air 07/16/24 13:00 O2 Flow Rate 2 07/14/24 22:00 07/16/24 07/16/24 07/16/24 06:59 14:59 22:59 Intake Total 120 / 875 300 / 300 Output Total 300 / 1015 350 / 350 Balance -180 / -140 -50 / -50 Weight last 48 hrs Weight 180 lb 6.4 oz Weight 176 lb Physical Exam 2 Narrative: General: No acute distress, patient is nauseous, awake alert and oriented x 3 Abdomen: Soft, nondistended, appropriately tender Incisions intact without erythema or exudate Urinary Catheter Management: Bryan: Cath Placed During This Visit: yes Reason for Continuing Indwelling Catheter: Acute Urinary Retention or Obstruction Urinary Catheter Date of Insertion: 07/14/24 Urinary Catheter Time of Insertion: 20:55 Data 07/16/24 07:24 07/16/24 07:24 Micro: Microbiology 07/11/24 05:34 Blood Culture - Final Blood NO GROWTH AFTER 5 DAYS 07/11/24 05:30 Blood Culture - Final Blood NO GROWTH AFTER 5 DAYS A&P Assessment and plan (1) Calculus of gallbladder with cholecystitis: (2) Nausea & vomiting: (3) Intractable abdominal pain: (4) Constipation: (5) Ileus: Plan Postop day #4 status post laparoscopic cholecystectomy. There is a very large gallstone in the gallbladder with a very thin portion of the gallbladder inferior aspect of the fundus, near perforation Reglan Ambulate Medical management per primary Attestations 2 Medical Necessity Statement*: Per primary Coding Level of Care Code 67595 Diagnoses Calculus of gallbladder with cholecystitis K80.10 Nausea & vomiting R11.2 Intractable abdominal pain R10.9 Constipation K59.00 Ileus K56.7
--- NOTE | 2024-07-16 17:32 | P.PN_ITS ---
Subjective 2 Subjective: X-ray of the abdomen completed yesterday showed ileus. Patient is complaining of nausea however does appear to be more comfortable compared to yesterday. Leukocytosis is now resolved. He remains afebrile. Ambulated in the hallway today Medications: Reviewed: Yes Vitals/I&O/Wt Last Vital Signs Temp 99 F 07/16/24 16:00 Pulse 68 07/16/24 16:00 Resp 13 07/16/24 16:00 BP 150/78 07/16/24 16:00 Pulse Ox 93 07/16/24 16:00 O2 Del Method Room Air 07/16/24 16:00 O2 Flow Rate 2 07/14/24 22:00 07/16/24 07/16/24 07/16/24 06:59 14:59 22:59 Intake Total 120 / 875 300 / 300 Output Total 300 / 1015 450 / 450 100 / 550 Balance -180 / -140 -150 / -150 -100 / -250 Weight last 48 hrs Weight 81.828 kg Weight 79.832 kg Physical Exam 2 Narrative: General: No acute distress HEENT: PERRLA, pupils bilaterally equal and reactive, pallors not present Chest: Normal vesicular breath sounds, no added sounds, equal good air entry bilaterally CVS: S1-S2 regular, no murmurs, no tachycardia, no gallops, no rubs Abdomen: Soft, nontender, no organomegaly, bowel sounds present Neuro: No focal deficits, no facial deformity, AO x3, power 5/5 in all limbs Urinary Catheter Management: Bryan: Cath Placed During This Visit: yes Reason for Continuing Indwelling Catheter: Acute Urinary Retention or Obstruction Urinary Catheter Date of Insertion: 07/14/24 Urinary Catheter Time of Insertion: 20:55 Data 07/16/24 07:24 07/16/24 07:24 Micro: Microbiology 07/11/24 05:34 Blood Culture - Final Blood NO GROWTH AFTER 5 DAYS 07/11/24 05:30 Blood Culture - Final Blood NO GROWTH AFTER 5 DAYS A&P Assessment and plan (1) Nausea & vomiting: Presented with several days of nausea and vomiting. Nonbloody, nonbilious. No electrolyte derangements. Lipase not elevated. Gallbladder US showed cholelithiasis and some dilation of common bile duct. LFTs within normal limits. Patient had surgical consult Postoperative day #1 status post laparoscopic cholecystectomy No need for antibiotics for this per surgery (2) Diabetic wet gangrene of the foot: Wet gangrene of right fifth toe. No obvious surrounding cellulitis or signs of ascending infection. Podiatry consult appreciated 2 days s/p debridement Day #2 s/p surgical amputation of right fifth toe, day #1 status post closure As wound now growing gram-negative rods, will continue Cipro currently. Continue vancomycin currently (3) Diabetes mellitus type 2 with complications, uncontrolled: A1c 12.3. Has established complications including peripheral neuropathy and vascular disease. Sliding scale insulin. Carbohydrate controlled diet and long-acting insulin when not NPO. As his anion gap is elevated, will give him a dose of IV fluids. Likely secondary to nausea and vomiting. Check serum ketones. Potentially he may have DKA. Dose of Lantus now. (4) Chronic obstructive pulmonary disease, unspecified: Currently not requiring supplemental oxygen. Has inhalers at home but is noncompliant with using them. Has orders for budesonide BID, montelukast QPM, and DuoNebs PRN. Qualifiers: COPD type: unspecified COPD Qualified Code(s): J44.9 - Chronic obstructive pulmonary disease, unspecified (5) Angioedema of lips: Not associated with swelling of the throat or tongue. Patient is on lisinopril at home. Has received Benadryl, Solu-Medrol, Singulair, Famotidine, and Tylenol. Significantly improved. Discontinue Solu-Medrol and Benadryl Serial visual exams. Bedside monitor, intermediate care Added lisinopril as allergy Qualifiers: Encounter type: initial encounter Qualified Code(s): T78.3XXA - Angioneurotic edema, initial encounter Plan Atrial fibrillation for rapid ventricular rate Full dose anticoagulation Amiodarone initiated Metoprolol 5 mg IV x 1 Likely start oral metoprolol as well depending upon results of IV Will begin DVT prophylaxis after surgery. 07/14/2024. Patient continues to be in A-fib with RVR heart rate 130s. He is also anxious this morning. Complaining of abdominal discomfort and stiffness involving the upper abdomen. He is due to get mag citrate soon. No nausea or vomiting. Abdomen appears to be soft. Had urinary retention yesterday for which she had a straight cath. Currently bladder scan with 250 cc. Adding as needed alprazolam 0.5 mg twice daily. If heart rate continues to be uncontrolled we will plan to add digoxin today. Wound culture showing Morganella Mg I. Few GPC's also noted on Gram stain, no growth on cultures. Add metronidazole for anaerobic coverage for Recent abdominal surgery/cholecystitis. Leukocytosis with uptrend. Currently on full dose anticoagulation after discovery of A-fib RVR. Check troponin series given new A-fib RVR. Pending echocardiogram. DKA has now resolved. Discontinue insulin drip. Place patient on insulin sliding scale per medium dose protocol AC plus at bedtime. 07/15/2024 Bryan catheter was placed yesterday due to urinary retention. DKA remains resolved. Currently on insulin sliding scale with fingerstick range of 1 70-1 80. He had to pass stool. Passing flatus. X-ray abdomen to assess for ileus. Converted to sinus rhythm last evening. Currently rate is well-controlled between 70 to 80 bpm. Continue amiodarone and metoprolol 25 mg p.o. twice daily. Echocardiogram reviewed. Normal LVEF systolic function. LVEF of 55%. Grade 1 diastolic dysfunction. Normal to mildly elevated filling pressures with mild tricuspid valve regurgitation. IV fluids were discontinued yesterday. Discontinue IV vancomycin as cultures without evidence of MRSA or enterococci. Continue ciprofloxacin and metronidazole. Transfer from ICU to CSU 07/16/2024 Abdominal exam is benign. Patient complains of nausea. States he is passing some flatus but is yet to have a bowel movement. Added lactulose. Poor p.o. intake therefore resuming IV fluids with normal saline at 75 cc an hour. Closely monitored for hypervolemia. Changed Reglan to 5 mg IV every 6 hours as a standing medication. If ileus continues to worsen, may need placement of an NG tube to suction, repeat imaging. A-fib continues to be resolved. DKA continues to be resolved. Anion gap at 22 today likely secondary to dehydration. Fingerstick is well-controlled today. Continue clear liquid diet today.encourage ambulation Attestations 2 Medical Necessity Statement*: ileus, persisting nausea post operatively Coding Level of Care Code Acute Code for Chg Fwd Moderate MDM includes number and complexity of problems actively addressed during encounter, amount and/or complexity of data reviewed/ordered and described risk of complication, morbidity or mortality of management as documented Diagnoses Nausea & vomiting R11.2 Diabetic wet gangrene of the foot E11.52 Diabetes mellitus type 2 with complications, uncontrolled E11.8; E11.65 Chronic obstructive pulmonary disease, unspecified COPD type J44.9 COPD type: unspecified COPD Angioedema of lips T78.3XXA Encounter type: initial encounter
[2024-07-16] MEDS: montelukast sodium 10 mg Tablet PO (17:52)
[2024-07-16] MEDS: pantoprazole 40 mg SDV IVP (17:52)
[2024-07-16 18:11] LABS: Glucose Point of Care 127 mg/dL (70-110)
--- NOTE | 2024-07-16 18:46 | PC.NURSE ---
Shift SUmmary: uneventful shift Up to a recliner for almost the whole day. Walked outside of room after breakfast, lunch, and dinner. About 30 feet each time, patient seems to do better each time. Bowel sounds are hypoactive and distant sounding. Patient is occasionally passing gas, but no stools. Frequently burping, but less so as the day has gone on. Reglan changed to scheduled, 1000mL of NS given.
[2024-07-16 20:54] LABS: Glucose Point of Care 141 mg/dL (70-110)
[2024-07-17] VITALS (17 sets, daily range): BP systolic 100–178; BP diastolic 62–95; PULSE 67–84; RESP 3–18; TEMP 36.7–36.9; O2SAT 94–98
[2024-07-17] MEDS: enoxaparin 80 mg/0.8 mL Syringe SUBCUT ×2 (02:27→12:43)
[2024-07-17] MEDS: metroNIDAZOLE IV 500 MG/100 ML PREMIX 100 MG IV ×3 (03:29→20:56)
[2024-07-17] MEDS: metoclopramide 5 mg/mL SDV 2 mL IVP ×4 (04:41→23:00)
--- NOTE | 2024-07-17 07:05 | PC.NURSE ---
Pt complained consistently of nausea throughout shift, offered PRN Zofran but pt refused. Spoke with Dr. Real and made aware of complaints, no new orders. Reported that pt refused/was unable to take PM amio, singular, and metoprolol, no new orders and remained in sinus rhythm.
[2024-07-17 07:56] LABS: Glucose Point of Care 138 mg/dL (70-110)
[2024-07-17] MEDS: ciprofloxacin 400 MG/200 ML PREMIX 200 MG IV ×2 (08:16→22:00)
[2024-07-17] MEDS: ondansetron 2 mg/ML SDV 2 mL 4 MG IVP (08:16)
[2024-07-17] MEDS: ALPRAZolam 0.5 mg Tablet PO (08:56)
--- NOTE | 2024-07-17 09:57 | P.PN_ITS ---
Subjective 2 Subjective: Patient seen and examined. Continues to have intractable nausea and vomiting. Reports that he has not had a bowel movement in a week Vitals/I&O/Wt Last Vital Signs Temp 98.4 F 07/17/24 00:00 Pulse 77 07/17/24 08:36 Resp 18 07/17/24 08:36 BP 178/95 07/17/24 06:00 Pulse Ox 96 07/17/24 08:36 O2 Del Method Room Air 07/17/24 08:36 O2 Flow Rate 2 07/14/24 22:00 07/16/24 07/17/24 07/17/24 22:59 06:59 14:59 Intake Total 1220 / 1520 260 / 1780 100 / 100 Output Total 100 / 550 950 / 1500 Balance 1120 / 970 -690 / 280 100 / 100 Weight last 48 hrs Weight 182 lb 15.739 oz Weight 180 lb 6.4 oz Physical Exam 2 Narrative: General: No acute distress, patient is nauseous, awake alert and oriented x 3 Abdomen: Soft, nondistended, appropriately tender Incisions intact without erythema or exudate Urinary Catheter Management: Bryan: Cath Placed During This Visit: yes Reason for Continuing Indwelling Catheter: Accurate Measurement of Urinary Output in Critically Ill Patients Urinary Catheter Date of Insertion: 07/14/24 Urinary Catheter Time of Insertion: 20:55 Data 07/16/24 07:24 07/16/24 07:24 Micro: Microbiology 07/11/24 05:34 Blood Culture - Final Blood NO GROWTH AFTER 5 DAYS 07/11/24 05:30 Blood Culture - Final Blood NO GROWTH AFTER 5 DAYS A&P Assessment and plan (1) Calculus of gallbladder with cholecystitis: (2) Nausea & vomiting: (3) Intractable abdominal pain: (4) Constipation: (5) Ileus: Plan Postop day #5 status post laparoscopic cholecystectomy. There is a very large gallstone in the gallbladder with a very thin portion of the gallbladder inferior aspect of the fundus, near perforation Reglan Magnesium citrate CT abdomen pelvis Ambulate Medical management per primary Attestations 2 Medical Necessity Statement*: Per primary Coding Level of Care Code 93115 Diagnoses Calculus of gallbladder with cholecystitis K80.10 Nausea & vomiting R11.2 Intractable abdominal pain R10.9 Constipation K59.00 Ileus K56.7
[2024-07-17] MEDS: scopolamine 1.5 Patch 1 PATCH TRANSDERMA (10:48)
[2024-07-17] MEDS: citalopram 20 mg Tablet PO (10:54)
[2024-07-17] MEDS: amiodarone 200 mg Tablet 400 MG PO (10:54)
[2024-07-17] MEDS: metoprolol tartrate 25 mg Tablet PO (10:54)
[2024-07-17] MEDS: aspirin 81 mg EC Tablet PO (10:55)
--- NOTE | 2024-07-17 11:00 | P.PN_ITS ---
Subjective 2 Subjective: continues to have persistent nausea. Denies abdominal pain. NO bm yet, passing flatus. Medications: Reviewed: Yes Vitals/I&O/Wt Last Vital Signs Temp 98.3 F 07/17/24 16:00 Pulse 68 07/17/24 16:00 Resp 12 07/17/24 16:00 BP 143/79 07/17/24 16:00 Pulse Ox 98 07/17/24 16:00 O2 Del Method Room Air 07/17/24 14:00 O2 Flow Rate 2 07/14/24 22:00 07/17/24 07/17/24 07/17/24 06:59 14:59 22:59 Intake Total 260 / 1780 750 / 750 Output Total 950 / 1500 Balance -690 / 280 750 / 750 Weight last 48 hrs Weight 83 kg Weight 81.828 kg Physical Exam 2 Narrative: General: No acute distress HEENT: PERRLA, pupils bilaterally equal and reactive, pallors not present Chest: Normal vesicular breath sounds, no added sounds, equal good air entry bilaterally CVS: S1-S2 regular, no murmurs, no tachycardia, no gallops, no rubs Abdomen: Soft, nontender, no organomegaly, bowel sounds present Neuro: No focal deficits, no facial deformity, AO x3, power 5/5 in all limbs Urinary Catheter Management: Bryan: Cath Placed During This Visit: yes Reason for Continuing Indwelling Catheter: Accurate Measurement of Urinary Output in Critically Ill Patients Urinary Catheter Date of Insertion: 07/14/24 Urinary Catheter Time of Insertion: 20:55 Data 07/16/24 07:24 07/16/24 07:24 A&P Assessment and plan (1) Nausea & vomiting: Presented with several days of nausea and vomiting. Nonbloody, nonbilious. No electrolyte derangements. Lipase not elevated. Gallbladder US showed cholelithiasis and some dilation of common bile duct. LFTs within normal limits. Patient had surgical consult Postoperative day #1 status post laparoscopic cholecystectomy No need for antibiotics for this per surgery (2) Diabetic wet gangrene of the foot: Wet gangrene of right fifth toe. No obvious surrounding cellulitis or signs of ascending infection. Podiatry consult appreciated 2 days s/p debridement Day #2 s/p surgical amputation of right fifth toe, day #1 status post closure As wound now growing gram-negative rods, will continue Cipro currently. Continue vancomycin currently (3) Diabetes mellitus type 2 with complications, uncontrolled: A1c 12.3. Has established complications including peripheral neuropathy and vascular disease. Sliding scale insulin. Carbohydrate controlled diet and long-acting insulin when not NPO. As his anion gap is elevated, will give him a dose of IV fluids. Likely secondary to nausea and vomiting. Check serum ketones. Potentially he may have DKA. Dose of Lantus now. (4) Chronic obstructive pulmonary disease, unspecified: Currently not requiring supplemental oxygen. Has inhalers at home but is noncompliant with using them. Has orders for budesonide BID, montelukast QPM, and DuoNebs PRN. Qualifiers: COPD type: unspecified COPD Qualified Code(s): J44.9 - Chronic obstructive pulmonary disease, unspecified (5) Angioedema of lips: Not associated with swelling of the throat or tongue. Patient is on lisinopril at home. Has received Benadryl, Solu-Medrol, Singulair, Famotidine, and Tylenol. Significantly improved. Discontinue Solu-Medrol and Benadryl Serial visual exams. Bedside monitor, intermediate care Added lisinopril as allergy Qualifiers: Encounter type: initial encounter Qualified Code(s): T78.3XXA - Angioneurotic edema, initial encounter Plan Atrial fibrillation for rapid ventricular rate Full dose anticoagulation Amiodarone initiated Metoprolol 5 mg IV x 1 Likely start oral metoprolol as well depending upon results of IV Will begin DVT prophylaxis after surgery. 07/14/2024. Patient continues to be in A-fib with RVR heart rate 130s. He is also anxious this morning. Complaining of abdominal discomfort and stiffness involving the upper abdomen. He is due to get mag citrate soon. No nausea or vomiting. Abdomen appears to be soft. Had urinary retention yesterday for which she had a straight cath. Currently bladder scan with 250 cc. Adding as needed alprazolam 0.5 mg twice daily. If heart rate continues to be uncontrolled we will plan to add digoxin today. Wound culture showing Morganella Mg I. Few GPC's also noted on Gram stain, no growth on cultures. Add metronidazole for anaerobic coverage for Recent abdominal surgery/cholecystitis. Leukocytosis with uptrend. Currently on full dose anticoagulation after discovery of A-fib RVR. Check troponin series given new A-fib RVR. Pending echocardiogram. DKA has now resolved. Discontinue insulin drip. Place patient on insulin sliding scale per medium dose protocol AC plus at bedtime. 07/15/2024 Bryan catheter was placed yesterday due to urinary retention. DKA remains resolved. Currently on insulin sliding scale with fingerstick range of 1 70-1 80. He had to pass stool. Passing flatus. X-ray abdomen to assess for ileus. Converted to sinus rhythm last evening. Currently rate is well-controlled between 70 to 80 bpm. Continue amiodarone and metoprolol 25 mg p.o. twice daily. Echocardiogram reviewed. Normal LVEF systolic function. LVEF of 55%. Grade 1 diastolic dysfunction. Normal to mildly elevated filling pressures with mild tricuspid valve regurgitation. IV fluids were discontinued yesterday. Discontinue IV vancomycin as cultures without evidence of MRSA or enterococci. Continue ciprofloxacin and metronidazole. Transfer from ICU to [facility] 07/16/2024 Abdominal exam is benign. Patient complains of nausea. States he is passing some flatus but is yet to have a bowel movement. Added lactulose. Poor p.o. intake therefore resuming IV fluids with normal saline at 75 cc an hour. Closely monitored for hypervolemia. Changed Reglan to 5 mg IV every 6 hours as a standing medication. If ileus continues to worsen, may need placement of an NG tube to suction, repeat imaging. A-fib continues to be resolved. DKA continues to be resolved. Anion gap at 22 today likely secondary to dehydration. Fingerstick is well-controlled today. Continue clear liquid diet today.encourage ambulation 07/17/2023 continues to complain of persisting nausea. Will try scopolamine patch and assess for response. Still no BM. Abdominal exam is without focal guarding or tenderness. No fever. Leukocytosis remains resolved. Lipase normal. DKA and A fib remain resolved. Will check CT abdomen to assess for SBO or other post op complications. Alternate differential is that of gastroparesis. encourage ambulation. PT/Ot assessment to assist with appropriate disposition planning. Attestations 2 Medical Necessity Statement*: awaiting resolution of ileus , appropriate d/c planning, CT abdomen today. Coding Level of Care Code Acute Code for Chg Fwd Moderate MDM includes number and complexity of problems actively addressed during encounter, amount and/or complexity of data reviewed/ordered and described risk of complication, morbidity or mortality of management as documented Diagnoses Nausea & vomiting R11.2 Diabetic wet gangrene of the foot E11.52 Diabetes mellitus type 2 with complications, uncontrolled E11.8; E11.65 Chronic obstructive pulmonary disease, unspecified COPD type J44.9 COPD type: unspecified COPD Angioedema of lips T78.3XXA Encounter type: initial encounter
--- NOTE | 2024-07-17 11:19 | CTR_ITS ---
PROCEDURE INFORMATION: Exam: CT Abdomen And Pelvis Without Contrast Exam date and time: 07/17/2024 11:29 AM Age: 54 years old Clinical indication: Constipation and nausea and vomiting; Prior surgery; Surgery date: 6+ months; Surgery type: Gb, hernia; Additional info: Assess for sbo/obstrcution TECHNIQUE: Imaging protocol: Computed tomography of the abdomen and pelvis without contrast. Radiation optimization: All CT scans at this facility use at least one of these dose optimization techniques: automated exposure control; mA and/or kV adjustment per patient size (includes targeted exams where dose is matched to clinical indication); or iterative reconstruction. COMPARISON: CR (ABDOMEN, ) 07/15/2024 3:08 PM RADIATION DOSE METRICS: Total DLP (mGy-cm): 585.12 FINDINGS: Lungs: Right posterior pulmonary partial passive atelectasis. Pleural spaces: Small bilateral pleural effusions. Liver: Normal. No mass. Gallbladder and biliary ducts: The gallbladder is surgically absent, with metallic clips in the gallbladder fossa. No extrahepatic biliary ductal dilatation or calculus. Pancreas: Moderate pancreatic atrophy. No mass or ductal dilatation. Spleen: The spleen demonstrates several small calcifications consistent with healed granulomatous disease. Adrenal glands: Normal. No mass. Kidneys and ureters: Normal. No hydronephrosis. Stomach and bowel: There is mildly increased fluid noted in the ascending and transverse colon. Sigmoid and descending colonic diverticula are present without evidence of diverticulitis. No specific evidence of bowel obstruction. Appendix: The vermiform appendix is normal. Intraperitoneal space: Upper abdominal pneumoperitoneum. Moderate posterior pelvic peritoneal fluid (14 Hounsfield units). Vasculature: Right pelvic calcified phleboliths. Lymph nodes: No enlarged lymph nodes. Urinary bladder: The urinary bladder is drained by a Bryan catheter. Reproductive: The prostate gland is enlarged measuring 5.2 cm transverse dimension, with nonspecific parenchymal calcifications. Bones/joints: Unremarkable. No acute fracture. Soft tissues: Paraumbilical soft tissue emphysema. A small paraumbilical hernia containing only abdominal fat is noted. CT/CT abdomen pelvis wo con [id number] IMPRESSION: 1. Upper abdominal pneumoperitoneum. 2. Moderate posterior pelvic peritoneal fluid. 3. Prior cholecystectomy. 4. Increased right abdominal colonic fluid consistent with any diarrheal illness. Clinical correlation is recommended. 5. Diverticulosis. 6. Prostatic hypertrophy with chronic calcific prostatitis. 7. Small bilateral pleural effusions.
[2024-07-17 12:28] LABS: Glucose Point of Care 183 mg/dL (70-110)
[2024-07-17] MEDS: insulin lispro 100 unit/1 mL SUBCUT ×2 (12:43→17:42)
[2024-07-17 17:26] LABS: Glucose Point of Care 159 mg/dL (70-110)
[2024-07-17] MEDS: pantoprazole 40 mg SDV IVP (17:42)
--- NOTE | 2024-07-17 20:10 | PC.NURSE ---
Shift summary: He was nauseated this am. Zofran admin then half hour later Xanax PO admin. He was reluctant to get out of bed around 1000, but he did. He was able to take oral meds crushed in applesauce, except for the lactulose which he refused. He ambulate about 20 ft with nurse this am. Belching and flatulence noted. Scopolamine patch started this am. There where no more complaints of nausea after patch. He sat up in chair until about 1600. He did ambulate with PT. Pt has been reluctant to do much moving today. Flatulence noted throughout shift. Pt has been reluctant to eat his clear liquid diet, but he did request ice crean and a chocolate shake. Dr Geremias cheng'd Chocolate Ensure and ice cream. He has had 2 ice creams today, part of an Ensure and ice tea today. Pt refused his evening oral medications. He stated I did not take them last night and I am ok ,so I do not think I need them. Explained the purpose and reasoning for Amiodarone, he continued to refuse. 750 ml of clear yellow urine noted this shift. NO BMs today, but copious amounts of flatulence.
[2024-07-17 21:03] LABS: Glucose Point of Care 133 mg/dL (70-110)
[2024-07-18] VITALS (14 sets, daily range): BP systolic 104–170; BP diastolic 63–86; PULSE 69–83; RESP 10–20; TEMP 36.2–37.2; O2SAT 94–98
[2024-07-18] MEDS: enoxaparin 80 mg/0.8 mL Syringe SUBCUT ×2 (00:48→13:31)
[2024-07-18 04:18] LABS: Eosinophils % 0.3 %; Hematocrit 43.6 % (37-53); Lymphocytes # 1.4 10^3/uL (0.8-4.8); Mean Corpuscular HGB Conc 33.9 g/dL (30-55); Mean Corpuscular Hemoglobin 30.3 pg (27-33); Mean Corpuscular Volume 89.3 fl (82-101); Mean Platelet Volume 8.9 fL (7.4-10.4); Monocytes # 0.8 10^3/uL (0.2-0.9); Monocytes % 8.1 %; Neutrophils # 7.13 10^3/uL (1.8-7.7); Neutrophils % 76.3 %; Nucleated Red Blood Cells % 0 %; Platelet Count 298 10^3/cmm (157-399); Red Blood Count 4.88 10^6/uL (3.85-5.65); Red Cell Distribution Width 12.4 % (12.1-15.1); White Blood Count 9.35 10^3/uL (3.29-11.43)
[2024-07-18] MEDS: metroNIDAZOLE IV 500 MG/100 ML PREMIX 100 MG IV ×2 (04:30→12:35)
[2024-07-18 04:40] LABS: Alanine Aminotransferase 21 U/L (0-41); Albumin Level 2.8 g/dL (3.5-5.2); Alkaline Phosphatase 63 U/L (40-130); Anion Gap 15.4 (5-19); Aspartate Amino Transferase 15 U/L (0-40); Blood Urea Nitrogen 6 mg/dL (6-20); Calcium 8.4 mg/dL (8.5-10.5); Carbon Dioxide 22 mmol/L (22-29); Chloride 104 mmol/L (98-107); Creatinine Clr Calc Pharmacy 150.5398; Globulin 2.2 g/dL (1.3-4.6); Glomerular Filtration Rate 140.4 mL/min (90-130); Glucose 148 mg/dL (65-115); Magnesium 1.9 mg/dL (1.7-2.3); Osmolality Calculated 286 mOsm/kg (285-295); Potassium 3.4 mmol/L (3.5-5.1); Sodium 138 mmol/L (136-145); Total Bilirubin 0.4 mg/dL (0.15-1.2)
[2024-07-18] MEDS: metoclopramide 5 mg/mL SDV 2 mL IVP ×4 (05:14→22:56)
[2024-07-18] MEDS: amiodarone 200 mg Tablet 400 MG PO ×2 (08:09→17:38)
[2024-07-18] MEDS: ciprofloxacin 400 MG/200 ML PREMIX 200 MG IV ×2 (08:11→22:56)
[2024-07-18] MEDS: ondansetron 2 mg/ML SDV 2 mL 4 MG IVP (08:47)
--- NOTE | 2024-07-18 08:50 | P.PN_ITS ---
Subjective 2 Subjective: Patient seen bedside this afternoon, endorses nausea, denies any pain at the right foot. Vitals/I&O/Wt Last Vital Signs Temp 98.9 F 07/18/24 08:00 Pulse 71 07/18/24 08:00 Resp 16 07/18/24 08:00 BP 112/68 07/18/24 08:00 Pulse Ox 94 07/18/24 08:00 O2 Del Method Room Air 07/18/24 08:00 O2 Flow Rate 2 07/14/24 22:00 07/17/24 07/18/24 07/18/24 22:59 06:59 14:59 Intake Total 330 / 1170 300 / 1470 100 / 100 Output Total 750 / 750 450 / 1200 Balance -420 / 420 -150 / 270 100 / 100 Weight last 48 hrs Weight 180 lb 12.465 oz Weight 182 lb 15.739 oz Physical Exam 2 Narrative: VASCULAR: Pedal pulses palpable dorsalis pedis and posterior tibial arteries bilaterally, delayed capillary refill time right fifth toe. NEUROLOGICAL: Absent protective sensation at the bilateral foot, tested with [place] monofilament. DERMATOLOGICAL: Postoperative dressing clean dry and intact without strikethrough bleeding right foot. No ascending erythema warmth or cellulitis at the right lower extremity from the right foot dressing. Stable appearing wound at the lateral aspect of the right fourth toe with granular base and no erythema warmth or purulent drainage. MUSCULOSKELETAL: No pain to palpation right foot secondary to neuropathy. Tailor's bunion bilaterally and fifth hammertoe digit bilaterally. Status post right fifth toe amputation Urinary Catheter Management: Brayn: Cath Placed During This Visit: yes Reason for Continuing Indwelling Catheter: Accurate Measurement of Urinary Output in Critically Ill Patients Urinary Catheter Date of Insertion: 07/14/24 Urinary Catheter Time of Insertion: 20:55 Data 07/18/24 04:07 07/18/24 04:07 A&P Assessment and plan (1) Diabetes mellitus type 2 with complications, uncontrolled: (2) Gangrene of toe of right foot: Plan 54-year-old uncontrolled diabetic male, current everyday smoker presents with gangrene of the right fifth toe. Status post right fifth toe amputation secondary to gangrene performed 07/11/2024 Status post primary delayed closure right fifth toe amputation site performed 07/12/2024 Clean margins appreciated intraoperatively and level of amputation was curative of infection source control. No further surgical intervention for right foot anticipated at this time. Ambulate with postop shoe to the right foot Has been receiving antibiotics since 07/12/2024, not anticipating any antibiotics at discharge in regards to his right foot amputation site, this is well-healing and no signs of clinical infection at this time. Keep current dressing intact, clean and dry until follow-up in podiatry clinic outpatient Attestations 2 Medical Necessity Statement*: ileus, persisting nausea post operatively Coding Level of Care Code Acute Code for [facility] Diagnoses Diabetes mellitus type 2 with complications, uncontrolled E11.8; E11.65 Gangrene of toe of right foot I96
--- NOTE | 2024-07-18 09:29 | PC.NURSE ---
Patient took Amiodarone PO as ordered and then became nauseated and threw up a small amount. Refused other AM medications. Zofran given IV as ordered for n/v. Explained to patient the need to take cardiac medications as ordered. Refusing to eat any of breakfast tray. Offered to assist patient to get out of bed, patient refused to get out of bed at present time. States when that doctor comes by today I am telling them that I am going home Educated patient on importance of taking medications and is still having nausea and not taking medications and continues to have weakness and difficulty walking. Patient states I will be fine when I get home, there is just too much stress in the hospital
[2024-07-18] MEDS: lidocaine 1% 5 ML in potassium chloride premix 100 ML 52.5 ML IV (10:28)
--- NOTE | 2024-07-18 10:48 | P.PN_ITS ---
Subjective 2 Subjective: Patient seen and examined. Still reporting nausea. Denies any significant abdominal pain Vitals/I&O/Wt Last Vital Signs Temp 98.4 F 07/19/24 10:10 Pulse 83 07/19/24 10:10 Resp 18 07/19/24 10:10 BP 118/67 07/19/24 10:10 Pulse Ox 97 07/19/24 10:10 O2 Del Method Room Air 07/19/24 10:10 O2 Flow Rate 2 07/14/24 22:00 07/18/24 07/19/24 07/19/24 22:59 06:59 14:59 Intake Total 200 / 793.333 30 / 30 Output Total 800 / 860 400 / 400 Balance -800 / -266.667 200 / -66.667 -370 / -370 Weight last 48 hrs Weight 177 lb 7.554 oz Weight 180 lb 12.465 oz Physical Exam 2 Narrative: General: No acute distress, patient is nauseous, awake alert and oriented x 3 Abdomen: Soft, nondistended, appropriately tender Incisions intact without erythema or exudate Urinary Catheter Management: Bryan: Cath Placed During This Visit: yes Reason for Continuing Indwelling Catheter: Accurate Measurement of Urinary Output in Critically Ill Patients Urinary Catheter Date of Insertion: 07/14/24 Urinary Catheter Time of Insertion: 20:55 Data 07/18/24 04:07 07/18/24 04:07 A&P Assessment and plan (1) Calculus of gallbladder with cholecystitis: (2) Nausea & vomiting: (3) Intractable abdominal pain: (4) Constipation: (5) Ileus: Plan Postop day #6 status post laparoscopic cholecystectomy. There is a very large gallstone in the gallbladder with a very thin portion of the gallbladder inferior aspect of the fundus, near perforation Reglan Ambulate Medical management per primary Attestations 2 Medical Necessity Statement*: Per primary Coding Level of Care Code 13093 Diagnoses Calculus of gallbladder with cholecystitis K80.10 Nausea & vomiting R11.2 Intractable abdominal pain R10.9 Constipation K59.00 Ileus K56.7
[2024-07-18 11:21] LABS: Glucose Point of Care 133 mg/dL (70-110)
[2024-07-18 11:43] LABS: Glucose Point of Care 164 mg/dL (70-110)
--- NOTE | 2024-07-18 11:56 | PC.SOCIAL ---
IMM Update Pg. 2 of IMM updated. Initialed, dated, and timed, copy provided at bedside.
[2024-07-18] MEDS: insulin lispro 100 unit/1 mL SUBCUT ×2 (12:10→22:16)
[2024-07-18] MEDS: tamsulosin 0.4 mg Capsule PO (13:31)
--- NOTE | 2024-07-18 16:38 | PC.NURSE ---
Bryan discontinued as ordered, tolerated well.
[2024-07-18] MEDS: pantoprazole 40 mg SDV IVP (17:38)
[2024-07-18 17:47] LABS: Glucose Point of Care 135 mg/dL (70-110)
--- NOTE | 2024-07-18 22:23 | PC.NURSE ---
Addendum entered by SANCHO Mckeon 07/18/24 22:32: Spoke with Dr. Real to clarify orders. Cipro not available IVP, received orders for cipro 400mg IV over 1 hour Q12H to replace the cipro PO route. Also, hydralazine already present as PRN on patient's MAR. Original Note: When administering night time dose of metoprolol and cipro, patient started vomiting immediately after the pills reached his mouth, falling into a tavares bucket with vomit. Contacted Dr. Real, received orders to change cipro dose to 500mg IVP BID in place of the PO route cipro, and to add hydralazine 5mg IVP Q4H for BP greater than 180/100.
[2024-07-19] VITALS (9 sets, daily range): BP systolic 118–153; BP diastolic 64–76; PULSE 18–92; RESP 15–92; TEMP 36.8–36.9; O2SAT 93–99
[2024-07-19 00:21] LABS: Glucose Point of Care 166 mg/dL (70-110)
[2024-07-19] MEDS: enoxaparin 80 mg/0.8 mL Syringe SUBCUT ×2 (00:41→12:50)
[2024-07-19] MEDS: metoclopramide 5 mg/mL SDV 2 mL IVP ×2 (04:42→12:49)
[2024-07-19 08:32] LABS: Glucose Point of Care 136 mg/dL (70-110)
[2024-07-19 11:24] LABS: Glucose Point of Care 182 mg/dL (70-110)
[2024-07-19] MEDS: ciprofloxacin 400 MG/200 ML PREMIX 200 MG IV (11:36)
[2024-07-19] MEDS: promethazine 25 mg/mL SDV 1 mL 12.5 MG IM (11:37)
[2024-07-19] MEDS: insulin lispro 100 unit/1 mL SUBCUT (12:49)
--- NOTE | 2024-08-08 14:26 | P.DS_ITS ---
Discharge Providers Date of Admission: 07/11/24 09:09 Date of Discharge: Jul 19, 2024 Attending Provider at Admission: Lion Cunningham MD Attending Provider at Discharge: Shaniqua Nicolas MD Primary Care Provider: Junior Gery Diagnoses at Discharge Discharge Diagnosis (1) Calculus of gallbladder with cholecystitis: Status: Resolved (2) Nausea & vomiting: Status: Resolved (3) Intractable abdominal pain: Status: Resolved (4) Constipation: Status: Resolved (5) Ileus: Status: Inactive Reason for Visit Reason for Visit: abd pain Hospital Course Hospital Course Brandan Lima is a 54 y.o. male who presented to the ED with nausea and vomiting, toe gangrene, and lip angioedema. He has a PMHx of severe uncontrolled T2DM, COPD, DE, stroke, MARKO, HTN, and HLD. He admits to poor medication compliance. He has had nonbloody, nonbilious emesis numerous times over the past few days. He describes its appearance as light brown with a few chunks. He initially had constipation which transitioned to diarrhea. His appetite has been suppressed and his oral intake has been very minimal. He was diagnosed with cholecytsitis and underwent laparoscopic cholecystectomy on 07/12/24. He had a prolonged postoperative course with continued nausea and vomiting. Consideration for gastroparesis, patient was unable to complete a gastric emptying study due to vomiting. Ultimately his nausea is currently under better control with pen zofran, reglan and stopping Flagyl. HE also underwent right 5th toe amputation secondary to gangrene performed 07/11/2024. Status post primary delayed closure right fifth toe amputation site performed 07/12/2024. Clean margins appreciated intraoperatively and level of amputation was curative of infection source control. No further surgical intervention for right foot anticipated at this time. He is instructed to ambulate with postop shoe to the right foot. He is discharged home today with HH in stable state. Hospital course was notable for development of DKA which was managed with insulin drip. His Hba1c was at 12.3. Encouraged compliance with insulin at home. He had transient A fib with RVR which subsequently resolved, likely related to acute infection, post op state. Physical Exam Narrative: General: No acute distress, AO x3 HEENT: PERRLA, pupils bilaterally equal and reactive, pallors not present Chest: Normal vesicular breath sounds, no added sounds, equal good air entry bilaterally CVS: S1-S2 regular, no murmurs, no tachycardia, no gallops, no rubs Abdomen: Soft, nontender, no organomegaly, bowel sounds present Neuro: No focal deficits, no facial deformity, AO x3, power 5/5 in all limbs Urinary Catheter Management: Bryan: Cath Placed During This Visit: yes Reason for Continuing Indwelling Catheter: Accurate Measurement of Urinary Output in Critically Ill Patients Urinary Catheter Date of Insertion: 07/14/24 Urinary Catheter Time of Insertion: 20:55 Discharge Data Studies Completed and Pending Completed Studies During Hospitalization Category Date Time Status CT abdomen pelvis wo con [id number] Routine Cat Scan 07/17/24 11:19 Completed XR abdomen 1V* [id number] Routine Exams 07/15/24 10:42 Completed XR toe RT min 2V [id number] Stat Exams 07/11/24 06:40 Completed Pathology: Surgical [PTH] Routine Pth 07/11/24 13:28 Completed Pathology: Surgical [PTH] Routine Pth 07/12/24 18:36 Completed CV. echo complete* [id number] Routine Ultrasound 07/14/24 08:52 Completed US gall bladder [id number] Stat Ultrasound 07/11/24 05:12 Completed Radiology Impressions Gallbladder Ultrasound 07/11/24 05:12 IMPRESSION: 1. Cholelithiasis. Toe X-Ray 07/11/24 06:40 IMPRESSION: 1. Bony demineralization. Abdomen X-Ray 07/15/24 10:42 IMPRESSION: Mildly dilated small bowel loops centrally could represent adynamic ileus versus small bowel obstruction. CT could be considered for further assessment. Abdomen/Pelvis CT 07/17/24 11:19 IMPRESSION: 1. Upper abdominal pneumoperitoneum. 2. Moderate posterior pelvic peritoneal fluid. 3. Prior cholecystectomy. 4. Increased right abdominal colonic fluid consistent with any diarrheal illness. Clinical correlation is recommended. 5. Diverticulosis. 6. Prostatic hypertrophy with chronic calcific prostatitis. 7. Small bilateral pleural effusions. ADDENDUM: 07/17/24 1202 THIS REPORT CONTAINS FINDINGS THAT MAY BE CRITICAL TO PATIENT CARE. The findings were verbally communicated by me to DR. SHANIQUA NICOLAS via telephone conference at 12:00 PM [employer] on 07/17/2024. The findings were acknowledged and understood. The patient had laparoscopic cholecystectomy on 07/13/2024, accounting for the pneumoperitoneum. Laboratory Results WBC 9.35 10^3/uL (3.29-11.43) 07/18/24 04:07 RBC 4.88 10^6/uL (3.85-5.65) 07/18/24 04:07 Hgb 14.80 g/dL (11.27-16.99) 07/18/24 04:07 Hct 43.6 % (37-53) 07/18/24 04:07 MCV 89.3 fl (82-101) 07/18/24 04:07 MCH 30.3 pg (27-33) 07/18/24 04:07 MCHC 33.9 g/dL (30-55) 07/18/24 04:07 RDW 12.4 % (12.1-15.1) 07/18/24 04:07 Plt Count 298 10^3/cmm (157-399) 07/18/24 04:07 MPV 8.9 fL (7.4-10.4) 07/18/24 04:07 Neut % (Auto) 76.3 % 07/18/24 04:07 Lymph % (Auto) 15.0 % 07/18/24 04:07 [place] % (Auto) 8.1 % 07/18/24 04:07 Eos % (Auto) 0.3 % 07/18/24 04:07 Baso % (Auto) 0.0 % 07/18/24 04:07 Neut # (Auto) 7.13 10^3/uL (1.8-7.7) 07/18/24 04:07 Lymph # (Auto) 1.4 10^3/uL (0.8-4.8) 07/18/24 04:07 [place] # (Auto) 0.8 10^3/uL (0.2-0.9) 07/18/24 04:07 Eos # (Auto) 0.0 10^3/uL (0.0-0.8) 07/18/24 04:07 Baso # (Auto) 0.0 10^3/uL (0.0-0.1) 07/18/24 04:07 Nucleated RBC % (auto) 0 % 07/18/24 04:07 Nucleated RBCs # 0.0 /100WBC 07/18/24 04:07 Sodium 138 mmol/L (136-145) 07/18/24 04:07 Potassium 3.4 mmol/L (3.5-5.1) L 07/18/24 04:07 Chloride 104 mmol/L (98-107) 07/18/24 04:07 Carbon Dioxide 22 mmol/L (22-29) 07/18/24 04:07 Anion Gap 15.4 (5-19) 07/18/24 04:07 BUN 6 mg/dL (6-20) 07/18/24 04:07 Creatinine 0.6 mg/dL (0.7-1.2) L 07/18/24 04:07 GFR Calculation 140.4 mL/min (90-130) H 07/18/24 04:07 Glucose 148 mg/dL (65-115) H 07/18/24 04:07 POC Glucose 182 mg/dL (70-110) H 07/19/24 11:20 Estimat Average Glucose 306 07/11/24 05:30 Hemoglobin A1c 12.3 % (4.0-6.0) H 07/11/24 05:30 Calculated Osmolality 286 mOsm/kg (285-295) 07/18/24 04:07 Lactic Acid 2.4 mmol/L (0.5-2.2) H 07/11/24 05:30 Lactic Acid (Sepsis) 1.4 mmol/L (0.5-2.2) 07/11/24 08:03 Calcium 8.4 mg/dL (8.5-10.5) L 07/18/24 04:07 Magnesium 1.9 mg/dL (1.7-2.3) 07/18/24 04:07 Total Bilirubin 0.4 mg/dL (0.15-1.2) 07/18/24 04:07 AST 15 U/L (0-40) 07/18/24 04:07 ALT 21 U/L (0-41) 07/18/24 04:07 Alkaline Phosphatase 63 U/L (40-130) 07/18/24 04:07 Troponin T Baseline 11 ng/L (0-15) 07/14/24 14:23 Troponin T 120 Minute 12.88 ng/L (0-15) 07/14/24 16:17 Delta Troponin T 1.88 ABS# (0-10) 07/14/24 16:17 Troponin T Hi Sens 6Hr 12.93 ng/L (0-15) 07/14/24 20:02 Troponin T Hi Sens 6Hr Delta 1.93 ng/L (0-12) 07/14/24 20:02 C-Reactive Protein 5.6 mg/L (0.0-4.9) H 07/11/24 05:30 Total Protein 5.0 g/dL (6.6-8.7) L 07/18/24 04:07 Albumin 2.8 g/dL (3.5-5.2) L 07/18/24 04:07 Globulin 2.2 g/dL (1.3-4.6) 07/18/24 04:07 Lipase 8 U/L (13-60) L 07/14/24 14:23 TSH 0.70 uIU/mL (0.27-4.20) 07/13/24 04:49 Urine Color Yellow (Yellow) 07/11/24 11:05 Urine Appearance Clear (CLEAR) 07/11/24 11:05 Urine pH 5.5 (5-7) 07/11/24 11:05 Ur Specific [place] 1.041 (1.005-1.030) H 07/11/24 11:05 Urine Protein Negative (Negative) 07/11/24 11:05 Urine Glucose (UA) 3+ (Normal) H 07/11/24 11:05 Urine Ketones 3+ (Negative) H 07/11/24 11:05 Urine Blood Negative (Negative) 07/11/24 11:05 Urine Nitrate Negative (Negative) 07/11/24 11:05 Urine Bilirubin Negative (Negative) 07/11/24 11:05 Urine Urobilinogen 0.2 mg/dL (Negative) 07/11/24 11:05 Ur Leukocyte Esterase Negative (Negative) 07/11/24 11:05 Urine RBC 0-2 /hpf (0-2) 07/11/24 11:05 Urine WBC 0-5 /hpf (0-5) 07/11/24 11:05 Ur Squamous Epith Cells 0-5 /hpf (0-5) 07/11/24 11:05 Amorphous Sediment Not Reportable 07/11/24 11:05 Urine Bacteria None seen /hpf (NONE) 07/11/24 11:05 Hyaline Casts 0-4 /lpf H 07/11/24 11:05 Vancomycin Trough 18.9 ug/mL (10-15) H 07/14/24 18:25 Serum Ketones Positive (Negative) H 07/13/24 04:49 Coronavirus (PCR) Negative (Negative) 07/11/24 05:30 Influenza A (PCR) Negative (Negative) 07/11/24 05:30 Influenza Type B (PCR) Negative (Negative) 07/11/24 05:30 RSV (PCR) Negative (Negative) 07/11/24 05:30 Vitals Last Vital Signs Temp 98.3 F 07/19/24 14:29 Pulse 18 L 07/19/24 14:29 Resp 92 H 07/19/24 14:29 BP 120/76 07/19/24 14:29 Pulse Ox 99 07/19/24 14:29 O2 Del Method Room Air 07/19/24 11:44 O2 Flow Rate 2 07/14/24 22:00 Discharge Plan Discharge Patient Disposition: Home Condition: Stable Prescriptions: New amiodarone [Pacerone] 200 mg Tablet 200 mg PO BID 30 Days Qty: 60 0RF metoprolol tartrate 25 mg Tablet 25 mg PO BID@0900,2100 30 Days Qty: 30 0RF pantoprazole [Protonix] 40 mg tablet,delayed release (DR/EC) 40 mg PO DAILY 30 Days Qty: 30 0RF Continued citalopram 20 mg tablet 20 mg PO DAILY 30 Days Qty: 30 11RF Trulicity 1.5 mg/0.5 mL pen injector 1.5 mg SUBCUT .weekly 30 Days Qty: 4 11RF Tresiba FlexTouch U-100 100 unit/mL (3 mL) insulin pen 70 unit SUBCUT DAILY 30 Days Qty: 15 11RF albuterol sulfate [Ventolin HFA] 90 mcg/actuation HFA aerosol inhaler 2 inh INHALATION Q4H PRN (Reason: shortness of breath or wheezing) 30 Days Qty: 6.7 2RF aspirin [Adult Low Dose Aspirin] 81 mg tablet,delayed release (DR/EC) 81 mg PO DAILY 30 Days Qty: 30 2RF fluticasone propion-salmeterol [Advair Diskus] 250-50 mcg/dose blister with device 1 inh INHALATION BID 30 Days Qty: 1 2RF Jardiance 25 mg tablet 25 mg PO DAILY Discontinued lisinopril 2.5 mg tablet 2.5 mg PO DAILY 30 Days Qty: 30 11RF No Action (DME) Diabetic shoe with 3 sets insoles See Rx Instructions .Route .MEDSUPPLY Qty: 1 0RF Rx Instructions: As directed metoclopramide HCl 5 mg tablet 5 mg PO Q6H PRN (Reason: nausea and vomiting) Rx Instructions: for 5 days only Discharge Orders: Discharge Order (Routine); Ordered 07/19/24 Ordered By: Shaniqua Nicolas Referrals: Charles Dhillon DO [Physician] - 1 week (We have notified your physician's clinic of the need for a follow-up appointment to be scheduled. If you have not heard from them within the next 2 business days, please call them directly. ) Lester Fall DPM [Physician] - (We have notified your physician's clinic of the need for a follow-up appointment to be scheduled. If you have not heard from them within the next 2 business days, please call them directly. ) Ying Pearce FNP-C [Nurse Practitioner] - 7-10 days (We have notified your physician's clinic of the need for a follow-up appointment to be scheduled. If you have not heard from them within the next 2 business days, please call them directly. ) Junior Grey NP [Primary Care Provider] - Discharge Diet: Usual diet Discharge Activity: Resume usual activity Patient Instructions: Metoprolol (By mouth) (Lopressor, Toprol XL), Metoclopramide (By mouth) (Metozolv ODT, PCP 100, Reglan), Amiodarone (By mouth) (Cordarone, Pacerone), Ondansetron (By mouth) (Zofran, Zofran ODT, Zuplenz), Pantoprazole (By mouth) (Protonix), Constipation (DC), COPD (Chronic Obstructive Pulmonary Disease) (DC), Acute Wound Care (DC), Angioedema (ED), Laparoscopic Cholecystectomy (DC), Toe Amputation (DC), Opioid Safety, Post Anesthesia Care Activity Restrictions/Additional Instructions: Wound care instructions from Dr. Fall for right foot -Please keep your current surgical dressing clean, dry and intact until your follow-up visit with Dr. Fall in podiatry clinic July 18, 2025 at 9:45 AM -Please elevate your right foot while resting please -Please reduce the amount of standing and weightbearing over the next 2 weeks for the surgical site on the right foot heel, when weightbearing wear postop shoe at all times. -Contact podiatry clinic with any questions or concerns [phone] Discharge Attestations Time Spent in Discharge Care*: greater than 30 min Quality Metrics Clinical Quality Measures [ No reported AMI, CVA or VTE this stay] Coding Level of Care Code Acute Code for Chg Fwd Diagnoses Calculus of gallbladder with cholecystitis K80.10 Nausea & vomiting R11.2 Intractable abdominal pain R10.9 Constipation K59.00 Ileus K56.7
== END 2024-07-19 13:24 | disposition home health service (06) | DRG 256 ==
LOC: ER 08:08 → ER IP 09:10 → CSU 14:23 → ICU 07-13 11:42 → MEDSURG 07-19 09:40
PROVIDERS: Emergency Medicine; Internal Medicine; Podiatrist Foot & Ankle Surgery; Surgery; Admitting Provider Internal Medicine; Emergency Provider Emergency Medicine; PCP Clinical Nurse Specialist Adult Health; Visit Provider Student in an Organized Health Care Education/Training Program
PROC: 0Y6V0Z0 Detachment at Right 4th Toe, Complete, Open Approach (ICD-10-PCS; principal; 2024-07-11 12:00)
PROC: 0FT44ZZ Resection of Gallbladder, Percutaneous Endoscopic Approach (ICD-10-PCS; CPT 47562; principal; 2024-07-12 15:45)
PROC: 0JQQ0ZZ Repair Right Foot Subcutaneous Tissue and Fascia, Open Approach (ICD-10-PCS; CPT 13160; 2024-07-12 15:45)
DX: E11.52 Type 2 diabetes mellitus with diabetic peripheral angiopathy with gangrene (principal); I96 Gangrene, not elsewhere classified; K80.10 Calculus of gallbladder with chronic cholecystitis without obstruction; K56.7 Ileus, unspecified; E11.10 Type 2 diabetes mellitus with ketoacidosis without coma; E11.43 Type 2 diabetes mellitus with diabetic autonomic (poly)neuropathy; K31.84 Gastroparesis; E11.40 Type 2 diabetes mellitus with diabetic neuropathy, unspecified; Z11.52 Encounter for screening for COVID-19; K59.00 Constipation, unspecified; T78.3XXA Angioneurotic edema, initial encounter; J44.9 Chronic obstructive pulmonary disease, unspecified; I25.2 Old myocardial infarction; Z86.73 Personal history of transient ischemic attack (TIA), and cerebral infarction without residual deficits; G47.33 Obstructive sleep apnea (adult) (pediatric); I10 Essential (primary) hypertension; E78.5 Hyperlipidemia, unspecified; T38.3X6A Underdosing of insulin and oral hypoglycemic [antidiabetic] drugs, initial encounter; Z91.128 Patient's intentional underdosing of medication regimen for other reason; R19.7 Diarrhea, unspecified; I48.91 Unspecified atrial fibrillation; Z79.85 Long-term (current) use of injectable non-insulin antidiabetic drugs; Z79.82 Long term (current) use of aspirin; Z79.84 Long term (current) use of oral hypoglycemic drugs; F17.210 Nicotine dependence, cigarettes, uncomplicated; Z99.81 Dependence on supplemental oxygen; E86.0 Dehydration; R33.9 Retention of urine, unspecified
CPT/HCPCS: 36415; 36416; 51702; 51798; 73660; 74018; 74176; 76705; 80048; 80053; 80202; 81001; 82009; 82962; 83036; 83605; 83690; 83735; 84443; 84484; 85025; 86140; 87040; 87070; 87075; 87077; 87186; 87205; 87637; 88304; 88305; 88311; 93005; 93306; 94640; 96365; 96367; 96372; 96374; 96375; 96376; 97110; 97116; 97161; 99285; A4222; J0131; J0282; J0283; J0360; J0744; J1100; J1171; J1200; J1644; J1650; J1815; J2270; J2405; J2470; J2550; J2704; J2710; J2765; J2919; J3010; J3370; J3372; J3480; J3490; J7030; J7040; J7050; J7626

== ENCOUNTER → 2024-07-26 14:40 | Outpatient (BNVA) | payer MEDICARE, MEDICAID, SELFPAY | PROVIDERS: PCP Clinical Nurse Specialist Adult Health; Visit Provider Podiatrist Foot & Ankle Surgery | DX: E11.8 Type 2 diabetes mellitus with unspecified complications; E11.65 Type 2 diabetes mellitus with hyperglycemia; Z89.421 Acquired absence of other right toe(s); L97.512 Non-pressure chronic ulcer of other part of right foot with fat layer exposed; E11.621 Type 2 diabetes mellitus with foot ulcer; Z79.4 Long term (current) use of insulin | CPT/HCPCS: 99213 ==

== ENCOUNTER → 2024-07-30 10:43 | Outpatient (BNVA) | payer MEDICARE, MEDICAID, SELFPAY | PROVIDERS: PCP Clinical Nurse Specialist Adult Health; Visit Provider Surgery | DX: Z90.49 Acquired absence of other specified parts of digestive tract (principal); K42.9 Umbilical hernia without obstruction or gangrene; K80.20 Calculus of gallbladder without cholecystitis without obstruction | CPT/HCPCS: 99024 ==

== ENCOUNTER → 2024-08-03 10:52 | Outpatient (BNVA) | payer MEDICARE, MEDICAID, SELFPAY | PROVIDERS: PCP Clinical Nurse Specialist Adult Health; Visit Provider Podiatrist Foot & Ankle Surgery | DX: E11.8 Type 2 diabetes mellitus with unspecified complications (principal); E11.65 Type 2 diabetes mellitus with hyperglycemia; E11.621 Type 2 diabetes mellitus with foot ulcer; L97.512 Non-pressure chronic ulcer of other part of right foot with fat layer exposed; I73.9 Peripheral vascular disease, unspecified; E11.42 Type 2 diabetes mellitus with diabetic polyneuropathy; M21.41 Flat foot [pes planus] (acquired), right foot; M21.42 Flat foot [pes planus] (acquired), left foot; Z79.4 Long term (current) use of insulin | CPT/HCPCS: 99213 ==

== ENCOUNTER 2024-08-15 11:23 | Emergency (ER) | payer MEDICARE, MEDICAID, SELFPAY ==
[2024-08-15 11:26] VITALS: BP 118/91; PULSE 101; RESP 18; TEMP 37.7; O2SAT 98; BMI 23.1
--- NOTE | 2024-08-15 11:41 | XR_ITS ---
WS: [id number] Portable AP upright chest, 08/15/2024 Clinical Data: vomiting Comparison: Two-view chest, 11/25/2022 Findings: No nodules, masses or effusions are seen. The heart is normal. The pulmonary vascularity is not increased. No pneumonia or pneumothorax is seen. XR/XR chest 1V portable [id number] Impression: Negative chest.
[2024-08-15 11:57] LABS: Basophils % 0.1 %; Hematocrit 46.1 % (37-53); Lymphocytes # 0.5 10^3/uL (0.8-4.8); Lymphocytes % 3.8 %; Mean Corpuscular HGB Conc 34.1 g/dL (30-55); Mean Corpuscular Hemoglobin 31.3 pg (27-33); Mean Platelet Volume 9.2 fL (7.4-10.4); Monocytes # 0.3 10^3/uL (0.2-0.9); Monocytes % 2.6 %; Neutrophils # 11.68 10^3/uL (1.8-7.7); Neutrophils % 93.2 %; Nucleated Red Blood Cells % 0 %; Platelet Count 341 10^3/cmm (157-399); Red Blood Count 5.01 10^6/uL (3.85-5.65); Red Cell Distribution Width 13.2 % (12.1-15.1); White Blood Count 12.53 10^3/uL (3.29-11.43)
--- NOTE | 2024-08-15 11:58 | W.ED.NAVMDI ---
HPI - Nausea/Vomiting/Diarrhea General: Chief complaint: Nausea/Vomiting/Diarrhea Stated complaint: N/V Time Seen by Provider: 08/15/24 11:25 Source: patient and EMS Mode of arrival: EMS Limitations: no limitations History of Present Illness: 54-year-old male who states that he has been having nausea vomiting abdominal pain over the last few days he states the pains been cramping in nature he states he also not been taking his insulin as prescribed is a type II diabetic. He denies any worsening improving factors denies any diarrhea. Associated nausea: Yes Associated symtoms: Reports nausea; Denies chest pain or headache(s) Related Data Home Medications Medication Instructions Recorded Confirmed empagliflozin 25 mg tablet 25 mg PO DAILY 07/11/24 08/15/24 (Jardiance) Previous Rx's Medication Instructions Recorded albuterol sulfate 90 mcg/actuation 2 inh inhalation Q4H PRN shortness 09/22/23 aerosol inhaler (Ventolin HFA) of breath or wheezing 30 days #6.7 grams aspirin 81 mg tablet,delayed 81 mg PO DAILY 30 days #30 tabs 09/22/23 release (Adult Low Dose Aspirin) fluticasone 250 mcg-salmeterol 50 1 inh inhalation BID 30 days #1 ea 09/22/23 mcg/dose blistr powdr for inhalation (Advair Diskus) citalopram 20 mg tablet 20 mg PO DAILY 30 days #30 tabs 06/13/24 dulaglutide 1.5 mg/0.5 mL 1.5 mg (0.5 mL) SUBCUT .weekly 30 06/13/24 subcutaneous pen injector days #4 ea (Trulicity) insulin degludec 100 unit/mL (3 70 unit (0.7 mL) SUBCUT DAILY 30 06/13/24 mL) subcutaneous pen (Tresiba days #15 mL FlexTouch U-100 insulin) amiodarone 200 mg tablet (Pacerone) 200 mg PO BID 30 days #60 tabs 07/19/24 metoprolol tartrate 25 mg tablet 25 mg PO BID@0900,2100 30 days #30 07/19/24 tabs pantoprazole 40 mg tablet,delayed 40 mg PO DAILY 30 days #30 tabs 07/19/24 release (Protonix) Diabetic shoe with 3 sets insoles #1 ea 08/03/24 ondansetron 4 mg disintegrating 4 mg PO Q6H PRN nausea and 08/15/24 tablet vomiting #14 tabs Allergies Allergy/AdvReac Type Severity Reaction Status Date / Time lisinopril Allergy Severe angioedema Verified 08/15/24 09:47 gabapentin Allergy Unknown Verified 08/15/24 09:47 Penicillins Allergy Unknown Verified 08/15/24 09:47 Review of Systems Const: Denies: fever(s), chills, body aches or change in appetite ENMT: Denies: throat pain or dental pain Card: Denies: chest pain Resp: Denies: dyspnea GI: Reports: nausea and vomiting; Denies: abdominal pain or diarrhea Musc: Denies: neck pain or back pain Skin/Breast: Denies: rash Neuro: Denies: headache(s) PFSH ED PFSH: Medical History Atrial fibrillation with RVR witnessed in hospital 07/2024 Angioedema of lips r/t lisinopril Diabetes mellitus type 2 with complications, uncontrolled Essential (primary) hypertension Diabetic neuropathy Diabetic foot ulcer Tobacco abuse disorder Dependence on nocturnal oxygen therapy History of [place] (myocardial infarction) On supplemental oxygen by nasal cannula Enrolled in chronic care management Noncompliance Chronic obstructive pulmonary disease, unspecified PVD (peripheral vascular disease) MARKO (obstructive sleep apnea) unable to tolerate Cpap due to claustrophobia Hyperlipidemia, acquired History of TIA (transient ischemic attack) saw neurology after his TIA/stroke. Calculus of gallbladder with cholecystitis Ileus Surgical History Amputated toe of right foot Hx of cholecystectomy H/O right inguinal hernia repair Family History Other Diabetes Heart disease Stroke Social History Smoking and tobacco/nicotine status: current every day tobacco/nicotine user cigarettes [ Other cigarette details: 35 pack year history] Second hand smoke exposure: Yes Alcohol intake: never Substance/Drug Use: never Adopted: No Caregiver/support person: No Lives independently: Yes Household members: none Marital status: Single service: No Current occupational status: disabled Do you think of yourself as: Straight/Heterosexual Current gender identity: Male Physical Exam Const: COMMON NORMALS: no acute distress, patient oriented x3 and healthy appearing HENMT: COMMON NORMALS: normocephalic and atraumatic HEAD & SCALP: normocephalic and atraumatic Eye: COMMON NORMALS: Equal, round and reactive pupils present and EOMs intact bilaterally PUPIL: Yes Equal, round and reactive pupils present Neck/C-Spine: COMMON NORMALS: full ROM and supple Chest: COMMONS NORMALS: normal inspection of the chest and normal palpation of entire chest wall Resp: COMMON NORMALS: normal respiratory effort, No retractions, No use of accessory muscles and clear to auscultation bilaterally AUSCULTATION: clear to auscultation bilaterally Cardio: COMMON NORMALS: regular rate, regular rhythm and No murmurs present (Cardio) RATE: regular rate RHYTHM: regular rhythm GI: COMMON NORMALS: Normal to inspection, nondistended, normoactive bowel sounds present, Soft to palpation, non-tender and no masses PALPATION: Yes Soft to palpation Extremity: COMMON NORMALS: normal to inspection and full ROM Neuro: COMMON NORMALS: patient oriented x3, moves all extremities and no focal motor deficits Psych: COMMON NORMALS: mental status grossly normal, Normal thought process present and cooperative THOUGHT PROCESS: Normal thought process present Skin: COMMON NORMALS: no rashes or lesions noted and no wounds GENERAL SKIN EXAM: no rashes or lesions noted Course Vital Signs: Vital signs: Vital Signs Temperature 99.8 F H 08/15/24 11:26 Pulse Rate 93 08/15/24 13:41 Respiratory Rate 18 08/15/24 11:26 Blood Pressure 127/72 08/15/24 13:41 Pulse Oximetry 97 08/15/24 13:41 Oxygen Delivery Me thod Room Air 08/15/24 11:26 MDM - Nausea/Vomiting/Diarrhea Medical Decision Making Patient presents here with vomiting he has been well-appearing here feels improved after Zofran he has been able to tolerate p.o. CT scan showed no acute abnormalities he stable for discharge will prescribe Zofran for home is follow-up with PCP return if worsening. Medical Records I reviewed the patient's medical records. Lab Data I reviewed the patient's lab results. 08/15/24 11:50 08/15/24 11:50 Radiology Impressions Chest X-Ray 08/15/24 11:41 Impression: Negative chest. Abdomen/Pelvis CT 08/15/24 12:05 IMPRESSION: 1. Previously described pneumoperitoneum has resolved. 2. No GI tract obstruction. 3. Ventral abdominal wall hernia contains fat only. 4. Prior cholecystectomy. 5. Small amount of free fluid in the pelvis is decreased since 07/17/2024. 6. New circumferential edema surrounding the distal esophagus. May be from recent episodes of vomiting. Laboratory Results WBC 12.53 10^3/uL (3.29-11.43) H 08/15/24 11:50 RBC 5.01 10^6/uL (3.85-5.65) 08/15/24 11:50 Hgb 15.70 g/dL (11.27-16.99) 08/15/24 11:50 Hct 46.1 % (37-53) 08/15/24 11:50 MCV 92.0 fl (82-101) 08/15/24 11:50 MCH 31.3 pg (27-33) 08/15/24 11:50 MCHC 34.1 g/dL (30-55) 08/15/24 11:50 RDW 13.2 % (12.1-15.1) 08/15/24 11:50 Plt Count 341 10^3/cmm (157-399) 08/15/24 11:50 MPV 9.2 fL (7.4-10.4) 08/15/24 11:50 Neut % (Auto) 93.2 % 08/15/24 11:50 Lymph % (Auto) 3.8 % 08/15/24 11:50 [place] % (Auto) 2.6 % 08/15/24 11:50 Eos % (Auto) 0.0 % 08/15/24 11:50 Baso % (Auto) 0.1 % 08/15/24 11:50 Neut # (Auto) 11.68 10^3/uL (1.8-7.7) H 08/15/24 11:50 Lymph # (Auto) 0.5 10^3/uL (0.8-4.8) L 08/15/24 11:50 [place] # (Auto) 0.3 10^3/uL (0.2-0.9) 08/15/24 11:50 Eos # (Auto) 0.0 10^3/uL (0.0-0.8) 08/15/24 11:50 Baso # (Auto) 0.0 10^3/uL (0.0-0.1) 08/15/24 11:50 Nucleated RBC % (auto) 0 % 08/15/24 11:50 Nucleated RBCs # 0.0 /100WBC 08/15/24 11:50 Sodium 138 mmol/L (136-145) 08/15/24 11:50 Potassium 4.2 mmol/L (3.5-5.1) 08/15/24 11:50 Chloride 96 mmol/L (98-107) L 08/15/24 11:50 Carbon Dioxide 25 mmol/L (22-29) 08/15/24 11:50 Anion Gap 21.2 (5-19) H 08/15/24 11:50 BUN 11 mg/dL (6-20) 08/15/24 11:50 Creatinine 0.7 mg/dL (0.7-1.2) 08/15/24 11:50 GFR Calculation 117.5 mL/min (90-130) 08/15/24 11:50 Glucose 358 mg/dL (65-115) H 08/15/24 11:50 Calculated Osmolality 300 mOsm/kg (285-295) H 08/15/24 11:50 Calcium 8.8 mg/dL (8.5-10.5) 08/15/24 11:50 Total Bilirubin 0.8 mg/dL (0.15-1.2) 08/15/24 11:50 AST 12 U/L (0-40) 08/15/24 11:50 ALT 11 U/L (0-41) 08/15/24 11:50 Alkaline Phosphatase 93 U/L (40-130) 08/15/24 11:50 Total Protein 6.1 g/dL (6.6-8.7) L 08/15/24 11:50 Albumin 3.7 g/dL (3.5-5.2) 08/15/24 11:50 Globulin 2.4 g/dL (1.3-4.6) 08/15/24 11:50 Lipase 11 U/L (13-60) L 08/15/24 11:50 Amorphous Sediment Not Reportable 08/15/24 13:48 All radiology interpretation(s) finalized by discharge Discharge Plan Discharge Patient Disposition: Home Clinical Impression: Vomiting Qualifiers: Vomiting type: unspecified Nausea presence: with nausea Qualified Code(s): R11.2 - Nausea with vomiting, unspecified Condition: Stable Prescriptions: New ondansetron 4 mg tablet,disintegrating 4 mg PO Q6H PRN (Reason: nausea and vomiting) Qty: 14 0RF No Action citalopram 20 mg tablet 20 mg PO DAILY 30 Days Qty: 30 11RF Trulicity 1.5 mg/0.5 mL pen injector 1.5 mg SUBCUT .weekly 30 Days Qty: 4 11RF Tresiba FlexTouch U-100 100 unit/mL (3 mL) insulin pen 70 unit SUBCUT DAILY 30 Days Qty: 15 11RF (DME) Diabetic shoe with 3 sets insoles See Rx Instructions .Route .MEDSUPPLY Qty: 1 0RF Rx Instructions: As directed albuterol sulfate [Ventolin HFA] 90 mcg/actuation HFA aerosol inhaler 2 inh INHALATION Q4H PRN (Reason: shortness of breath or wheezing) 30 Days Qty: 6.7 2RF aspirin [Adult Low Dose Aspirin] 81 mg tablet,delayed release (DR/EC) 81 mg PO DAILY 30 Days Qty: 30 2RF fluticasone propion-salmeterol [Advair Diskus] 250-50 mcg/dose blister with device 1 inh INHALATION BID 30 Days Qty: 1 2RF Jardiance 25 mg tablet 25 mg PO DAILY amiodarone [Pacerone] 200 mg Tablet 200 mg PO BID 30 Days Qty: 60 0RF metoprolol tartrate 25 mg Tablet 25 mg PO BID@0900,2100 30 Days Qty: 30 0RF pantoprazole [Protonix] 40 mg tablet,delayed release (DR/EC) 40 mg PO DAILY 30 Days Qty: 30 0RF Discharge Orders: Discharge ED (Routine); Ordered 08/15/24 Ordered By: Yudith Curtis Referrals: Junior Grey, LUNCHROOM MONITOR [Primary Care Provider] - 4-7 days Discharge Diet: Advance as tolerated Discharge Activity: Resume usual activity Patient Instructions: Acute Nausea and Vomiting (ED) Coding Level of Care Code ED Identity Management Developer for Keshia Dodge
[2024-08-15] MEDS: diphenhydrAMINE 50 mg/mL SDV 1mL IVP (12:01)
[2024-08-15] MEDS: metoclopramide 5 mg/mL SDV 2 mL 10 MG IVP (12:03)
[2024-08-15] MEDS: sodium chloride 0.9% 1,000 ML 999 ML IV (12:04)
--- NOTE | 2024-08-15 12:05 | CT_ITS ---
WS: [id number] CT ABDOMEN AND PELVIS WITH CONTRAST HISTORY: abd pain TECHNIQUE: Imaging performed of the abdomen and pelvis with IV contrast. Single phase imaging of the abdomen. Coronal and sagittal reformats are submitted. All CT scans at [facility] use at [address] one of these dose optimization techniques: automated exposure control; mA and/or kV adjustment per patient size (includes targeted exams where dose is matched to clinical indication); or iterative re construction. IV CONTRAST: Omnipaque 350; 100 mL IV. Oral contrast: No DLP: 572.27 mGy.cm COMPARISON: 07/17/2024 Lower thorax: Lung bases are clear. Heart is normal size. New circumferential esophageal wall thicken ing and edema since 07/17/2024. Liver/biliary system: Normal size with no intrahepatic dilatation. Gallbladder: Status post cholecystectomy. Pancreas: Normal size pancreas and pancreatic duct. No adjacent inflammation. Spleen: Granulomata. Normal size. Adrenal glands: Normal. Right kidney: Normal. Left kidney: Normal. Aorta: Normal. Lymphadenopathy: None. Free fluid: None. GI tract: Nondistended stomach. No small bowel obstruction. Normal appendix. Mild distal colonic dive rticular disease. No acute diverticulitis. Mild sigmoid wall thickening at the site of the chronic di verticular disease. Abdominal wall: Small ventral abdominal wall hernia contains fat only. Mild soft tissue anasarca. Pelvis: Small amount of free fluid in the pelvis has decreased since 07/17/2024 Bones: Unremarkable. CT/CT abdomen pelvis w con* [id number] IMPRESSION: 1. Previously described pneumoperitoneum has resolved. 2. No GI tract obstruction. 3. Ventral abdominal wall hernia contains fat only. 4. Prior cholecystectomy. 5. Small amount of free fluid in the pelvis is decreased since 07/17/2024. 6. New circumferential edema surrounding the distal esophagus. May be from rec ent episodes of vomiting.
[2024-08-15 12:12] VITALS: BP 139/79; PULSE 100; O2SAT 99
[2024-08-15 12:20] LABS: Alanine Aminotransferase 11 U/L (0-41); Albumin Level 3.7 g/dL (3.5-5.2); Alkaline Phosphatase 93 U/L (40-130); Aspartate Amino Transferase 12 U/L (0-40); Blood Urea Nitrogen 11 mg/dL (6-20); Calcium 8.8 mg/dL (8.5-10.5); Carbon Dioxide 25 mmol/L (22-29); Chloride 96 mmol/L (98-107); Creatinine Clr Calc Pharmacy 124.5826; Globulin 2.4 g/dL (1.3-4.6); Glomerular Filtration Rate 117.5 mL/min (90-130); Glucose 358 mg/dL (65-115); Lipase 11 U/L (13-60); Osmolality Calculated 300 mOsm/kg (285-295); Sodium 138 mmol/L (136-145); Total Bilirubin 0.8 mg/dL (0.15-1.2); Total Protein 6.1 g/dL (6.6-8.7)
[2024-08-15 12:21] LABS: Anion Gap 21.2 (5-19); Potassium 4.2 mmol/L (3.5-5.1)
[2024-08-15 12:30] VITALS: BP 151/80; PULSE 95
[2024-08-15] MEDS: iohexol 350 mg/mL 500 mL Btl (per mL) IV (13:09)
[2024-08-15 13:41] VITALS: BP 127/72; PULSE 93; O2SAT 97
--- NOTE | 2024-08-15 13:58 | PC.PHAR ---
Patient states he is taking his medications , but some fill dates are in June and he hasn't refilled them . His insulins both should have been refilled at the end of July .
[2024-08-15 14:05] LABS: Bilirubin Urine Negative (Negative); Blood Urine Negative (Negative); Glucose Urine UA 3+ (Normal); Ketones Urine 3+ (Negative); Leukocyte Esterase Urine Negative (Negative); Nitrate Urine Negative (Negative); Protein Urine 1+ (Negative); Urine Appearance Clear (CLEAR); Urine Color Yellow (Yellow); Urobilinogen Urine 0.2 mg/dL (Negative)
[2024-08-15 14:10] LABS: Add Urine Microscopic? YES; Bacteria Urine None Seen /hpf; Hyaline Casts Urine 2.87 /lpf; RBC Urine 0-2 /hpf (0-2); Squamous Epithelial Cell Urine 0-5 /hpf (0-5); WBC Urine 0-5 /hpf (0-5)
[2024-08-15 14:23] LABS: Specific Gravity, Urine 1.048 (1.005-1.030)
[2024-08-15 15:07] LABS: Glucose Point of Care 271 mg/dL (70-110)
[2024-08-15 15:09] VITALS: BP 114/68; PULSE 94; O2SAT 100
--- NOTE | 2024-08-15 16:31 | PC.NURSE ---
Addendum entered by Stefanie Hernandez RN 08/15/24 16:45: per CT staff: pt had second IV placed by CT for CT with contrast. Original Note: pt IV removed by this nurse was in L A/C, wrapped with coban. per ICU staff, pt went to ICU and asked ICU to remove a second IV in wrist. this nurse unaware of this IV, pt did not mention IV at time of discharge, EMS did not mention second IV. 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 per ICU pt's second IV was removed.
== END 2024-08-15 15:16 | disposition home or self-care (01) ==
PROVIDERS: Emergency Provider Emergency Medicine; PCP Clinical Nurse Specialist Adult Health
DX: R11.2 Nausea with vomiting, unspecified (principal); F17.210 Nicotine dependence, cigarettes, uncomplicated; Z86.73 Personal history of transient ischemic attack (TIA), and cerebral infarction without residual deficits; E78.5 Hyperlipidemia, unspecified; E11.9 Type 2 diabetes mellitus without complications
CPT/HCPCS: 36415; 36416; 71045; 74177; 80053; 81001; 82962; 83690; 85025; 96374; 96375; 99285; J1200; J2765; J7030

== ENCOUNTER → 2024-08-20 08:07 | Outpatient (BNVA) | payer MEDICARE, MEDICAID, SELFPAY | PROVIDERS: PCP Clinical Nurse Specialist Adult Health; Visit Provider Podiatrist Foot & Ankle Surgery | DX: E11.621 Type 2 diabetes mellitus with foot ulcer; L97.513 Non-pressure chronic ulcer of other part of right foot with necrosis of muscle; L97.511 Non-pressure chronic ulcer of other part of right foot limited to breakdown of skin; Z98.890 Other specified postprocedural states; E11.8 Type 2 diabetes mellitus with unspecified complications; E11.65 Type 2 diabetes mellitus with hyperglycemia; Z89.421 Acquired absence of other right toe(s); I73.9 Peripheral vascular disease, unspecified; E11.42 Type 2 diabetes mellitus with diabetic polyneuropathy; Z79.4 Long term (current) use of insulin | CPT/HCPCS: 73630; 99213 ==

== ENCOUNTER → 2024-08-23 14:04 | Outpatient (BNVA) | payer MEDICARE, MEDICAID, SELFPAY | PROVIDERS: PCP Clinical Nurse Specialist Adult Health; Visit Provider Thoracic Surgery (Cardiothoracic Vascular Surgery) | DX: E11.52 Type 2 diabetes mellitus with diabetic peripheral angiopathy with gangrene (principal); E11.621 Type 2 diabetes mellitus with foot ulcer; L97.511 Non-pressure chronic ulcer of other part of right foot limited to breakdown of skin; T87.81 Dehiscence of amputation stump; Y83.8 Other surgical procedures as the cause of abnormal reaction of the patient, or of later complication, without mention of misadventure at the time of the procedure; Z89.421 Acquired absence of other right toe(s) | CPT/HCPCS: 11042; 87070; 87077; 87176; 87186; 87205; 97597; 99203 ==

== ENCOUNTER 2024-08-27 14:26 | Outpatient (CLI) | payer MEDICARE, MEDICAID, SELFPAY ==
--- NOTE | 2024-08-27 14:45 | USR_ITS ---
PROCEDURE INFORMATION: Exam: US Duplex Right Lower Extremity Arteries Or Arterial Bypass Grafts Exam date and time: 08/27/2024 2:36 PM Age: 54 years old Clinical indication: Pain; Leg, lower; Right; Additional info: Weak pulses rle, please include veronica rle TECHNIQUE: Imaging protocol: Right Real-time duplex scan of the arteries or arterial bypass grafts of the right lower extremity with 2-D tavares scale, color Doppler flow and spectral waveform analysis. Images documented and saved. COMPARISON: CT abdomen pelvis w con* [id number] 08/15/2024 12:58 PM FINDINGS: Right external iliac artery: Proximal 77.8 cm/sec, mid 65.1 cm/sec, distal 60.1 cm/sec, triphasic. Right common femoral artery: 61 cm/sec, triphasic. Right superficial femoral artery: Proximal SFA 76 cm/sec, triphasic. Mid SFA 40 cm/sec, triphasic. Distal SFA 27 cm/sec, monophasic, spectral broadening. Right popliteal artery: 21 cm/sec, monophasic. Right calf/foot arteries: BUSINESS CASE ANALYST 28 cm/sec monophasic, spectral broadening. Dorsalis pedis 10 cm/sec, monophasic. Other findings: N/A (dorsalis pedis); 0.89 (posterior tibial). Soft tissues: No hematoma or collection. US/[place] [id number] IMPRESSION: Distal monophasic waveforms consistent with peripheral arterial disease, a specific stenosis is not identified. Slightly decreased ankle-brachial index.
== END 2024-08-27 14:27 | disposition home or self-care (01) ==
LOC: RAD 14:28
PROVIDERS: PCP Clinical Nurse Specialist Adult Health; Visit Provider Thoracic Surgery (Cardiothoracic Vascular Surgery)
DX: E11.621 Type 2 diabetes mellitus with foot ulcer (principal); L97.509 Non-pressure chronic ulcer of other part of unspecified foot with unspecified severity; R93.89 Abnormal findings on diagnostic imaging of other specified body structures
CPT/HCPCS: 93926

== ENCOUNTER → 2024-08-29 14:19 | Outpatient (BNVA) | payer MEDICARE, MEDICAID, SELFPAY | PROVIDERS: PCP Clinical Nurse Specialist Adult Health; Visit Provider Thoracic Surgery (Cardiothoracic Vascular Surgery) | DX: E11.52 Type 2 diabetes mellitus with diabetic peripheral angiopathy with gangrene (principal); E11.621 Type 2 diabetes mellitus with foot ulcer; L97.511 Non-pressure chronic ulcer of other part of right foot limited to breakdown of skin; T87.81 Dehiscence of amputation stump; Y83.8 Other surgical procedures as the cause of abnormal reaction of the patient, or of later complication, without mention of misadventure at the time of the procedure; Z89.421 Acquired absence of other right toe(s) | CPT/HCPCS: 11043; 97597 ==

== ENCOUNTER → 2024-09-07 10:46 | Outpatient (BNVA) | payer MEDICARE, MEDICAID, SELFPAY | PROVIDERS: PCP Clinical Nurse Specialist Adult Health; Visit Provider Thoracic Surgery (Cardiothoracic Vascular Surgery) | DX: E11.52 Type 2 diabetes mellitus with diabetic peripheral angiopathy with gangrene (principal); E11.621 Type 2 diabetes mellitus with foot ulcer; L97.511 Non-pressure chronic ulcer of other part of right foot limited to breakdown of skin; T87.81 Dehiscence of amputation stump; Y83.8 Other surgical procedures as the cause of abnormal reaction of the patient, or of later complication, without mention of misadventure at the time of the procedure; Z89.421 Acquired absence of other right toe(s) | CPT/HCPCS: 11043; 97597 ==

== ENCOUNTER 2024-09-13 09:44 | Outpatient (CLI) | payer MEDICARE, MEDICAID, SELFPAY ==
--- NOTE | 2024-09-13 10:00 | CTR_ITS ---
PROCEDURE INFORMATION: Exam: CTA Abdominal Aorta and Bilateral Lower Extremities (Run-off) With Contrast Exam date and time: 09/13/2024 10:18 AM Age: 54 years old Clinical indication: Foot pain; Right; Prior surgery; Surgery date: 1-6 months; Surgery type: RT great toe; Great toe dehiscence; Abn. Arterial duplex TECHNIQUE: Imaging protocol: Computed tomographic angiography of the of the abdominal aorta, pelvis and bilateral lower extremities with contrast. 3D rendering (Not supervised by radiologist): MIP and/or 3D reconstructed images were created by the technologist. Radiation optimization: All CT scans at this facility use at least one of these dose optimization techniques: automated exposure control; mA and/or kV adjustment per patient size (includes targeted exams where dose is matched to clinical indication); or iterative reconstruction. Contrast material: OMNIPAQUE 350; Contrast volume: 125 ml; Contrast route: INTRAVENOUS (IV); COMPARISON: CT abdomen pelvis w con* [id number] 08/15/2024 12:58 PM RADIATION DOSE METRICS: Total DLP (mGy-cm): 1457.59 FINDINGS: Aorta: No aortic aneurysm. No aortic dissection. Celiac trunk and mesenteric arteries: No occlusion or significant stenosis. Renal arteries: No occlusion or significant stenosis. Right iliac arteries: No occlusion or significant stenosis. Right femoral/popliteal arteries: No occlusion or significant stenosis. Right infrapopliteal arteries: No occlusion or significant stenosis. Left iliac arteries: No occlusion or significant stenosis. Left femoral/popliteal arteries: No occlusion or significant stenosis. Left infrapopliteal arteries: No occlusion or significant stenosis. Liver: No mass. Gallbladder and biliary ducts: Unremarkable. No calcified stones. No ductal dilation. Pancreas: Unremarkable. No mass. No ductal dilation. Spleen: Normal. No splenomegaly. Adrenal glands: Normal. No mass. Kidneys and ureters: Normal. No mass. Stomach and bowel: Diverticulosis without evidence of diverticulitis. Appendix: No evidence of appendicitis. Urinary bladder: Unremarkable. No mass. Reproductive: Unremarkable as visualized. Intraperitoneal space: Unremarkable. No free air. No significant fluid collection. Lymph nodes: No lymphadenopathy. Bones/joints: No acute fracture. No dislocation. Soft tissues: Small umbilical hernia containing only fat. Mild swelling and subcutaneous stranding between the mid calf and foot on the right side representing either edema or cellulitis. CT/CT angio abd aorta runof [id number] IMPRESSION: No acute vascular pathology.
[2024-09-13] MEDS: iohexol 350 mg/mL 500 mL Btl (per mL) IV (10:33)
== END 2024-09-13 09:45 | disposition home or self-care (01) ==
PROVIDERS: PCP Clinical Nurse Specialist Adult Health; Visit Provider Thoracic Surgery (Cardiothoracic Vascular Surgery)
DX: T87.81 Dehiscence of amputation stump (principal); X58.XXXA Exposure to other specified factors, initial encounter; K57.30 Diverticulosis of large intestine without perforation or abscess without bleeding; K42.9 Umbilical hernia without obstruction or gangrene; R93.6 Abnormal findings on diagnostic imaging of limbs
CPT/HCPCS: 75635

== ENCOUNTER → 2024-09-14 09:07 | Outpatient (BNVA) | payer MEDICARE, MEDICAID, SELFPAY | PROVIDERS: PCP Clinical Nurse Specialist Adult Health; Visit Provider Thoracic Surgery (Cardiothoracic Vascular Surgery) | DX: E11.52 Type 2 diabetes mellitus with diabetic peripheral angiopathy with gangrene (principal); E11.621 Type 2 diabetes mellitus with foot ulcer; L97.511 Non-pressure chronic ulcer of other part of right foot limited to breakdown of skin; T87.81 Dehiscence of amputation stump; Y83.8 Other surgical procedures as the cause of abnormal reaction of the patient, or of later complication, without mention of misadventure at the time of the procedure; Z89.421 Acquired absence of other right toe(s) | CPT/HCPCS: 11044; 87070; 87176; 87205; 97597 ==

== ENCOUNTER → 2024-09-17 14:56 | Outpatient (BNVA) | payer MEDICARE, MEDICAID, SELFPAY | PROVIDERS: PCP Clinical Nurse Specialist Adult Health; Visit Provider Podiatrist Foot & Ankle Surgery | DX: E11.621 Type 2 diabetes mellitus with foot ulcer (principal); L97.514 Non-pressure chronic ulcer of other part of right foot with necrosis of bone; E11.8 Type 2 diabetes mellitus with unspecified complications; E11.65 Type 2 diabetes mellitus with hyperglycemia; Z89.421 Acquired absence of other right toe(s); I73.9 Peripheral vascular disease, unspecified | CPT/HCPCS: 11044; 73630; 99214 ==

== ENCOUNTER 2024-09-19 10:10 | Day surgery (SDC) | payer MEDICARE, MEDICAID, SELFPAY ==
[2024-09-19] VITALS (7 sets, daily range): BP systolic 120–150; BP diastolic 68–90; PULSE 81–101; RESP 16–20; TEMP 36.2–36.8; O2SAT 98–100; BMI 22.9
--- NOTE | 2024-09-19 10:28 | ANES.PREANE2 ---
Pre-Anesthetic Assessment Height/Weight: Height 5 ft 10 in Preop Diagnosis: Osteomyelitis right foot Operation Date: 09/19/24 12:00 Proposed Procedures p Incision and debridement right foot(Right) - Lester Fall DPM Was Beta Khoi taken within 24 hours: N/A Was Clonidine taken within 24 hours: N/A Social Tobacco and No alcohol Exam alert, oriented x 3, clear to auscultation bilaterally and regular rate & rhythm Airway Submandibular: within normal limits Cervical ROM: within normal limits Mallampati: Class II Comments: Comments: edentulous Anesthetic Plan ASA status: 3 Anesthesia: MAC Other: Patient states that he woke up a little while from general anesthesia in the past but did fine with recent anesthetic NPO since yesterday Patient has a history of diabetes, on Jardiance and insulin. Patient also takes dulaglutide. Last taken 09/08/2024. Most recent A1c was 12.3 History of A-fib with RVR Hypertension History of CVA, left sided weakness MARKO no CPAP Labs 08/15/2024 reviewed and acceptable for procedure. Plan for MAC anesthetic with local via surgeon Medications/Allergies Home Medications ?Medication ?Instructions ?Recorded ?Confirmed ?Last Taken ?Type aspirin 81 mg tablet,delayed 81 mg PO DAILY 30 days #30 tabs 09/22/23 09/18/24 Unknown Rx release (Adult Low Dose Aspirin) fluticasone 250 mcg-salmeterol 50 1 inh inhalation BID 30 days #1 ea 09/22/23 09/18/24 09/18/24 Rx mcg/dose blistr powdr for inhalation (Advair Diskus) citalopram 20 mg tablet 20 mg PO DAILY 30 days #30 tabs 06/13/24 09/18/24 Unknown Rx dulaglutide 1.5 mg/0.5 mL 1.5 mg (0.5 mL) SUBCUT .weekly 30 06/13/24 09/18/24 09/08/24 Rx subcutaneous pen injector days #4 ea (Trulicity) insulin degludec 100 unit/mL (3 70 unit (0.7 mL) SUBCUT DAILY 30 06/13/24 09/18/24 09/08/24 Rx mL) subcutaneous pen (Tresiba days #15 mL FlexTouch U-100 insulin) empagliflozin 25 mg tablet 25 mg PO DAILY 07/11/24 09/18/24 Unknown History (Jardiance) Diabetic shoe with 3 sets insoles #1 ea 08/03/24 09/17/24 Unknown Rx ondansetron 4 mg disintegrating 4 mg PO Q6H PRN nausea and 08/15/24 09/18/24 Unknown Rx tablet vomiting #14 tabs sodium hypochlorite 0.125 % 1 applic topical DAILY wet to dry 08/29/24 09/18/24 Unknown Rx solution (Dakin's Solution) dressing #473 mL sulfamethoxazole 200 20 ml PO BID 09/17/24 09/18/24 09/18/24 History mg-trimethoprim 40 mg/5 mL oral suspension Allergies Allergy/AdvReac Type Severity Reaction Status Date / Time lisinopril Allergy Severe angioedema Verified 09/07/24 16:48 gabapentin Allergy ADR-Muscle Verified 09/18/24 11:01 Pain Penicillins Allergy ALGY-Bliste Verified 09/18/24 11:01 r [facility] Anesthesia Medical History Atrial fibrillation with RVR witnessed in hospital 07/2024 Angioedema of lips r/t lisinopril Diabetes mellitus type 2 with complications, uncontrolled Essential (primary) hypertension Diabetic neuropathy Diabetic foot ulcer Tobacco abuse disorder Dependence on nocturnal oxygen therapy History of ND (myocardial infarction) On supplemental oxygen by nasal cannula Enrolled in chronic care management Noncompliance Chronic obstructive pulmonary disease, unspecified PVD (peripheral vascular disease) MARKO (obstructive sleep apnea) unable to tolerate Cpap due to claustrophobia Hyperlipidemia, acquired History of TIA (transient ischemic attack) saw neurology after his TIA/stroke. Calculus of gallbladder with cholecystitis Ileus Surgical History Amputated toe of right foot Hx of cholecystectomy H/O right inguinal hernia repair Family History Other Diabetes Heart disease Stroke Social History Smoking and tobacco/nicotine status: current every day tobacco/nicotine user cigarettes [ Other cigarette details: 35 pack year history] Second hand smoke exposure: Yes Alcohol intake: never Substance/Drug Use: never Adopted: No Caregiver/support person: No Lives independently: Yes Household members: none Marital status: Single service: No Current occupational status: disabled Do you think of yourself as: Straight/Heterosexual Current gender identity: Male Data Anesthesia Cardiac Studies: Echocardiogram 07/14/24
[2024-09-19] MEDS: sodium chloride 0.9% 1,000 ML 30 ML IV (10:56)
[2024-09-19] MEDS: VANCOMYCIN ADD-Vantage 1,000 MG in 0.9% NaCl ADD-Vantage 250 ML 250 MG IV (10:56)
[2024-09-19 11:06] LABS: Glucose Point of Care 195 mg/dL (70-110)
--- NOTE | 2024-09-19 11:46 | W.PM.OPSUD ---
Surgery/Procedure H&P Update DATE OF PROCEDURE: September 19, 2024 DATE H&P PERFORMED: 09/17/24 H&P UPDATE INFORMATION: I have reviewed H&P completed within last 30 days, I have examined patient prior to procedure, No changes to prior documentation and H&P is in [facility] EMR on date indicated PREOP DIAGNOSIS: Osteomyelitis right foot PLANNED PROCEDURE: Operation Date: 09/19/24 12:00 Proposed Procedures p Incision and debridement right foot(Right) - Lester Fall DPM
[2024-09-19] MEDS: vancomycin 1,000 MG SDV 1000 MG XX (12:26)
[2024-09-19] MEDS: BUPivacaine 0.5% INJ 30 mL 20 ML INJECTION (12:26)
--- NOTE | 2024-09-19 12:49 | P.BOP_ITS ---
Date of Procedure: 10/21/23 Surgeon: Lester Fall DPM Plastic Sheets Finishing Supervisor(s): Shantal Procedure(s) performed: Incision and debridement with secondary closure right foot Findings of the procedure(s): Estimated blood loss: 5 mL Specimen(s) removed: None Post-operative diagnosis: Right diabetic foot infection, right foot osteomyelitis, dehiscence right foot
--- NOTE | 2024-09-19 12:50 | PM.OP ---
Operative Report Date of procedure: September 19, 2024 Implants: 2-0 Vicryl, 3-0 nylon Surgeon: Lester Fall DPM Sound Recordist: Shantal Estimated blood loss: 5 21
--- NOTE | 2024-09-19 13:31 | P.OP_ITS ---
Operative Report Date of procedure: September 27, 2024 Pre-op diagnosis: Osteomyelitis right foot. ICD 10 code L97.514 Disruption of surgical wound T81.31 XA Post-op diagnosis: Osteomyelitis right foot. ICD 10 code L97.514 Disruption of surgical wound T81.31 XA Procedure done: Delayed closure right foot. CPT code 11406 Implants: 2-0 Vicryl, 3-0 nylon Surgeon: Lester Fall DPM X Ray Equipment Servicer: Shantal Estimated blood loss: 2 21 IV fluids: See intraoperative documentation Brief History: Right fifth toe amputation July 11, 2024 secondary to gangrene has underwent dehiscence. The full thickness wound at the amputation site presents notable complications, particularly due to its probing depth to the bone and the presence of devitalized tissue. Based on the wound's progression and previous culture results, surgical debridement with consideration for delayed closure is necessary to mitigate infection risks and enhance healing. I recommend Bactrim to address any ongoing infection, particularly considering previous culture findings. The patient's uncontrolled glucose levels, driven by diabetes, are likely contributing to impaired healing, thus strict glycemic control is imperative. Given the patient's peripheral neuropathy, ongoing assessment of sensory changes is needed to address these symptoms effectively and prevent further deterioration. Informed patient that delayed closure will be deemed appropriate if his wound appears viable and healthy postdebridement and may be required to be left open for tertiary healing. Procedure: The patient was brought to the operating room and placed in the supine position. Anesthesia was administered by the anesthesia service. The right foot was prepped and draped in the usual sterile fashion. Local anesthetic consisting of local anesthesia injected 1% lidocaine plain reverse Grossman block right foot was infiltrated into the surrounding tissue. The dehisced wound at the right fifth toe amputation site was examined. There was evidence of exposed bone, specifically the distal aspect of the fifth metatarsal, as well as devitalized soft tissue, including muscle, fascia, and subcutaneous tissue. Sharp and excisional debridement was performed. Using a #15 blade and surgical pickups, all nonviable tissue was meticulously excised. This included debridement down to healthy, bleeding bone on the fifth metatarsal. Devitalized muscle, fascia, and subcutaneous tissue were also sharply debrided until healthy tissue margins were achieved. Copious irrigation of the wound was performed using sterile saline solution to remove any remaining debris and bacteria. Hemostasis was achieved using electrocautery. Once adequate debridement and irrigation were confirmed, the wound was prepared for layered closure. The deep layers, including the fascia and subcutaneous tissue, were approximated using 2-0 Vicryl sutures in an interrupted fashion. The skin was then closed using 3-0 nylon sutures in an interrupted, simple stitch pattern. The wound edges were well-approximated. Sterile dressings were applied to the wound. The patient was then transferred to the recovery room in stable condition. Findings: * Dehisced surgical wound at the right fifth toe amputation site. * Exposed distal fifth metatarsal. * Devitalized soft tissue, including muscle, fascia, and subcutaneous tissue. * Healthy, bleeding bone after debridement. * Well-approximated wound closure. Dressings consisting of Xeroform, sterile 4 x 4 gauze Kerlix followed by well- padded multilayer compressive posterior splint. Tourniquet was deflated and a prompt hyperemic response is noted to the distal digits remaining of the right foot. Patient tolerated the procedure well and was transferred to the PACU with vital signs stable and vascular status intact. He was advised to continue Bactrim DS twice daily, remain nonweightbearing to the right foot was given at home care instructions and scheduled follow-up.
--- NOTE | 2024-09-19 13:43 | ANE.PACU2 ---
Inpatient post-anesthesia follow up: Airway intact: Yes Vital signs: Temperature 97.5 F Pulse Rate 86 Respiratory Rate 18 Blood Pressure 150/87 Pulse Oximetry 100 Oxygen Delivery Me thod Room Air Oxygen Flow Rate Fraction of Inspir ed Oxygen Hydration adequate: Yes Nausea and vomiting: No Pain level: 1 Mental status: Baseline
== END 2024-09-19 13:43 | disposition home or self-care (01) ==
PROVIDERS: PCP Clinical Nurse Specialist Adult Health; Visit Provider Podiatrist Foot & Ankle Surgery
PROC: (CPT 13160; principal; 2024-09-19 12:00)
DX: T81.31XA Disruption of external operation (surgical) wound, not elsewhere classified, initial encounter (principal); L97.514 Non-pressure chronic ulcer of other part of right foot with necrosis of bone; Y83.8 Other surgical procedures as the cause of abnormal reaction of the patient, or of later complication, without mention of misadventure at the time of the procedure; I48.91 Unspecified atrial fibrillation; I10 Essential (primary) hypertension; G47.33 Obstructive sleep apnea (adult) (pediatric); Z79.899 Other long term (current) drug therapy; Z79.82 Long term (current) use of aspirin; Z79.85 Long-term (current) use of injectable non-insulin antidiabetic drugs; Z79.4 Long term (current) use of insulin; Z79.84 Long term (current) use of oral hypoglycemic drugs; Z88.0 Allergy status to penicillin; Z88.8 Allergy status to other drugs, medicaments and biological substances; E11.40 Type 2 diabetes mellitus with diabetic neuropathy, unspecified; Z90.49 Acquired absence of other specified parts of digestive tract; E78.5 Hyperlipidemia, unspecified; I25.2 Old myocardial infarction; J44.9 Chronic obstructive pulmonary disease, unspecified; I73.9 Peripheral vascular disease, unspecified; Z86.73 Personal history of transient ischemic attack (TIA), and cerebral infarction without residual deficits; F17.210 Nicotine dependence, cigarettes, uncomplicated; Z89.421 Acquired absence of other right toe(s); E11.621 Type 2 diabetes mellitus with foot ulcer
CPT/HCPCS: 13160; 36416; 82962; J2704; J3010; J3370; J3490; J7030; J7050

== ENCOUNTER → 2024-09-21 15:05 | Outpatient (BNVA) | payer MEDICARE, MEDICAID, SELFPAY | PROVIDERS: PCP Clinical Nurse Specialist Adult Health; Visit Provider Podiatrist Foot & Ankle Surgery | DX: E11.621 Type 2 diabetes mellitus with foot ulcer (principal); L97.514 Non-pressure chronic ulcer of other part of right foot with necrosis of bone; E11.65 Type 2 diabetes mellitus with hyperglycemia; Z89.421 Acquired absence of other right toe(s); I73.9 Peripheral vascular disease, unspecified; Z79.4 Long term (current) use of insulin | CPT/HCPCS: 99213 ==

== ENCOUNTER → 2024-09-24 09:58 | Outpatient (BNVA) | payer MEDICARE, MEDICAID, SELFPAY | PROVIDERS: PCP Clinical Nurse Specialist Adult Health; Visit Provider Podiatrist Foot & Ankle Surgery | DX: Z98.890 Other specified postprocedural states (principal); E11.8 Type 2 diabetes mellitus with unspecified complications; E11.65 Type 2 diabetes mellitus with hyperglycemia; Z89.421 Acquired absence of other right toe(s); I73.9 Peripheral vascular disease, unspecified; L97.514 Non-pressure chronic ulcer of other part of right foot with necrosis of bone; Z79.4 Long term (current) use of insulin | CPT/HCPCS: 99213 ==

== ENCOUNTER → 2024-09-27 10:05 | Outpatient (BNVA) | payer MEDICARE, MEDICAID, SELFPAY | PROVIDERS: PCP Clinical Nurse Specialist Adult Health; Visit Provider Clinical Nurse Specialist Adult Health | DX: E11.65 Type 2 diabetes mellitus with hyperglycemia (principal); E11.42 Type 2 diabetes mellitus with diabetic polyneuropathy | CPT/HCPCS: 80053; 83036; 85025 ==

== ENCOUNTER → 2024-10-04 14:27 | Outpatient (BNVA) | payer MEDICARE, MEDICAID, SELFPAY | PROVIDERS: PCP Clinical Nurse Specialist Adult Health; Visit Provider Podiatrist Foot & Ankle Surgery | DX: E11.621 Type 2 diabetes mellitus with foot ulcer (principal); L97.511 Non-pressure chronic ulcer of other part of right foot limited to breakdown of skin; E11.8 Type 2 diabetes mellitus with unspecified complications; E11.65 Type 2 diabetes mellitus with hyperglycemia; Z89.421 Acquired absence of other right toe(s); I73.9 Peripheral vascular disease, unspecified; Z79.4 Long term (current) use of insulin | CPT/HCPCS: 99213 ==

== ENCOUNTER → 2024-10-11 09:24 | Outpatient (BNVA) | payer MEDICARE, MEDICAID, SELFPAY | PROVIDERS: PCP Clinical Nurse Specialist Adult Health; Visit Provider Podiatrist Foot & Ankle Surgery | DX: Z98.890 Other specified postprocedural states (principal) | CPT/HCPCS: 99213 ==

== ENCOUNTER → 2024-10-18 08:39 | Outpatient (BNVA) | payer MEDICARE, MEDICAID, SELFPAY | PROVIDERS: PCP Clinical Nurse Specialist Adult Health; Visit Provider Podiatrist Foot & Ankle Surgery | DX: Z98.890 Other specified postprocedural states (principal); E11.8 Type 2 diabetes mellitus with unspecified complications; E11.65 Type 2 diabetes mellitus with hyperglycemia; Z89.421 Acquired absence of other right toe(s); I73.9 Peripheral vascular disease, unspecified; Z79.4 Long term (current) use of insulin | CPT/HCPCS: 36415; 73630; 80053; 85025; 85651; 86140; 99213 ==

== ENCOUNTER → 2024-10-25 08:22 | Outpatient (BNVA) | payer MEDICARE, MEDICAID, SELFPAY | PROVIDERS: PCP Clinical Nurse Specialist Adult Health; Visit Provider Podiatrist Foot & Ankle Surgery | DX: E11.621 Type 2 diabetes mellitus with foot ulcer (principal); L97.513 Non-pressure chronic ulcer of other part of right foot with necrosis of muscle; E11.8 Type 2 diabetes mellitus with unspecified complications; E11.65 Type 2 diabetes mellitus with hyperglycemia; Z89.421 Acquired absence of other right toe(s); I73.9 Peripheral vascular disease, unspecified; Z79.4 Long term (current) use of insulin | CPT/HCPCS: 11043 ==

== ENCOUNTER → 2024-11-05 07:27 | Outpatient (BNVA) | payer MEDICARE, MEDICAID, SELFPAY | PROVIDERS: PCP Clinical Nurse Specialist Adult Health; Visit Provider Podiatrist Foot & Ankle Surgery | DX: E11.621 Type 2 diabetes mellitus with foot ulcer (principal); L97.513 Non-pressure chronic ulcer of other part of right foot with necrosis of muscle; E11.65 Type 2 diabetes mellitus with hyperglycemia; Z89.421 Acquired absence of other right toe(s); I73.9 Peripheral vascular disease, unspecified; Z79.4 Long term (current) use of insulin | CPT/HCPCS: 11043 ==

== ENCOUNTER → 2024-11-08 11:00 | Outpatient (BNVA) | payer MEDICARE, MEDICAID, SELFPAY | PROVIDERS: PCP Clinical Nurse Specialist Adult Health; Visit Provider Clinical Nurse Specialist Adult Health | DX: E11.8 Type 2 diabetes mellitus with unspecified complications (principal); E11.65 Type 2 diabetes mellitus with hyperglycemia | CPT/HCPCS: 80053; 83036; 85025 ==

== ENCOUNTER → 2024-11-12 08:15 | Outpatient (BNVA) | payer MEDICARE, MEDICAID, SELFPAY | PROVIDERS: PCP Clinical Nurse Specialist Adult Health; Visit Provider Podiatrist Foot & Ankle Surgery | DX: E11.621 Type 2 diabetes mellitus with foot ulcer (principal); L97.512 Non-pressure chronic ulcer of other part of right foot with fat layer exposed; E11.8 Type 2 diabetes mellitus with unspecified complications; E11.65 Type 2 diabetes mellitus with hyperglycemia; Z89.421 Acquired absence of other right toe(s); I73.9 Peripheral vascular disease, unspecified; Z79.4 Long term (current) use of insulin | CPT/HCPCS: 99213 ==

== ENCOUNTER → 2024-11-19 08:10 | Outpatient (BNVA) | payer MEDICARE, MEDICAID, SELFPAY | PROVIDERS: PCP Clinical Nurse Specialist Adult Health; Visit Provider Podiatrist Foot & Ankle Surgery | DX: E11.8 Type 2 diabetes mellitus with unspecified complications (principal); E11.65 Type 2 diabetes mellitus with hyperglycemia; Z89.421 Acquired absence of other right toe(s); I73.9 Peripheral vascular disease, unspecified; L97.512 Non-pressure chronic ulcer of other part of right foot with fat layer exposed; E11.621 Type 2 diabetes mellitus with foot ulcer; Z79.4 Long term (current) use of insulin | CPT/HCPCS: 99213 ==

== ENCOUNTER → 2024-11-22 11:36 | Outpatient (BNVA) | payer MEDICARE, MEDICAID, SELFPAY | PROVIDERS: PCP Clinical Nurse Specialist Adult Health; Visit Provider Clinical Nurse Specialist Adult Health | DX: E11.65 Type 2 diabetes mellitus with hyperglycemia (principal) | CPT/HCPCS: 82962 ==

== ENCOUNTER → 2024-12-03 09:03 | Outpatient (BNVA) | payer MEDICARE, MEDICAID, SELFPAY | PROVIDERS: PCP Clinical Nurse Specialist Adult Health; Visit Provider Podiatrist Foot & Ankle Surgery | DX: E11.621 Type 2 diabetes mellitus with foot ulcer (principal); L97.512 Non-pressure chronic ulcer of other part of right foot with fat layer exposed; E11.65 Type 2 diabetes mellitus with hyperglycemia; Z89.421 Acquired absence of other right toe(s); I73.9 Peripheral vascular disease, unspecified | CPT/HCPCS: 99213 ==

== ENCOUNTER → 2024-12-17 08:19 | Outpatient (BNVA) | payer MEDICARE, MEDICAID, SELFPAY | PROVIDERS: PCP Clinical Nurse Specialist Adult Health; Visit Provider Podiatrist Foot & Ankle Surgery | DX: E11.8 Type 2 diabetes mellitus with unspecified complications (principal); E11.65 Type 2 diabetes mellitus with hyperglycemia; Z89.421 Acquired absence of other right toe(s); I73.9 Peripheral vascular disease, unspecified; Z79.4 Long term (current) use of insulin | CPT/HCPCS: 99213 ==

== ENCOUNTER → 2024-12-20 09:41 | Outpatient (BNVA) | payer MEDICARE, MEDICAID, SELFPAY | PROVIDERS: PCP Clinical Nurse Specialist Adult Health; Visit Provider Clinical Nurse Specialist Adult Health | DX: E11.9 Type 2 diabetes mellitus without complications (principal) | CPT/HCPCS: 80053; 80061; 82607; 83036 ==

== ENCOUNTER → 2025-01-14 09:03 | Outpatient (BNVA) | payer MEDICARE, MEDICAID, SELFPAY | PROVIDERS: PCP Clinical Nurse Specialist Adult Health; Visit Provider Internal Medicine | DX: E11.65 Type 2 diabetes mellitus with hyperglycemia (principal); E11.42 Type 2 diabetes mellitus with diabetic polyneuropathy; Z79.4 Long term (current) use of insulin | CPT/HCPCS: 80053; 82947; 84681; 86337; 86341 ==

== ENCOUNTER → 2025-01-28 09:02 | Outpatient (BNVA) | payer MEDICARE, MEDICAID, SELFPAY | PROVIDERS: PCP Clinical Nurse Specialist Adult Health; Visit Provider Podiatrist Foot & Ankle Surgery | DX: E11.8 Type 2 diabetes mellitus with unspecified complications (principal); E11.65 Type 2 diabetes mellitus with hyperglycemia; Z89.421 Acquired absence of other right toe(s); I73.9 Peripheral vascular disease, unspecified; Z79.4 Long term (current) use of insulin | CPT/HCPCS: 99213 ==

== ENCOUNTER → 2025-02-18 08:07 | Outpatient (BNVA) | payer MEDICARE, MEDICAID, SELFPAY | PROVIDERS: PCP Clinical Nurse Specialist Adult Health; Visit Provider Internal Medicine | DX: E78.5 Hyperlipidemia, unspecified (principal); E11.9 Type 2 diabetes mellitus without complications; Z79.4 Long term (current) use of insulin; E11.42 Type 2 diabetes mellitus with diabetic polyneuropathy | CPT/HCPCS: 99214 ==

== ENCOUNTER → 2025-04-16 09:28 | Outpatient (BNVA) | payer OTHER, MEDICAID, SELFPAY | PROVIDERS: PCP Clinical Nurse Specialist Adult Health; Visit Provider Podiatrist Foot & Ankle Surgery | DX: E11.8 Type 2 diabetes mellitus with unspecified complications (principal); Z89.421 Acquired absence of other right toe(s); I73.9 Peripheral vascular disease, unspecified; Z79.4 Long term (current) use of insulin | CPT/HCPCS: 99213 ==

== ENCOUNTER → 2025-04-18 14:39 | Outpatient (BNVA) | payer OTHER, MEDICAID, SELFPAY | PROVIDERS: PCP Clinical Nurse Specialist Adult Health; Visit Provider Internal Medicine | DX: I48.91 Unspecified atrial fibrillation (principal); Z86.73 Personal history of transient ischemic attack (TIA), and cerebral infarction without residual deficits; I10 Essential (primary) hypertension | CPT/HCPCS: 99214 ==

== ENCOUNTER 2025-05-15 10:44 | Outpatient (CLI) | payer OTHER, MEDICAID, SELFPAY ==
[2025-05-15 12:11] LABS: Alanine Aminotransferase 15 U/L (0-41); Albumin Level 4.2 g/dL (3.5-5.2); Alkaline Phosphatase 99 U/L (40-130); Anion Gap 13.3 (5-19); Aspartate Amino Transferase 13 U/L (0-40); Blood Urea Nitrogen 9 mg/dL (6-20); Calcium 9.0 mg/dL (8.5-10.5); Carbon Dioxide 27 mmol/L (22-29); Chloride 103 mmol/L (98-107); Cholesterol 147 mg/dL (0-200); Globulin 2.7 g/dL (1.3-4.6); Glucose 139 mg/dL (65-115); HDL Cholesterol 54 mg/dL (60-100); Osmolality Calculated 289 mOsm/kg (285-295); Potassium 4.3 mmol/L (3.5-5.1); Sodium 139 mmol/L (136-145); Total Protein 6.9 g/dL (6.6-8.7); Triglycerides 77 mg/dL (0-150)
[2025-05-15 12:16] LABS: Creatinine Urine, Random 68 mg/dL (39-259); Microalbum Creatinine Ratio Ur 15 mg/dL (0-20)
[2025-05-15 12:17] LABS: Estmated Average Glucose 275; Hemoglobin A1C 11.2 % (4.0-6.0)
== END 2025-05-15 10:45 | disposition home or self-care (01) ==
LOC: LAB 10:48
PROVIDERS: PCP Clinical Nurse Specialist Adult Health; Visit Provider Internal Medicine
DX: E11.8 Type 2 diabetes mellitus with unspecified complications (principal); E11.65 Type 2 diabetes mellitus with hyperglycemia; Z79.4 Long term (current) use of insulin; E11.42 Type 2 diabetes mellitus with diabetic polyneuropathy; E78.5 Hyperlipidemia, unspecified
CPT/HCPCS: 36415; 80053; 80061; 82044; 83036; 86337; 86341

== ENCOUNTER → 2025-05-20 08:06 | Outpatient (BNVA) | payer MEDICARE, MEDICAID, SELFPAY | PROVIDERS: PCP Clinical Nurse Specialist Adult Health; Visit Provider Internal Medicine | DX: E11.65 Type 2 diabetes mellitus with hyperglycemia (principal); E78.5 Hyperlipidemia, unspecified; E11.42 Type 2 diabetes mellitus with diabetic polyneuropathy; Z79.4 Long term (current) use of insulin | CPT/HCPCS: 99214 ==

== ENCOUNTER → 2025-07-16 10:44 | Outpatient (BNVA) | payer MEDICARE, MEDICAID, SELFPAY | PROVIDERS: PCP Clinical Nurse Specialist Adult Health; Visit Provider Podiatrist Foot & Ankle Surgery | DX: E11.8 Type 2 diabetes mellitus with unspecified complications (principal); Z89.421 Acquired absence of other right toe(s); I73.9 Peripheral vascular disease, unspecified; Z79.4 Long term (current) use of insulin | CPT/HCPCS: 99213 ==